=== PATIENT | male | born 1950 | race Caucasian/White ===

== ENCOUNTER → 2020-01-21 14:00 | Outpatient (BNV) | payer MEDICARE, SELFPAY | PROVIDERS: PCP Internal Medicine; Visit Provider Internal Medicine Medical Oncology | DX: C83.15 Mantle cell lymphoma, lymph nodes of inguinal region and lower limb (principal) | CPT/HCPCS: 99212; 99213; 99214 ==

== ENCOUNTER 2020-02-02 09:01 | Outpatient (REF) | payer MEDICARE, SELFPAY ==
--- NOTE | 2020-02-02 08:36 | PE_ITS ---
EXAMINATION: Fluorine-18 FDG PET/CT Scan CLINICAL INDICATION: Subsequent treatment management. Mantle cell lymphoma, restaging. PROCEDURE: 76 minutes following the intravenous administration of 15.5 mCi of fluorine 18 FDG, images from the base of the skull to the mid thighs were obtained using a combined PET/CT scanner with CT scan based attenuation correction. No oral contrast was administered. No intravenous contrast was administered. Transverse, coronal, sagittal, and volume reconstruction projections were obtained. The patient's blood glucose as determined by a finger stick, was 105 mg/dl immediately prior to injection. Total CT exam dose-length product 498.98 mGy-cm COMPARISON: The previous PET CT scans dated 12/01/2019 and 10/02/2019 are available for comparison. FINDINGS: (Slice numbers described in this report are numbered superiorly to inferiorly with slice #1 in the head) NECK AND VISUALIZED HEAD: There is been a decrease in size and FDG avid cervical lymphadenopathy compared to the prior PET CT scan dated 12/01/2019. A left-sided cervical level 1B lymph node now shows SUV Max 3.1, versus SUV Max 4.8 previously and right-sided cervical level 2A lymphadenopathy normal shows SUV Max 2.4 versus SUV Max 4.1 previously. Additional weakly FDG avid subcentimeter cervical lymphadenopathy is present at multiple levels, but these lymph nodes appear smaller and now showing only weak FDG activity. No new FDG avid or enlarging cervical lymph nodes are now present. There is some right maxillary sinus mucosal thickening with no associated abnormal FDG activity unchanged from 12/01/2019. THORAX: FDG avid lymphadenopathy in the chest persists but is less intense on the current study. A focus in the suprasternal notch now shows SUV Max 3.8 versus SUV Max 4.8 previously. Left axillary lymphadenopathy has also decreased in FDG avidity, now showing SUV Max 1.8, versus SUV Max 3.7 previously. Additional mediastinal lymph nodes are present, almost all subcentimeter in size and showing only weak FDG activity. All appear similar or smaller in size and less FDG avid than on 12/01/2019. No new FDG avid lymphadenopathy is present. The mediastinal blood pool shows SUV Max 2.8. No pulmonary nodules are visualized. A small to moderately sized right pleural effusion is present with no abnormal FDG activity. The pleural effusion is slightly smaller than on 12/01/2019. There is no left-sided pleural fluid, pericardial fluid, or pneumothorax. ABDOMEN AND PELVIS: There continues to be mildly FDG avid bowel wall thickening in the cecal and right colon region, but this is less prominent than on 12/01/2019. On the current study this shows SUV Max 4.4, slice 178/267 versus SUV Max 6.1 previously. Previously present FDG avid retroperitoneal lymphadenopathy has resolved with no foci of more intense in blood pool present in the retroperitoneum. There is now no FDG avid retroperitoneal, mesenteric, pelvic or inguinal lymphadenopathy. The liver and spleen are unremarkable. Mildly increased FDG activity in the spleen compared to the liver present on 12/01/2019 is not now present. The kidneys are unremarkable. Some retained FDG activity in the mid to distal right ureter and minimal retained FDG activity in the left ureter are noted, but on both sides this appears similar or slightly less prominent than on 12/01/2019. No hydronephrosis is present on the CT images. The adrenal glands and pancreas are unremarkable. A small fat-containing periumbilical hernia is present. Small fat-containing inguinal hernias are present bilaterally and a stable appearing left-sided hydrocele is present and a very small right-sided hydrocele is present, smaller than on 12/01/2019. The liver shows SUV Max 3.6, slice 119/267. Peripherally calcified gallstones are present, unchanged from 12/01/2019. The gallbladder is otherwise unremarkable. MUSCULOSKELETAL: There is diffusely increased FDG activity in the axial bone marrow similar to 12/01/2019. No focal more intensely FDG avid lesions are present. There are degenerative changes in the spine but no suspicious sclerotic or lytic lesions are present. VASCULAR: Vascular calcifications including coronary are noted. PET/PET CT fusion skull to thigh IMPRESSION: 1. Continued improvement of FDG avid lymphadenopathy and FDG avid right colonic bowel wall thickening since 12/01/2019. No new FDG avid foci are present. Using the 5 point Deauville scale, this patient would be classified as a Deauville score of 4. 2. Cholelithiasis. 3. Vascular calcifications including coronary. 4. Small to moderately sized right pleural effusion which has decreased in size slightly since 12/01/2019.
== END 2020-02-02 09:02 | disposition home or self-care (01) ==
LOC: HO.PET 09:01
PROVIDERS: Visit Provider Internal Medicine Medical Oncology
DX: Z13.89 Encounter for screening for other disorder (principal)

== ENCOUNTER → 2020-02-10 09:21 | Outpatient (REF) | payer MEDICARE, SELFPAY ==
--- NOTE | 2020-02-10 09:25 | CA_ITS ---
Transthoracic Echocardiogram Patient (Last, First, Middle): Porfirio Nobles J Gender: Male Date of : 1950 Age: 69 Procedure Date: 02/10/2020 Procedure Type: Transthoracic Echocardiogram Location: OP Height: 165.1 cm Weight: 72.58 kg BSA: 1.80 m2 Heart Rate: bpm BP: 150 / 60 mmHg [employer] Specialist: RERE Olivares MD: Leslie Galvan MD Category Manager: Syed Lr MD Symptoms: status post 6 cycles of Adriamycin Study Quality: Good ECG Rhythm: Sinus Conclusions: - Normal biventricular function with impaired relaxation filling pattern of the left ventricle Findings Left Ventricle Normal left ventricular size, thickness, and systolic function. The visually estimated ejection fraction is between 60-65%. Spectral Doppler is indicative of an impaired relaxation filling pattern. E/E prime ratio is between 8 and 15 consistent with indeterminate filling pressures. Right Ventricle Normal right ventricular cavity size and systolic function. Pericardium/Pleural There is no evidence of pericardial effusion. Prior Study Comparison No significant change compared to prior study dated: 10/12/2019. Measurements 2D Linear Measurements LVIDd: 4.53 3.9-5.3/4.2-5.9 cm LVIDd Index: 2.52 2.4-3.2/2.2-3.1 cm/m2 LVIDs: 2.69 2.0-3.6 cm 2D Systolic Function EF 4C: 46.00 >55% EF 2C: 61.30 >55% EF BiP: 53.90 >55% Mitral Valve MV Pk E: 0.66 MV PK A: 0.83 MV Decel Time: 235.00 E/A: 0.80 E'Lateral: 7.40 E'Medial: 5.87 E/E' Med: 11.30 E/E' Lat: 8.90 PHT: 69.00 MVA PHT: 3.19 Decel Juab: 2.82 Diastolic Function MV Pk E: 0.66 MV Pk A: 0.83 E/A: 0.80 E'Medial: 5.87 E/E' Med: 11.30 E' Laterial: 7.40 E/E' Lat: 8.90 Tricuspid Valve TR Pk Fidencio: 2.52 TR Pk Grad: 25.00 Updated in Other Vendor System with Status of Final Syed Lr MD electronically signed on 02/10/2020 11:20:35 AM with status of Final
== END ==
LOC: HO.CARD 09:21
PROVIDERS: Visit Provider Internal Medicine Medical Oncology
DX: T45.1X5A Adverse effect of antineoplastic and immunosuppressive drugs, initial encounter (principal)
CPT/HCPCS: 93308; 93356

== ENCOUNTER 2020-08-18 12:03 | Outpatient (REF) | payer MEDICARE, SELFPAY ==
[2020-08-18 14:50] LABS: PSA,Total (Free>4and<10) 9.77 ng/mL (0.00-4.00)
[2020-08-19 11:32] LABS: Free Prostate Spec Ag 1.6 ng/mL; Percent Free Prostate Spec Ag 18 % (calc) (>25); Prostate Specific Ag Total 9.1 ng/mL (< OR = 4.0)
== END 2020-08-18 12:04 | disposition home or self-care (01) ==
LOC: HO.10HDL 12:03
PROVIDERS: Visit Provider Urology
DX: R97.20 Elevated prostate specific antigen [PSA] (principal); Z12.5 Encounter for screening for malignant neoplasm of prostate
CPT/HCPCS: 36415; 84153; 84154

== ENCOUNTER → 2020-09-02 14:18 | Outpatient (BNVA) | payer MEDICARE, SELFPAY | PROVIDERS: PCP Internal Medicine; Visit Provider Urology | DX: Z13.89 Encounter for screening for other disorder (principal) | CPT/HCPCS: 99212 ==

== ENCOUNTER 2020-09-16 12:33 | Outpatient (REF) | payer MEDICARE, SELFPAY ==
--- NOTE | ~2020-09-16 | CT_ITS ---
EXAMINATION: CT ABDOMEN AND PELVIS WITH CONTRAST CLINICAL INFORMATION: Follow-up lymphoma. COMPARISON: None TECHNIQUE: Multidetector volumetric images were obtained from the superior aspect of the liver through the pubic symphysis following administration 85 mL of Omnipaque 350 intravenous contrast. Sagittal and coronal reformatted images were obtained on the technologist's workstation. Oral contrast: No This CT examination was performed using dose optimization techniques as appropriate, variously including the following: *Automated exposure control *Adjustment of mA and/or kV according to patient size (this includes techniques or standardized protocols for targeted exams where dose is matched to indication/reason for exam; i.e. extremities or head) *Use of iterative reconstruction technique DLP: 456 mGy-cm FINDINGS: LUNG BASES: The heart size is normal. The lung bases are clear. LIVER, GALLBLADDER, AND BILIARY TREE: The liver is normal in size, shape, and attenuation. No focal hepatic lesion or biliary ductal dilatation is present. As solitary gallstone measuring 2.3 cm. No gallbl.adder wall thickening seen. PANCREAS: Unremarkable. SPLEEN: Unremarkable. ADRENAL GLANDS: The right adrenal gland appears unremarkable. There is 1.5 x 1.5 cm lesion left adrenal gland. KIDNEYS AND URETERS: The kidneys are normal in size, shape, and attenuation. No hydronephrosis, hydroureter, or calculi seen. No perinephric stranding. BLADDER: The bladder is undistended with mild bladder wall thickening. GASTROINTESTINAL TRACT: There is a soft tissue mass measuring 2.3 cm in the cecum, axial image 50/3, 2.6 cm lesion in the right transverse colon on axial image 31/3. No additional lesions seen. There is scattered stool in the colon. The small bowel loops are normal caliber appendix is not seen the stomach is nondistended. ABDOMINAL WALL: There is a small umbilical hernia containing fat . LYMPH NODES: There are small shotty lymph nodes measuring 5 mm in the left para-aortic space image 30/3, right retroperitoneal 1.3 cm lymph node axial image 44/3, right retrocrural 1 cm lymph node image 17/3. No mesenteric lymph nodes seen. Soft tissue mass along the left pelvic wall likely matted lymphadenopathy it measures 7.0 x 4.0 cm on axial image 60/3, previously it measured 5.6 x 3.5 cm. There is a central calcified lymph node right axillary iliac vein measuring 2.2 cm and axial image 62/3 it appears stable. VASCULAR: Unremarkable. PELVIC VISCERA: There is mild prostate enlargement. The periprostatic fat planes are preserved. OSSEOUS STRUCTURES: No lytic or sclerotic process seen. There is vacuum disc phenomena L4-L5-S1 disc levels. Moderate L5-S1, L4-L5 and L3-L4 facet arthropathy is noted. CT/CT abdomen pelvis w con IMPRESSION: Left pelvic wall matted adenopathy appears slightly larger compared to PET CT exam 09/16/2020. There are small shotty lymph nodes in the retroperitoneum largest measuring 1 cm. Prominent matted right external iliac calcified lymph nodes are stable. There are soft tissue lesions in the cecum and right transverse colon. These lesions were metabolically active on the previous PET study from 02/02/2020. Significantly enlarged prostate gland indenting the base of bladder with mild bladder wall thickening. The bladder is undistended.
[2020-09-16] MEDS: iohexoL 350 MG/ML 100 ML INFUS..BTL IV (15:56)
[2020-09-16] MEDS: Barium Sulfate Oral (Vanilla) 450 ML ORAL.SUSP 900 ML PO (16:03)
== END 2020-09-16 12:34 | disposition home or self-care (01) ==
LOC: HO.CT 12:33
PROVIDERS: PCP Internal Medicine; Visit Provider Internal Medicine Medical Oncology
DX: C83.10 Mantle cell lymphoma, unspecified site (principal)
CPT/HCPCS: 74177; Q9967

== ENCOUNTER 2020-10-13 10:20 | Outpatient (REF) | payer MEDICARE, SELFPAY ==
[2020-10-13 14:02] LABS: Cholesterol 162 mg/dL; HDL Cholesterol 54 mg/dL; LDL Cholesterol Calculated 87 mg/dl; Triglycerides 105 mg/dL
== END 2020-10-13 10:21 | disposition home or self-care (01) ==
LOC: HO.10HDL 10:20
PROVIDERS: PCP Internal Medicine; Visit Provider Internal Medicine
DX: I10 Essential (primary) hypertension (principal); E78.00 Pure hypercholesterolemia, unspecified
CPT/HCPCS: 36415; 80061

== ENCOUNTER 2020-11-29 09:18 | Outpatient (REF) | payer MEDICARE, SELFPAY ==
--- NOTE | ~2020-11-29 | PE_ITS ---
EXAMINATION: Fluorine-18 FDG PET/CT Scan CLINICAL INDICATION: Subsequent treatment management. Mental cell lymphoma, restaging. PROCEDURE: 58 minutes following the intravenous administration of 14.9 mCi of fluorine 18 FDG, images from the base of the skull to the mid thighs were obtained using a combined PET/CT scanner with CT scan based attenuation correction. No oral contrast was administered. No intravenous contrast was administered. Transverse, coronal, sagittal, and volume reconstruction projections were obtained. The patient's blood glucose as determined by a finger stick, was 114 mg/dl immediately prior to injection. Total CT exam dose-length product 776.77 mGy-cm * These CT images were obtained using dose optimization techniques as appropriate, variously including the following: Automated exposure control * Adjustment of mA and/or kV according to patient size (this includes techniques or standardized protocols for targeted exams where dose is matched to indication/reason for exam; i.e. extremities or head) * Use of iterative reconstruction technique COMPARISON: Multiple previous PET/CT scans are available for comparison, the most recent dated 02/02/2020 and the least recent dated 10/02/2019. The diagnostic CT scan of the abdomen and pelvis, dated 09/16/2020, is available for comparison. FINDINGS: (Slice numbers described in this report are numbered superiorly to inferiorly with slice #1 in the head) NECK AND VISUALIZED HEAD: There is an FDG avid right-sided cervical level IIb lymph node, SUVmax 3.9, slice 30/267 corresponding to a 2.6 x 1.5 cm lymph node on the corresponding CT images. This is significantly more intense than minimal FDG activity in this lymph node which was smaller on the prior 02/02/2020 study. A left-sided cervical level 1B lymph no shows mild FDG activity, SUVmax 3.7, slice 35/267, slightly more intense than previously when this showed SUVmax 3.1. Multiple right-sided cervical level IIa lymph nodes show mild FDG activity with the most intense showing SUVmax 3.7, slice 35/267 versus SUVmax 2.5 and the same lymph node on 02/02/2020. Several smaller and less FDG avid cervical lymph nodes are present bilaterally, more prominently on the right, including a right supraclavicular lymph node, slice 52/267 which was not present on 02/02/2020.. THORAX: There is a moderately FDG avid midline soft tissue density in the suprasternal notch showing SUVmax 7.4, slice 65/267. This is significantly more intense compared to 02/02/2020 when this showed SUVmax 3.8, but on the baseline PET CT scan dated 10/02/2019 this is much more intense, showing SUVmax 7.8. Bilateral FDG avid axillary lymph nodes are present, the most intense on the left showing SUVmax 3.5, slice 77/267 more intense than on 02/02/2020 when this showed SUVmax 1.8. Small mediastinal lymph nodes are present which may be weakly FDG avid but are too small to be well characterized on the FDG PET images. The most prominent of these is in the AP window, slice 80/267 a subcentimeter lymph node showing SUVmax 1.8, slice 80/267. No parenchymal FDG avid lesions are present in either lung. No definite pulmonary nodules are visualized. There is no pleural or pericardial fluid. ABDOMEN AND PELVIS: There is increased FDG activity associated with wall thickening in the cecal region, SUVmax 5.4. These correspond to soft tissue densities better visualized on the oral contrast enhanced diagnostic CT scan dated 09/16/2020. There is an FDG avid left pelvic mass likely a markedly enlarged left external iliac lymph node, showing SUVmax 6.2, slice 193/267 and measuring 8.3 x 5.7 cm in largest transverse dimensions and 7.4 cm cephalocaudad. This is more intense than on 02/02/2020 when this showed SUVmax 4.3. There are additional FDG avid right external iliac lymph nodes and bilateral FDG avid inguinal lymph nodes all more prominent than on 02/02/2020. The liver and spleen are unremarkable. SUVmax in the liver is 3.4, slice 121/267. Cholelithiasis are present but the gallbladder is otherwise unremarkable. The kidneys are unremarkable. A left adrenal nodule now measures 1.5 x 1.1 cm similar to prior studies and only weakly FDG avid. The right adrenal gland is unremarkable. The pancreas is unremarkable. The prostate gland is enlarged measuring 6.5 cm in largest transverse dimension with no foci of abnormal FDG activity. The pelvic organs are otherwise unremarkable. MUSCULOSKELETAL: No foci of abnormal FDG activity are present in the osseous structures. There are diffuse degenerative changes in the spine but no suspicious sclerotic or lytic lesions are visualized. There is some residual radiopharmaceutical in the left antecubital fossa region. This is likely from some small infiltration at the injection site, but the worksheet indicates the injection was made in the right antecubital fossa. VASCULAR: Vascular calcifications including coronary are noted. PET/PET CT fusion skull to thigh IMPRESSION: There is an increase in size and FDG avidity of multiple soft tissue lesions as described above, the most intense in the suprasternal notch, and the largest in the left side of the pelvis. Using the 5 point Deauville scale, this patient would be classified as a Deauville score of 5. A prominent focus of FDG activity in the left antecubital fossa is likely some residual radiopharmaceutical infiltrated at the injection site, but the worksheet indicates the injection was made in the right antecubital fossa. Clinical correlation is recommended.
== END 2020-11-29 09:19 | disposition home or self-care (01) ==
LOC: HO.PET 09:18
PROVIDERS: PCP Internal Medicine; Visit Provider Internal Medicine Medical Oncology
DX: Z13.89 Encounter for screening for other disorder (principal)

== ENCOUNTER → 2020-12-20 10:46 | Day surgery (SDC) | payer MEDICARE, SELFPAY ==
[2020-12-20 11:15] VITALS: BMI 29.0
--- NOTE | 2020-12-20 11:39 | PC.NURSE ---
Call received from [employer], that patients procedure was being changed to US guided biopsy versus CT guided biopsy. This verified with Dr. Bowles over the phone by this nurse. Per her, patient still needs PT/INR. This discussed with [employer] over the phone. [employer] to put in new PT/INR orders for outpatient blood draw. Patient made aware of change and knows to go from [facility] to outpatient phlebotomy followed by ultrasound department at 12:30 for procedure.
== END | disposition home or self-care (01) ==
PROVIDERS: PCP Internal Medicine; Visit Provider Radiology Diagnostic Radiology
DX: C83.15 Mantle cell lymphoma, lymph nodes of inguinal region and lower limb (principal); Z53.8 Procedure and treatment not carried out for other reasons
CPT/HCPCS: 36415; 88184; 88185; 88300; 88305; 88341; 88342; 88360

== ENCOUNTER 2020-12-20 12:33 | Outpatient (REF) | payer MEDICARE, SELFPAY ==
--- NOTE | ~2020-12-20 | US_ITS ---
EXAMINATION: US BIOPSY LYMPH NODE CLINICAL INFORMATION: Mantle cell lymphoma. Increasing lymphadenopathy. COMPARISON: Previous CT of the abdomen and pelvis 09/16/2020 and PET/CT scan 11/29/2020. TECHNIQUE: Procedure risks and benefits including bleeding and infection were discussed with the patient and informed consent was obtained. The left groin was prepped and draped in the usual sterile fashion. The skin and soft tissues were anesthetized with 1% lidocaine plain. Using ultrasound guidance and a coaxial system, access to an enlarged left inguinal lymph node was obtained. Total of 6 20-gauge core biopsies were obtained and placed in formalin and flow cytometry solution. FINDINGS: There are enlarged left external iliac and left inguinal lymph nodes. An enlarged 5.2 x 1.7 x 2.2 cm left inguinal lymph node was targeted for core biopsy. US/US biopsy lymph node IMPRESSION: Ultrasound-guided left inguinal lymph node core biopsy.
[2020-12-20 13:25] LABS: MANUAL DIFF FLAG NO
[2020-12-20 13:49] LABS: Basophils Percent Auto 0.4 % (0-2); Eosinophils Absolute Auto 0.2 X10*3/uL (0.0-0.4); Eosinophils Percent Auto 2.3 % (0-4); Hematocrit 40.1 % (42-52); Hemoglobin 13.5 g/dl (14.0-18.0); Imm Gran Abs Auto 0.05 X10*3/uL (0.00-0.03); Imm Gran Pct Auto 0.5 % (0.0-0.4); Lymphocytes Absolute Auto 1.3 X10*3/uL (1.2-4.9); Lymphocytes Percent Auto 14.4 % (20-40); Mean Corpuscular HGB Conc 33.7 g/dl (31.0-36.0); Mean Corpuscular Hemoglobin 32.3 pg (27.0-33.0); Mean Corpuscular Volume 95.9 fL (80-98); Mean Platelet Volume 9.8 fL (9.4-12.4); Monocytes Absolute Auto 0.8 X10*3/uL (0.1-1.2); Monocytes Percent Auto 8.7 % (2-11); Neutrophils Absolute Auto 6.9 X10*3/uL (2.0-8.3); Neutrophils Percent Auto 73.7 % (45-73); Platelet Count 264 X10*3/uL (160-400); Red Blood Count 4.18 X10*6/uL (4.60-5.80); White Blood Count 9.3 X10*3/uL (4.8-10.8)
[2020-12-20 13:54] LABS: Alanine Aminotransferase 24 U/L (0-40); Albumin Level 4.4 g/dL (3.5-5.0); Alkaline Phosphatase 81 U/L (39-117); Anion Gap 15 (12-20); Aspartate Amino Transferase 26 U/L (5-37); Bilirubin Total 0.6 mg/dL (0.0-1.0); Blood Urea Nitrogen 14 mg/dL (9-16); Calcium 9.8 mg/dL (8.4-10.2); Carbon Dioxide 25 mmol/L (22-29); Chloride 108 mmol/L (96-108); Estimated Glomerular Filt Rate > 60; Glucose Random 103 mg/dL (60-115); Lactate Dehydrogenase 255 U/L (118-273); Potassium 5.2 mmol/L (3.3-5.1); Sodium 143 mmol/L (135-145); Total Protein 6.8 g/dL (6.5-8.0)
[2020-12-20] MEDS: Lidocaine HCl 1 % MPF 5 ML VIAL SUBCUT (14:31)
== END 2020-12-20 12:34 | disposition home or self-care (01) ==
LOC: HO.US 12:33
PROVIDERS: PCP Internal Medicine; Visit Provider Internal Medicine Medical Oncology
DX: R59.0 Localized enlarged lymph nodes (principal); C83.10 Mantle cell lymphoma, unspecified site
CPT/HCPCS: 36415; 38505; 76942; 80053; 83615; 85025; 88184; 88185; 88300; 88305; 88341; 88342; 88360

== ENCOUNTER 2021-01-10 12:27 | Day surgery (SDC) | payer MEDICARE, SELFPAY ==
[2021-01-10 13:01] VITALS: BP 181/80; PULSE 89; RESP 16; TEMP 36.8; O2SAT 100; BMI 29.9
--- NOTE | 2021-01-10 13:38 | HO.ANESPROP2 ---
[facility] Active Problems Active Problems: All Active Problems (Updated 01/09/21 @ 10:38 by Sadaf Cortés, RN) Mantle cell lymphoma (Acute) Mantle cell lymphoma (Acute) Hypotonic neurogenic bladder (Acute) Elevated PSA (Acute) Past Medical History Medical History (Updated 01/09/21 @ 10:38 by Sadaf Cortés, RN) Hx of pleural effusion Hyperlipidemia Hypertension Mantle cell lymphoma Family History Family History Father Carotid artery stenosis Mother Kidney failure Surgical History Surgical History History of medial meniscus repair of right knee Social History Social History (Updated 12/02/20 @ 10:45 by Norberto Barraza) Are you a primary nurse healthcare manager to a significant other at home: No Alcohol intake: current Alcohol intake frequency: a few times a week Patient Tobacco Use Status: Former Tobacco user Are you DNR?: No Advance Directives: Yes Advance Directives on File: Yes Advance Directives Date on File: 12/31/19 Meds Allergies Allergy/AdvReac Type Severity Reaction Status Date / Time No Known Allergies Allergy Verified 12/20/20 11:16 Home Medications Medication Instructions Recorded Confirmed Last Taken Type ferrous sulfate 325 mg (65 mg 325 mg PO DAILY 01/07/20 12/27/20 01/10/21 History iron) tablet (iron) lisinopril 10 mg tablet 10 mg PO DAILY 01/07/20 12/27/20 01/10/21 History multivitamin 1 tab PO DAILY 01/07/20 12/27/20 01/10/21 History simvastatin 80 mg tablet 80 mg PO BEDTIME 01/07/20 12/27/20 01/10/21 History Exam Exam Date and Time: January 10, 2021 1338 Height,Weight and Vital Signs: Height 5 ft 5 in Weight 81.647 kg Last Vital Signs Temp 98.3 F 01/10/21 13:01 Pulse 89 01/10/21 13:01 Resp 16 01/10/21 13:01 BP 181/80 H 01/10/21 13:01 Pulse Ox 100 01/10/21 13:01 Airway Mallampati Class: II TM Dist: >3cm Neck ROM: Full
[2021-01-10] MEDS: Lactated Ringers 1,000 ML 100 ML IVCONT (13:44)
[2021-01-10 14:16] VITALS: BP 127/76; PULSE 82; RESP 17; TEMP 37.4; O2SAT 97
--- NOTE | 2021-01-10 14:19 | PM.HEMONCBM ---
Bone Marrow Aspiration - Bone Marrow Aspiration Procedure:: *Service Date: [01/10/21] Pre Op Diagnosis:: Diffuse large B-cell lymphoma. Post Op Diagnosis:: Same. Surgeon:: Leslie Galvan. Anesthesia:: MAC. Consent:: Informed consent obtained from the patient for the procedure. Pros and cons of biopsy explained. The patient was willing to proceed with the procedure under MAC and local anesthesia. Procedure in Detail:: *Service Date: 01/10/21. *Procedure: Bone marrow aspiration and biopsy. *Pre Op Dx: Diffuse large B-cell lymphoma. *Post Op Dx: Diffuse large B-cell lymphoma. *Surgeon: Leslie Galvan. The patient was positioned prone. The left posterior superior iliac spine prepped and draped. The patient was anesthetized under MAC. Under aseptic precautions, 5 ml of 1% lidocaine used for local anesthesia. Bone marrow aspirate was taken. With the Jamshidi needle, a core biopsy obtained without any complications. Specimens were sent for Zhao stain, flow cytometry and cytogenetics. Biopsy was sent for histology. The patient tolerated the procedure well. Bandage was applied and patient was positioned on his back for 10 to 15 minutes after the procedure. The patient was advised to call us if he develops any pain or swelling at the surgical site. Follow up in 2 weeks.
[2021-01-10 14:30] VITALS: BP 135/65; PULSE 84; RESP 16; TEMP 36.5; O2SAT 97
[2021-01-10 14:30] LABS: Bone Marrow SEE SEPARATE REPORT
[2021-01-10 14:46] VITALS: BP 138/65; PULSE 84; RESP 16; O2SAT 97
[2021-01-10 15:00] VITALS: BP 144/67; PULSE 84; RESP 16; TEMP 36.1; O2SAT 97
== END 2021-01-10 16:04 | disposition home or self-care (01) ==
LOC: HO.SSS 12:28
PROVIDERS: PCP Internal Medicine; Visit Provider Internal Medicine Medical Oncology
PROC: (CPT 38221; principal; 2021-01-10 13:40)
DX: C83.15 Mantle cell lymphoma, lymph nodes of inguinal region and lower limb (principal); I10 Essential (primary) hypertension; E78.5 Hyperlipidemia, unspecified; Z87.09 Personal history of other diseases of the respiratory system; Z79.899 Other long term (current) drug therapy
CPT/HCPCS: 38222; 36415; 85097; 88184; 88185; 88237; 88264; 88280; 88305; 88311; 88313; J1100; J1642; J2250; J2405; J3010

== ENCOUNTER 2021-03-09 12:33 | Outpatient (REF) | payer MEDICARE, SELFPAY ==
[2021-03-09 15:00] LABS: PSA,Total (Free>4and<10) 12.05 ng/mL (0.00-4.00)
== END 2021-03-09 12:34 | disposition home or self-care (01) ==
LOC: HO.10HDL 12:33
PROVIDERS: Visit Provider Urology
DX: Z12.5 Encounter for screening for malignant neoplasm of prostate (principal); R97.20 Elevated prostate specific antigen [PSA]
CPT/HCPCS: 36415; 84153

== ENCOUNTER → 2021-03-17 11:36 | Outpatient (BNVA) | payer MEDICARE, SELFPAY | PROVIDERS: PCP Internal Medicine; Visit Provider Urology ==

== ENCOUNTER → 2021-03-22 08:48 | Outpatient (BNVA) | payer MEDICARE, SELFPAY | PROVIDERS: PCP Internal Medicine; Visit Provider Urology | DX: Z13.89 Encounter for screening for other disorder (principal) | CPT/HCPCS: Q3014 ==

== ENCOUNTER 2021-05-11 09:59 | Outpatient (REF) | payer MEDICARE, SELFPAY ==
--- NOTE | ~2021-05-11 | PE_ITS ---
EXAMINATION: Fluorine-18 FDG PET/CT Scan CLINICAL INDICATION: Subsequent treatment management. Mantle cell lymphoma, restaging. PROCEDURE: 53 minutes following the intravenous administration of 14.5 mCi of fluorine 18 FDG, images from the base of the skull to the mid thighs were obtained using a combined PET/CT scanner with CT scan based attenuation correction. No oral contrast was administered. No intravenous contrast was administered. Transverse, coronal, sagittal, and volume reconstruction projections were obtained. The patient's blood glucose as determined by a finger stick, was 109 mg/dl immediately prior to injection. Total CT exam dose-length product 601.90 mGy-cm * These CT images were obtained using dose optimization techniques as appropriate, variously including the following: Automated exposure control * Adjustment of mA and/or kV according to patient size (this includes techniques or standardized protocols for targeted exams where dose is matched to indication/reason for exam; i.e. extremities or head) * Use of iterative reconstruction technique COMPARISON: Multiple prior PET/CT scans are available for comparison. The most recent is dated 11/29/2020 and the least recent is dated 10/02/2019. FINDINGS: (Slice numbers described in this report are numbered superiorly to inferiorly with slice #1 in the head) NECK AND VISUALIZED HEAD: There is weak FDG activity in the right cervical level IIb lymph node, SUVmax 2.4, slice 37/267. This lymph node now measures 1.8 x 1.1 cm in largest transverse dimensions. It is smaller and less FDG avid than on the prior 11/29/[address] scan dated 11/29/2020 when this showed SUVmax 3.9 and measured 2.6 x 1.5 cm. No other foci of abnormal FDG activity are present in the neck or visualized head. Multiple additional FDG avid cervical lymph nodes present bilaterally on the prior 11/29/2020 PET/CT scan are no longer present. The distribution of FDG activity is physiological. There is no additional cervical lymphadenopathy. THORAX: There is very mild FDG activity in the suprasternal notch region near the midline, SUVmax 2.8, slice 71/267. This is associated with a soft tissue density which is now subcentimeter in size. This is slightly more intense than the mediastinal blood pool which shows SUVmax 2.7, slice 94/267. The focus is much less intense than on 11/29/2020 when this showed SUVmax 7.4 and is much smaller in size on the CT images. No additional foci of abnormal FDG activity are present in the chest. Bilateral FDG avid axillary lymphadenopathy present on 11/29/2020 has also resolved. There is now no additional mediastinal, supraclavicular, or axillary lymphadenopathy. No pulmonary nodules are visualized. There is no pleural or pericardial fluid, or pneumothorax. A right-sided chest port with internal jugular catheter terminating in the superior vena cava is noted. ABDOMEN AND PELVIS: There is mild FDG activity present throughout the gastrointestinal tract, without a suspicious focal component. Focal accentuation in the cecal region present on the prior 11/29/[address] scan is no longer present. There is diverticulosis without evidence of diverticulitis. The hollow viscera are otherwise unremarkable. There is mildly increased FDG activity associated with an enlarged left external iliac lymph node, SUVmax 4.5, slice 203/267. This is slightly less intense than the SUVmax in the liver which is 4.7, slice 132/267. This now measures 6.3 x 2.9 cm in largest transverse dimensions, but is difficult to separate from adjacent vascular structures on these nondiagnostic CT images performed without intravenous contrast. The focus is significantly smaller and less intensely FDG avid than on 11/29/2020 when this showed SUVmax 6.2 and was measured 8.3 x 5.2 cm in largest transverse dimensions. Mildly FDG avid right external iliac and bilateral inguinal lymphadenopathy is present, but all this is less intense than on the prior 11/29/2020 scan. Machine Grinder is predominantly subcentimeter left inguinal lymphadenopathy that shows SUVmax 3.5, slice 226/267, slightly less intense than the same region previously, measured in retrospect is SUVmax 3.9 on the eighth 07/26/[address] scan. No additional foci of abnormal FDG activity are present in the abdomen or pelvis. The liver and spleen are unremarkable. Subtly peripherally calcified gallbladder calculi are present in the gallbladder neck, but the gallbladder is otherwise unremarkable. The kidneys, adrenal glands and pancreas are unremarkable. There is no additional retroperitoneal or mesenteric lymphadenopathy. A moderately sized fat-containing midline periumbilical ventral hernia is present, unchanged in appearance from 11/29/2020. The prostate gland is enlarged measuring 6.7 cm in largest transverse dimensions. The pelvic organs are otherwise unremarkable. MUSCULOSKELETAL: There are no foci of abnormal FDG activity in the osseous structures. There are diffuse degenerative changes in the spine but no suspicious sclerotic or lytic lesions are visualized. VASCULAR: Vascular calcifications including diffuse coronary calcifications are noted. PET/PET CT fusion skull to thigh IMPRESSION: 1. There has been marked improvement in FDG avid lymphadenopathy present at multiple sites on the prior 11/29/[address] scan. Several of these continue to show mild FDG activity which is similar or slightly more intense than the mediastinal blood pool but significantly less intense than the liver. No new FDG avid lesions are present. Using the 5 point Deauville scale, this patient would be classified as a Deauville score of 3. 2. Cholelithiasis. 3. Vascular calcifications including coronary.
== END 2021-05-11 10:00 | disposition home or self-care (01) ==
LOC: HO.PET 09:59
PROVIDERS: PCP Internal Medicine; Visit Provider Internal Medicine Medical Oncology
DX: Z13.89 Encounter for screening for other disorder (principal)

== ENCOUNTER 2021-08-14 11:35 | Outpatient (REF) | payer MEDICARE, SELFPAY ==
[2021-08-14 13:12] LABS: MANUAL DIFF FLAG NO
[2021-08-14 13:22] LABS: Basophils Percent Auto 0.5 % (0-2); Eosinophils Absolute Auto 0.2 X10*3/uL (0.0-0.4); Hematocrit 40.4 % (42.0-52.0); Hemoglobin 13.2 g/dl (14.0-18.0); Imm Gran Abs Auto 0.04 X10*3/uL (0.00-0.03); Imm Gran Pct Auto 0.5 % (0.0-0.4); Mean Corpuscular HGB Conc 32.7 g/dl (31.0-36.0); Mean Corpuscular Hemoglobin 32.3 pg (27.0-33.0); Mean Corpuscular Volume 98.8 fL (80.0-98.0); Mean Platelet Volume 11.2 fL (9.4-12.4); Monocytes Absolute Auto 0.7 X10*3/uL (0.1-1.2); Monocytes Percent Auto 8.3 % (2-11); Neutrophils Absolute Auto 5.1 x10*3/uL (2.0-8.3); Neutrophils Percent Auto 62.7 % (45-73); Platelet Count 216 X10*3/uL (160-400); Red Blood Count 4.09 X10*6/uL (4.60-5.80); White Blood Count 8.1 X10*3/uL (4.8-10.8)
[2021-08-14 13:46] LABS: Alanine Aminotransferase 24 U/L (0-40); Albumin Level 4.4 g/dL (3.5-5.0); Alkaline Phosphatase 64 U/L (39-117); Anion Gap 19 (12-20); Aspartate Amino Transferase 25 U/L (5-37); Bilirubin Total 0.3 mg/dL (0.0-1.0); Blood Urea Nitrogen 20 mg/dL (9-16); Calcium 9.6 mg/dL (8.4-10.2); Carbon Dioxide 18 mmol/L (22-29); Chloride 108 mmol/L (96-108); Cholesterol 179 mg/dL; Estimated Glomerular Filt Rate > 60; Glucose Fasting 97 mg/dL (60-99); HDL Cholesterol 58 mg/dL; LDL Cholesterol Calculated 101 mg/dl; Potassium 4.8 mmol/L (3.3-5.1); Sodium 140 mmol/L (135-145); Total Protein 7.2 g/dL (6.5-8.0); Triglycerides 104 mg/dL
== END 2021-08-14 11:36 | disposition home or self-care (01) ==
LOC: HO.10HDL 11:35
PROVIDERS: Visit Provider Internal Medicine
DX: E78.00 Pure hypercholesterolemia, unspecified (principal); I10 Essential (primary) hypertension
CPT/HCPCS: 36415; 80053; 80061; 85025

== ENCOUNTER 2021-10-12 07:51 | Outpatient (REF) | payer MEDICARE, SELFPAY ==
--- NOTE | ~2021-10-12 | CT_ITS ---
EXAMINATION: CT ABDOMEN AND PELVIS WITH CONTRAST CLINICAL INFORMATION: Mental cell lymphoma COMPARISON: Previous CT of the abdomen and pelvis most recent September 2020 TECHNIQUE: Multidetector volumetric images were obtained from the superior aspect of the liver through the pubic symphysis following administration 85 mL of Omnipaque 350 intravenous contrast. Sagittal and coronal reformatted images were obtained on the technologist's workstation. Oral contrast: Yes This CT examination was performed using dose optimization techniques as appropriate, variously including the following: *Automated exposure control *Adjustment of mA and/or kV according to patient size (this includes techniques or standardized protocols for targeted exams where dose is matched to indication/reason for exam; i.e. extremities or head) *Use of iterative reconstruction technique DLP: 402 mGy-cm FINDINGS: LUNG BASES: The visualized lung bases are unremarkable. LIVER, GALLBLADDER, AND BILIARY TREE: The liver is normal in size, shape, and attenuation. No focal hepatic lesion or biliary ductal dilatation is present. Gallstone. PANCREAS: Unremarkable. SPLEEN: Unremarkable. ADRENAL GLANDS: There is a stable 1.7 x 1.8 cm left adrenal nodule. The right adrenal gland is normal. KIDNEYS AND URETERS: There is no appreciable hydronephrosis. There is bilateral mid ureteral dilatation. No stone is seen. BLADDER: The prostate gland is enlarged and protrudes into the base of the bladder. There is a soft tissue mass at the base of the bladder presumably related to lobulated contour of the prostate gland. This is similar to previous exams. There is mild diffuse bladder wall thickening.. GASTROINTESTINAL TRACT: There is mild diverticulosis of the colon. Small and large bowel is otherwise normal. Cecal mass is no longer seen. The appendix is not seen. The stomach is normal. ABDOMINAL WALL: There is an umbilical hernia containing fat. LYMPH NODES: There is interval decrease in retrocrural and bilateral pelvic retroperitoneal and inguinal lymphadenopathy. There is some residual bilateral external iliac and inguinal partially calcified lymphadenopathy. There are small retroperitoneal lymph nodes in the lower abdomen and upper pelvis that are stable No new or increasing lymphadenopathy is seen. VASCULAR: There is evidence of atherosclerotic disease. No aneurysm is seen. PELVIC VISCERA: The prostate gland is enlarged and protrudes into the base of the bladder. There is abnormal soft tissue at the base of the bladder, presumably related to lobulated contour of the prostate gland. This could be further evaluated with ultrasound if clinically indicated. OSSEOUS STRUCTURES: There are degenerative changes of the spine. CT/CT abdomen pelvis w con IMPRESSION: Decreasing retrocrural and pelvic peritoneal lymphadenopathy. There are small lymph nodes in the lower abdomen and upper pelvis that are stable. No hydronephrosis. Increasing bilateral mid ureteral dilatation. Distal ureters do not appear dilated and no stone is seen. Enlarged prostate gland that protrudes into the base of the bladder. Abnormal soft tissue at the base of the bladder that is stable and probably related to lobulated contour of the prostate gland. This could be further evaluated with ultrasound if clinically indicated. Mild diffuse bladder wall thickening. Gallstone. Stable left adrenal lesion. Resolved cecal mass. Fleischner guidelines were followed.
--- NOTE | ~2021-10-12 | CT_ITS ---
EXAMINATION: CT CHEST WITH CONTRAST CLINICAL INFORMATION: Follow-up mantle cell lymphoma COMPARISON: Previous chest CT scans most recent September 2019 and PET/CT most recent September 2019 TECHNIQUE: Multidetector volumetric CT imaging of the chest was obtained after the administration of 85 mL of Omnipaque 350 intravenous contrast without immediate adverse reactions. Axial MIP volume rendering provided. Sagittal and coronal reformatted images were obtained. This CT examination was performed using dose optimization techniques as appropriate, variously including the following: *Automated exposure control *Adjustment of mA and/or kV according to patient size (this includes techniques or standardized protocols for targeted exams where dose is matched to indication/reason for exam; i.e. extremities or head) *Use of iterative reconstruction technique DLP: 151 mGy-cm FINDINGS: LUNGS: There are increased peripheral reticular markings and attenuation suggestive of mild interstitial lung disease. The lungs are otherwise clear. MEDIASTINUM: There are prominent retrocrural lymph nodes. These appear decreased in size and number from previous 2020 exam. Largest retrocrural lymph node is a right retrocrural lymph node measuring 8 mm in short axis compared to 2.8 cm September 2019 exam. There are small mediastinal lymph nodes decreased in size from September 2019 exam. No enlarged hilar or mediastinal lymph nodes are seen. The heart does not appear enlarged. There is coronary artery calcification. There is no pericardial effusion. PLEURA: There is no pleural effusion. No pleural mass or thickening. AXILLA: There are small bilateral axillary lymph nodes. Appear decreased in size and number from September 2019 exam. OSSEOUS STRUCTURES: There are degenerative changes of the spine. CT/CT chest w con IMPRESSION: Decreasing mediastinal retrocrural and bilateral axillary lymphadenopathy from 2020 exam. Mild increased peripheral interstitial markings and attenuation suggestive of mild diffuse initial lung disease. Coronary artery calcification. Fleischner guidelines were followed.
[2021-10-12] MEDS: Barium Sulfate Oral (Berry) 450 ML ORAL.SUSP 900 ML PO (10:35)
[2021-10-12] MEDS: iohexoL 350 MG/ML 100 ML INFUS..BTL IV (10:36)
== END 2021-10-12 07:52 | disposition home or self-care (01) ==
LOC: HO.CT 07:51
PROVIDERS: PCP Internal Medicine; Visit Provider Internal Medicine Medical Oncology
DX: C83.10 Mantle cell lymphoma, unspecified site (principal)
CPT/HCPCS: 71260; 74177; Q9967

== ENCOUNTER 2021-11-29 12:43 | Outpatient (REF) | payer MEDICARE, SELFPAY ==
[2021-11-29 15:09] LABS: PSA,Total (Free>4and<10) 13.37 ng/mL (0.00-4.00)
== END 2021-11-29 12:44 | disposition home or self-care (01) ==
LOC: HO.10HDL 12:43
PROVIDERS: Visit Provider Urology
DX: Z12.5 Encounter for screening for malignant neoplasm of prostate (principal); N40.1 Benign prostatic hyperplasia with lower urinary tract symptoms; N13.8 Other obstructive and reflux uropathy
CPT/HCPCS: 36415; 84153

== ENCOUNTER → 2021-12-08 11:32 | Outpatient (BNVA) | payer MEDICARE, SELFPAY | PROVIDERS: PCP Internal Medicine; Visit Provider Urology | DX: N31.9 Neuromuscular dysfunction of bladder, unspecified (principal) | CPT/HCPCS: 99212 ==

== ENCOUNTER → 2022-05-08 10:12 | Outpatient (BNVA) | payer MEDICARE, SELFPAY | PROVIDERS: PCP Internal Medicine; Visit Provider Urology | DX: Z13.89 Encounter for screening for other disorder (principal) ==

== ENCOUNTER 2022-05-30 11:32 | Outpatient (REF) | payer MEDICARE, SELFPAY ==
[2022-05-30 14:41] LABS: MANUAL DIFF FLAG NO
[2022-05-30 14:55] LABS: Basophils Absolute Auto 0.1 X10*3/uL (0.0-0.2); Basophils Percent Auto 0.8 % (0-2); Eosinophils Absolute Auto 0.1 X10*3/uL (0.0-0.4); Eosinophils Percent Auto 1.6 % (0-4); Imm Gran Abs Auto 0.03 X10*3/uL (0.00-0.03); Imm Gran Pct Auto 0.4 % (0.0-0.4); Lymphocytes Absolute Auto 1.5 X10*3/uL (1.2-4.9); Lymphocytes Percent Auto 20.4 % (20-40); Mean Corpuscular HGB Conc 31.6 g/dl (31.0-36.0); Mean Corpuscular Volume 98.2 fL (80.0-98.0); Mean Platelet Volume 11.4 fL (9.4-12.4); Monocytes Absolute Auto 0.7 X10*3/uL (0.1-1.2); Monocytes Percent Auto 8.7 % (2-11); Neutrophils Absolute Auto 5.1 x10*3/uL (2.0-8.3); Neutrophils Percent Auto 68.1 % (45-73); Platelet Count 304 X10*3/uL (160-400); Red Blood Count 3.87 X10*6/uL (4.60-5.80); White Blood Count 7.5 X10*3/uL (4.8-10.8)
[2022-05-30 15:18] LABS: Alanine Aminotransferase 20 U/L (0-40); Albumin Level 4.3 g/dL (3.5-5.0); Alkaline Phosphatase 63 U/L (39-117); Anion Gap 16 (12-20); Aspartate Amino Transferase 18 U/L (5-37); Bilirubin Total 0.5 mg/dL (0.0-1.0); Blood Urea Nitrogen 18 mg/dL (9-16); Calcium 9.6 mg/dL (8.4-10.2); Carbon Dioxide 23 mmol/L (22-29); Chloride 107 mmol/L (96-108); Estimated Glomerular Filt Rate > 60; Glucose Random 97 mg/dL (60-115); Iron 76 mcg/dL (45-160); Percent Iron Saturation 27 % (15-50); Sodium 142 mmol/L (135-145); Total Iron Binding Capacity 282 mcg/dL (228-428); Total Protein 6.8 g/dL (6.5-8.0); Unsaturated Iron Binding 206 ug/dL
[2022-05-30 15:20] LABS: Prostate Specific Antigen 18.04 ng/mL (<0.05-4.0)
== END 2022-05-30 11:33 | disposition home or self-care (01) ==
LOC: HO.10HDL 11:32
PROVIDERS: Absent Provider Internal Medicine; Visit Provider Urology
DX: Z12.5 Encounter for screening for malignant neoplasm of prostate (principal); N31.9 Neuromuscular dysfunction of bladder, unspecified; D64.9 Anemia, unspecified; I10 Essential (primary) hypertension
CPT/HCPCS: 36415; 80053; 83540; 84153; 85025

== ENCOUNTER → 2022-06-12 11:16 | Outpatient (BNVA) | payer MEDICARE, SELFPAY | PROVIDERS: PCP Internal Medicine; Visit Provider Urology | DX: N31.9 Neuromuscular dysfunction of bladder, unspecified (principal) | CPT/HCPCS: Q3014 ==

== ENCOUNTER 2022-06-22 10:59 | Outpatient (REF) | payer MEDICARE, SELFPAY ==
--- NOTE | ~2022-06-22 | MR_ITS ---
EXAMINATION: MRI ABDOMEN WITH AND WITHOUT CONTRAST CLINICAL INFORMATION: ADRENAL MASS SEEN ON CT COMPARISON: Prior studies including the 10/12/2021 CT scan TECHNIQUE: Multiple routine MRI sequences through the abdomen were obtained on a high-field 1.5Tesla MRI. Pre-and postcontrast images with 8 mL of Gadavist intravenous contrast were obtained. This included a dynamic contrast-enhanced technique. FINDINGS: Lung bases: The visualized lung bases are unremarkable. Prominent retrocrural lymphoid tissue is again seen similar to the CT scan. Liver: The liver is normal in size, shape, and signal. No suspicious focal hepatic lesions seen. Specifically no suspicious arterial phase enhancing lesions or suspicious washout of contrast on later phases. No biliary ductal dilatation. Gallbladder: Gallstones seen in the dependent aspect of the otherwise unremarkable gallbladder. No gallbladder wall thickening or pericholecystic inflammatory changes. Pancreas: Pancreas is homogeneous in signal. No pancreatic ductal dilatation or obstruction. No peripancreatic inflammatory changes or fluid. Spleen: Unremarkable Adrenals: 1.7 cm left adrenal nodule is again seen similar to the prior CT scan. 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 Contralateral right adrenal gland unremarkable. Kidneys: Kidneys are normal in size, shape, and signal. No suspicious renal mass lesion seen. No hydronephrosis or perinephric edema. Other: Degenerative changes in the spine. 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 This is not significantly changed in size from the prior 10/12/2021 CT scan and there is no abnormal FDG activity in this location on the prior 10/02/2019 PET/CT scan.
== END 2022-06-22 11:00 | disposition home or self-care (01) ==
LOC: HO.MRI 10:59
PROVIDERS: PCP Internal Medicine; Visit Provider Internal Medicine
DX: D35.00 Benign neoplasm of unspecified adrenal gland (principal)
CPT/HCPCS: 74183; A9585

== ENCOUNTER 2022-08-27 07:53 | Outpatient (REF) | payer MEDICARE, SELFPAY ==
--- NOTE | ~2022-08-27 | CT_ITS ---
EXAMINATION: CT CHEST WITH CONTRAST CLINICAL INFORMATION: Follow-up mantle cell lymphoma COMPARISON: Previous chest CT most recent October 2021 and PET/CT May 2021 TECHNIQUE: Multidetector volumetric CT imaging of the chest was obtained after the administration of 65 mL of Omnipaque 350 intravenous contrast without immediate adverse reactions. Axial MIP volume rendering provided. Sagittal and coronal reformatted images were obtained. This CT examination was performed using dose optimization techniques as appropriate, variously including the following: *Automated exposure control *Adjustment of mA and/or kV according to patient size (this includes techniques or standardized protocols for targeted exams where dose is matched to indication/reason for exam; i.e. extremities or head) *Use of iterative reconstruction technique DLP: 1 24 mGy-cm FINDINGS: LUNGS: Increased peripheral reticular markings in both lower lobes adjacent to prominent posterior ribs. Slight increase peripheral interstitial markings with interlobular septal thickening seen at the lung bases. Stable 2 mm peripheral or subpleural right lower lobe nodule axial image 82 series 5. MEDIASTINUM: Small stable mediastinal and bilateral hilar lymph nodes. There are prominent retrocaval lymph nodes. Largest retrocaval lymph node measuring 9 mm in short axis axial image 45 and axial image 50 series 3. There is surrounding fat stranding. This is similar to previous exam. Normal heart size. Moderate coronary artery calcification. No pericardial effusion. Right jugular port with tip projecting over the SVC. PLEURA: There is no pleural effusion. No pleural mass or thickening. AXILLA: Stable small bilateral axillary lymph nodes. No enlarged lymph nodes. UPPER ABDOMEN: Stable left adrenal nodule. Gallstone. OSSEOUS STRUCTURES: Degenerative changes of the spine. Old right rib fractures. CT/CT chest w IV con IMPRESSION: Stable chest CT exam from October 2021. Stable prominent retrocrural lymph nodes. Fleischner guidelines were followed.
[2022-08-27] MEDS: iohexoL 350 MG/ML 100 ML INFUS..BTL 65 ML IV (08:23)
== END 2022-08-27 07:54 | disposition home or self-care (01) ==
LOC: HO.CT 07:53
PROVIDERS: PCP Internal Medicine; Visit Provider Internal Medicine Medical Oncology
DX: C83.10 Mantle cell lymphoma, unspecified site (principal)
CPT/HCPCS: 71260; Q9967

== ENCOUNTER 2022-12-18 10:22 | Outpatient (AMB) | payer MEDICARE, SELFPAY ==
--- NOTE | 2022-12-18 10:29 | A.OFFVIS_ITS ---
Intake Intake Visit Reasons: 6m follow up Intake Note: Patient is present for Follow Up Urology Med: None Antibiotic Allergy: none Blood Thinner: None Pharmacy: [facility] Allergies No Known Allergies Allergy (Verified 12/18/22 10:30) Medication List - Last Reconciled 12/18/22 by Chano Turner MD ascorbic acid (vitamin C) 1 g PO DAILY 90 days ferrous sulfate (iron) 325 mg PO DAILY folic acid 1 mg PO DAILY lisinopril 10 mg PO DAILY multivitamin 1 tab PO DAILY simvastatin 80 mg PO BEDTIME zanubrutinib 320 mg (4 x 80 mg) PO DAILY HPI HPI Comments History of Present Illness Details Porfirio is a pleasant male. He is a patient of Dr. Irby. He seen for the following urologic conditions - neurogenic bladder PSA for him is in range Continues to manage with straight catheterization Remains on vitamin-C for suppression Has noticed some blood at catheterization Recommend trial of prostate medications Neurogenic bladder Managed with intermittent straight catheterization for over 10 years Minimal difficulties since prior evaluation Previous InterStim but failed InterStim management Has had elevated PSA running in the 10-11 range PSA 03/28 12, 11/27 13, 05/31 18, 11/28 13 Discussed elevated PSA Background mantle cell lymphoma with immunosuppression PFSH Medical History Mantle cell lymphoma Hx of pleural effusion Hyperlipidemia Hypertension Surgical History History of medial meniscus repair of right knee Family History Father Carotid artery stenosis Mother Kidney failure Social History Household Members: None Housing: House Are you a primary medicare compliance auditor to a significant other at home: No Do you presently have visiting nurse or other home services: No Alcohol intake: current Alcohol intake frequency: a few times a week Patient Tobacco Use Status: Former Tobacco user Advance Directives Date on File: 12/31/19 service: No Current occupational status: retired Review of Systems Const Denies chills and Denies fever(s) Card Reports no additional complaints and Denies syncope Resp Denies cough GI Denies abdominal pain and Denies heartburn Reports as per HPI and Denies change in libido Neuro Denies syncope Psych Denies change in libido Endo Denies change in libido Physical Exam Const General: cooperative, healthy appearing, comfortable and no acute distress Orientation/consciousness: patient oriented x3 HEENT Face and sinus: Yes normal facial exam Mouth: moist mucous membranes Neck Neck: Yes normal visual inspection, Yes full ROM and Yes trachea midline Chest Chest palpation & inspection: normal inspection of the chest Resp Effort & Inspection: normal respiratory effort, able to speak in complete sentences and no respiratory distress GI Inspection: Yes normal to inspection Back/Spine/Pelvis Cervical Spine: normal cervical lordosis Thoracic/Lumbar Spine: thoracic and lumbar spine normal to inspection Skin General skin exam: no rashes or lesions noted Neuro General: patient oriented x3, gait normal, tone normal and moves all extremities Extrem General: Yes normal to inspection and Yes capillary refill normal Assessment & Plan Assessment & Plan (1) BPH w urinary obs/LUTS: Code(s): N40.1 - Benign prostatic hyperplasia with lower urinary tract symptoms; N13.8 - Other obstructive and reflux uropathy (2) Hypotonic neurogenic bladder: Code(s): N31.9 - Neuromuscular dysfunction of bladder, unspecified (3) Elevated PSA: Code(s): R97.20 - Elevated prostate specific antigen [PSA] Plan Six month follow-up Orders: Orders Prostate Specific Antigen 6 Months R97.20 - Elevated prostate specific antigen [PSA] Medications: New finasteride 5 mg PO DAILY 90 days 90 tabs 1RF N13.8 - Other obstructive and reflux uropathy, N40.1 - Benign prostatic hyperplasia with lower urinary tract symptoms, R33.9 - Retention of urine, unspecified tamsulosin 0.4 mg PO BEDTIME 90 days 90 caps 1RF N13.8 - Other obstructive and reflux uropathy, N40.1 - Benign prostatic hyperplasia with lower urinary tract symptoms Patient Instructions: Imaging studies, laboratory and physical exam results were discussed and reviewed in detail. No major barriers to patient understanding were identified. An opportunity to ask questions regarding the treatment plan was provided. All questions were answered. The patient expressed understanding and agreement with the above treatment plan. The patient is aware they should contact our office by phone for worsening of their current condition or the appearance of new urologic symptoms. Compliance is encouraged with any medications and followup testing that is ordered. It is a privilege to participate in the urologic care of your patient. If you have any questions or concerns regarding treatment for the above conditions, or other urologic issues, please do not hesitate to contact me. The office telephone contact is [phone]. This note is constructed using voice recognition software. While every effort has been made to ensure accuracy sign painter apprentice errors may have been included. Yours sincerely, Dr Chano Turner MD, [facility] - Urology Providers of Expert, Compassionate Care for the Genitourinary System Coding Level of Care Code Est Pt Level 4 (92198) Diagnoses BPH w urinary obs/LUTS N40.1; N13.8 Hypotonic neurogenic bladder N31.9 Elevated PSA R97.20
== END 2022-12-18 10:55 | disposition home or self-care (01) ==
PROVIDERS: PCP Internal Medicine; Visit Provider Urology
DX: N40.1 Benign prostatic hyperplasia with lower urinary tract symptoms (principal); N13.8 Other obstructive and reflux uropathy; N31.9 Neuromuscular dysfunction of bladder, unspecified; R97.20 Elevated prostate specific antigen [PSA]
CPT/HCPCS: 99214

== ENCOUNTER → 2022-12-18 10:22 | Outpatient (BNVA) | payer MEDICARE, SELFPAY | PROVIDERS: Visit Provider Urology | DX: N31.9 Neuromuscular dysfunction of bladder, unspecified (principal); N40.1 Benign prostatic hyperplasia with lower urinary tract symptoms; N13.8 Other obstructive and reflux uropathy; R97.20 Elevated prostate specific antigen [PSA] | CPT/HCPCS: 99212 ==

== ENCOUNTER 2023-01-02 11:19 | Outpatient (REF) | payer MEDICARE, SELFPAY ==
[2023-01-02 13:38] LABS: Hematocrit 38.9 % (42.0-52.0); Hemoglobin 12.7 g/dl (14.0-18.0); Mean Corpuscular HGB Conc 32.6 g/dl (31.0-36.0); Mean Corpuscular Hemoglobin 31.4 pg (27.0-33.0); Platelet Count 227 X10*3/uL (160-400); Red Blood Count 4.05 X10*6/uL (4.60-5.80); Red Cell Distribution Width 12.8 % (11.0-16.0)
[2023-01-02 13:39] LABS: WBC ABN SCTR FOR CBC 1
[2023-01-02 14:04] LABS: Alanine Aminotransferase 20 U/L (0-40); Albumin Level 4.3 g/dL (3.5-5.0); Alkaline Phosphatase 70 U/L (39-117); Anion Gap 14 (12-20); Aspartate Amino Transferase 20 U/L (5-37); Bilirubin Total 0.4 mg/dL (0.0-1.0); Blood Urea Nitrogen 20 mg/dL (9-16); Calcium 9.5 mg/dL (8.4-10.2); Carbon Dioxide 26 mmol/L (22-29); Chloride 108 mmol/L (96-108); Cholesterol 138 mg/dL (<200); Estimated Glomerular Filt Rate > 60; Glucose Fasting 117 mg/dL (60-99); HDL Cholesterol 42 mg/dL (>40); LDL Cholesterol Calculated 86 mg/dL (<100); Potassium 5.1 mmol/L (3.3-5.1); Sodium 143 mmol/L (135-145); Triglycerides 54 mg/dL (<150)
[2023-01-02 14:18] LABS: Band Neutrophils Percent 0 % (3-5); Eosinophils Percent Manual 1 % (0-4); Lymphocytes Percent Manual 17 % (20-40); Monocytes Percent Manual 8 % (2-11); Neutrophils Percent Manual 74 % (45-73)
[2023-01-02 14:21] LABS: RBC Morphology NORMAL
[2023-01-02 14:22] LABS: Platelet Estimate NORMAL (NORMAL); Platelet Morphology Comment NORMAL
[2023-01-02 14:23] LABS: Eosinophils Absolute Manual 0.1 X10*3/uL (0.0-0.4); Lymphocytes Absolute Manual 1.7 X10*3/uL (1.2-4.9); Monocytes Absolute Manual 0.8 X10*3/uL (0.1-1.2); Neutrophils Absolute Manual 7.5 X10*3/uL (2.0-8.3); White Blood Count 10.1 X10*3/uL (4.8-10.8)
== END 2023-01-02 11:20 | disposition home or self-care (01) ==
LOC: HO.10HDL 11:19
PROVIDERS: Visit Provider Internal Medicine
DX: I10 Essential (primary) hypertension (principal); E78.00 Pure hypercholesterolemia, unspecified; N40.0 Benign prostatic hyperplasia without lower urinary tract symptoms
CPT/HCPCS: 36415; 80053; 80061; 85007; 85027

== ENCOUNTER 2023-03-07 15:44 | Outpatient (REF) | payer MEDICARE, SELFPAY ==
--- NOTE | ~2023-03-07 | CT_ITS ---
EXAMINATION: CT CHEST WITH CONTRAST CLINICAL INFORMATION: Staging of mantle cell lymphoma COMPARISON: 08/27/2022 and 10/12/2021 CT abdomen and pelvis TECHNIQUE: Multidetector volumetric CT imaging of the chest was obtained after the administration of 65 mL of Omnipaque 350 intravenous contrast without immediate adverse reactions. Axial MIP volume rendering provided. Sagittal and coronal reformatted images were obtained. This CT examination was performed using dose optimization techniques as appropriate, variously including the following: *Automated exposure control *Adjustment of mA and/or kV according to patient size (this includes techniques or standardized protocols for targeted exams where dose is matched to indication/reason for exam; i.e. extremities or head) *Use of iterative reconstruction technique DLP: 180 mGy-cm FINDINGS: L TACKER: Unremarkable. There is Port-A-Cath present on the right LUNGS: The lungs are clear with no evidence of inflammation or nodules. MEDIASTINUM: There is stable small mediastinal and small hilar lymph nodes present without interval change. There is stable retrocrural lymph nodes up to 1.5 cm seen on image 48 series 3. Coronary artery calcifications present PLEURA: There is no pleural effusion. No pleural mass or thickening. AXILLA: Small axillary lymph nodes seen bilaterally, slightly growing since previous study. UPPER ABDOMEN: There is stable left adrenal gland adenoma OSSEOUS STRUCTURES: Unremarkable. CT/CT chest w IV con IMPRESSION: 1. No interval change in small mediastinal and hilar lymph nodes and retrocrural lymph nodes. 2. Stable left adrenal gland adenoma. 3. Coronary artery calcifications. Fleischner guidelines were followed.
[2023-03-07] MEDS: iohexoL 350 MG/ML 100 ML INFUS..BTL IV (16:21)
== END 2023-03-07 15:45 | disposition home or self-care (01) ==
LOC: HO.CT 15:44
PROVIDERS: PCP Internal Medicine; Visit Provider Internal Medicine Medical Oncology
DX: C83.10 Mantle cell lymphoma, unspecified site (principal)
CPT/HCPCS: 71260; Q9967

== ENCOUNTER 2023-04-23 14:38 | Outpatient (REF) | payer MEDICARE, SELFPAY | END 2023-04-23 14:39 | disposition home or self-care (01) | LOC: HO.SH 14:38 | PROVIDERS: Visit Provider Internal Medicine | DX: Z01.118 Encounter for examination of ears and hearing with other abnormal findings (principal); H90.3 Sensorineural hearing loss, bilateral | CPT/HCPCS: 92557; 92567 ==

== ENCOUNTER 2023-06-06 11:30 | Outpatient (REF) | payer MEDICARE, SELFPAY ==
[2023-06-06 13:25] LABS: Estimated Average Glucose 111 mg/dL; Hemoglobin A1c % 5.5 % (<6.0)
[2023-06-06 13:41] LABS: Alanine Aminotransferase 43 U/L (0-40); Albumin Level 4.3 g/dL (3.5-5.0); Alkaline Phosphatase 107 U/L (39-117); Anion Gap 15 (12-20); Aspartate Amino Transferase 34 U/L (5-37); Bilirubin Total 0.4 mg/dL (0.0-1.0); Blood Urea Nitrogen 19 mg/dL (9-16); Calcium 9.7 mg/dL (8.4-10.2); Carbon Dioxide 26 mmol/L (22-29); Chloride 106 mmol/L (96-108); Estimated Glomerular Filt Rate > 60; Glucose Random 114 mg/dL (60-115); Potassium 4.7 mmol/L (3.3-5.1); Sodium 142 mmol/L (135-145); Total Protein 7.3 g/dL (6.5-8.0)
[2023-06-06 13:59] LABS: Prostate Specific Antigen 6.29 ng/mL (<0.05-4.0)
== END 2023-06-06 11:31 | disposition home or self-care (01) ==
LOC: HO.10HDL 11:30
PROVIDERS: Urology; Visit Provider Internal Medicine
DX: R97.20 Elevated prostate specific antigen [PSA] (principal); I10 Essential (primary) hypertension; D64.9 Anemia, unspecified; R73.03 Prediabetes; Z12.5 Encounter for screening for malignant neoplasm of prostate
CPT/HCPCS: 36415; 80053; 83036; 84153

== ENCOUNTER 2023-06-18 10:51 | Outpatient (AMB) | payer MEDICARE, SELFPAY ==
--- NOTE | 2023-06-18 10:51 | A.OFFVIS_ITS ---
Intake Intake Visit Reasons: 6M PSA/Med Review(set)confirmed Intake Note: Patient presents today for a telehealth follow-up Meds- Finasteride, Tamsulosin Allergies to Antibiotic- No Known Antibiotics Blood Thinner- None Accompanied by: Self / Same As Patient Allergies No Known Allergies Allergy (Verified 06/18/23 10:53) HPI HPI Comments History of Present Illness Details Porfirio is a pleasant male. He is a patient of Dr. Irby. He seen for the following urologic conditions - neurogenic bladder Telemedicine Evaluation 15 min Consultation [facility] Sushant Video attempted Significant PSA drop after being on finasteride Continues to manage with straight catheterization - 5-6 times per day Remains on vitamin-C for suppression He would like to continue Six-month follow-up lab work Neurogenic bladder Managed with intermittent straight catheterization for over 10 years Minimal difficulties since prior evaluation Previous InterStim but failed InterStim management Has had elevated PSA running in the 10-11 range PSA 03/28 12, 11/27 13, 05/31 18, 11/28 13, 06/01 6.3 Discussed elevated PSA Background mantle cell lymphoma with immunosuppression [facility] Medical History Cataract, right eye Mantle cell lymphoma Hx of pleural effusion Hyperlipidemia Hypertension Surgical History History of medial meniscus repair of right knee Family History Father Carotid artery stenosis Mother Kidney failure Social History Household Members: None Housing: House Are you a primary spiritual care coordinator to a significant other at home: No Do you presently have visiting nurse or other home services: No Alcohol intake: current Alcohol intake frequency: a few times a week Patient Tobacco Use Status: Former Tobacco user Advance Directives Date on File: 12/31/19 service: No Current occupational status: retired Review of Systems Const All systems reviewed & are unremarkable except as noted in HPI and below Reports no additional complaints Resp Reports no additional complaints GI Reports no additional complaints Reports as per HPI Musc Reports no additional complaints Physical Exam Telemedicine evaluation Appropriate responses Regular breathing rate and rhythm HEENT Head: Yes normal to inspection Ears: hearing grossly normal bilaterally Eyes General: appearance normal, both eyes and all related structures Neck Neck: Yes normal visual inspection Chest Chest palpation & inspection: normal inspection of the chest Resp Effort & Inspection: normal respiratory effort and able to speak in complete sentences Assessment & Plan Assessment & Plan (1) Elevated PSA: Code(s): R97.20 - Elevated prostate specific antigen [PSA] (2) BPH w urinary obs/LUTS: Code(s): N40.1 - Benign prostatic hyperplasia with lower urinary tract symptoms; N13.8 - Other obstructive and reflux uropathy (3) Hypotonic neurogenic bladder: Code(s): N31.9 - Neuromuscular dysfunction of bladder, unspecified Plan Six-month follow-up by work Orders: Orders PSA,Total (Free>4and<10) 6 Months R97.20 - Elevated prostate specific antigen [PSA] Patient Instructions: Imaging studies, laboratory and physical exam results were discussed and reviewed in detail. No major barriers to patient understanding were identified. An opportunity to ask questions regarding the treatment plan was provided. All questions were answered. The patient expressed understanding and agreement with the above treatment plan. The patient is aware they should contact our office by phone for worsening of their current condition or the appearance of new urologic symptoms. Compliance is encouraged with any medications and followup testing that is ordered. It is a privilege to participate in the urologic care of your patient. If you have any questions or concerns regarding treatment for the above conditions, or other urologic issues, please do not hesitate to contact me. The office telephone contact is [phone]. This note is constructed using voice recognition software. While every effort has been made to ensure accuracy hospice director errors may have been included. Yours sincerely, Dr Chano Turner MD, [facility] - Urology Providers of Expert, Compassionate Care for the Genitourinary System Telehealth Telehealth Location of provider rendering services: practice address Location of patient: address on file Patient Identification confirmed using: Name, : Yes Telehealth method: video Patient verbally consented to treatment: Yes Patient verbally consented to billing insurance company: Yes Patient informed of any privacy concerns related to visit: Yes Coding Level of Care Code Tele Est Pt Level 3 (11782) Diagnoses Elevated PSA R97.20 BPH w urinary obs/LUTS N40.1; N13.8 Hypotonic neurogenic bladder N31.9
== END 2023-06-18 12:00 | disposition home or self-care (01) ==
LOC: HO.HUSH 10:51
PROVIDERS: PCP Internal Medicine; Visit Provider Urology
DX: R97.20 Elevated prostate specific antigen [PSA] (principal); N40.1 Benign prostatic hyperplasia with lower urinary tract symptoms; N13.8 Other obstructive and reflux uropathy; N31.9 Neuromuscular dysfunction of bladder, unspecified
CPT/HCPCS: 99213

== ENCOUNTER → 2023-06-18 10:51 | Outpatient (BNVA) | payer MEDICARE, SELFPAY | PROVIDERS: PCP Internal Medicine; Visit Provider Urology ==

== ENCOUNTER 2023-08-12 13:31 | Outpatient (REF) | payer MEDICARE, SELFPAY ==
--- NOTE | ~2023-08-12 | CT_ITS ---
EXAMINATION: CT CHEST ABDOMEN AND PELVIS WITH CONTRAST CLINICAL INFORMATION: Mantle cell lymphoma COMPARISON: 03/07/2023 and 10/12/2021 CTs, 06/22/2022 abdomen MRI and 05/11/2021 PET/CT reports. TECHNIQUE: Multidetector volumetric images were obtained through the chest, abdomen and pelvis following administration 85 mL of Omnipaque 350 intravenous contrast. Sagittal and coronal reformatted images were obtained on the technologist's workstation. Chest MIP images also generated. Oral contrast: No This CT examination was performed using dose optimization techniques as appropriate, variously including the following: *Automated exposure control *Adjustment of mA and/or kV according to patient size (this includes techniques or standardized protocols for targeted exams where dose is matched to indication/reason for exam; i.e. extremities or head) *Use of iterative reconstruction technique DLP: 151 and 403 mGy-cm, chest and abdomen/pelvis respectively FINDINGS: [employer]: Clear lungs. Protuberant abdomen. Degenerative changes. CHEST: Airways and lungs: Trachea and bronchi are patent. Scattered bilateral subpleural mild increased reticular markings right upper, right lower and left lower lobes and lingula. No change posteromedial bilateral upper lobe compressive atelectasis adjacent to expansile right 6th and left seventh posterior medial ribs. Nodules: RUL: Enlarging 6 mm subpleural, 6:170. RLL: Clustered nodules, currently measuring 6 mm and 3 mm on 6:304, 5 mm on 6:305, 4 mm on 6:314, not significantly changed from 03/07/2023 but increased from 10/12/2021 Mediastinum: Unremarkable thyroid. Enlarging mediastinal lymph nodes including subcarinal lymph nodes largest measuring 9 mm in short axis. Inferiorly, 8 mm paraesophageal lymph node has also increased in size, 5:247. In the lower mediastinum/retrocrural region, increasing right paraesophageal mass/confluence of lymph nodes now measures 2.5 x 3.5 cm and enlarging left para-aortic lymph node measures 1.1 x 0.9 cm. Heart and great vessels: Nonenlarged heart. No pericardial effusion. Degree of coronary calcifications: Moderate. Nonaneurysmal aorta with atherosclerotic calcifications in patency of the branch vessels. Nonenlarged pulmonary arteries with no central filling defects seen. Chest wall and axilla: Tunneled right internal jugular chest port with internal tip in the superior vena cava. Enlarging bilateral axillary lymph nodes cortical thickening, largest on the left measuring 5 cm. ABDOMEN AND PELVIS: Hepatobiliary: Enlarged mildly hypodense liver. No mass lesion, intra or extrahepatic biliary ductal dilatation. 2.2 cm calcified gallstone, otherwise gallbladder is unremarkable with appearance. Spleen has enlarged, now measuring 15.2 cm. Adrenal glands. Unremarkable right adrenal gland. Unchanged 1.7 cm left adrenal lesion, previously characterized as a lipid rich adenoma. Pancreas: Unremarkable. Gastrointestinal: Small hiatal hernia. Debris and contrast filled and unremarkable stomach. Nonobstructive bowel pattern. Unremarkable terminal ileum. Mild fecal retention. Diverticulosis without diverticulitis. Kidneys, ureters, bladder and pelvic organs: Symmetrically perfused, kidneys are normal in size, shape and position. Nonspecific perinephric stranding. Bilateral hydroureter, on the right measuring 1.5 cm. Distal right ureter appears thickened chest proximal to the UVJ. Urinary bladder is decompressed with asymmetric posterior wall thickening, right greater than left. Prostate remains significantly enlarged and heterogeneous causing impression on the inferior aspect of the urinary bladder. Vascular: Atherosclerotic calcifications nonaneurysmal aorta and iliac arteries. Normal caliber inferior vena cava. Unremarkable iliac veins. Patent portal system. Lymph nodes: Increasing the prominence precaval lymph node now measuring 1.5 cm, 3:21. Multiple enlarging retrocardiac lymph nodes, for example, anterior to the inferior vena cava measuring 1.4 cm. Nonpathologically enlarged mesenteric lymph nodes are more prominent in size. No change 1.2 cm left iliac lymph node. Slight increase in size 9 mm right iliac lymph node. Increasing bilateral groin lymphadenopathy Abdominal wall: Moderate sized fat filled umbilical hernia. Small fat filled inguinal hernias. BONES AND SOFT TISSUES: Stable sixth right and left seventh posterior medial expansile appearing ribs. No definite associated lytic or blastic lesions. Old fifth right lateral rib fracture. Degenerative changes. Mild mid dorsal compression deformities. Minimal anterolisthesis L5 on S1. Vacuum disc phenomena L4-L5 and L5-S1. No suspicious osseous lesions. CT/CT abdomen pelvis w IV con IMPRESSION: Increasing mediastinal, retrocrural, axillary, intra-abdominal, retroperitoneal, and inguinal lymphadenopathy. Enlarging and stable right lower lobe pulmonary nodules. Enlarging spleen. Redemonstration heterogeneous prostate, bladder wall thickening and bilateral hydroureter. Hepatic steatosis. Cholelithiasis. Diverticulosis without diverticulitis. Stable left adrenal adenoma.
[2023-08-12] MEDS: iohexoL 350 MG/ML 75 ML INFUS..BTL 85 ML IV (15:56)
[2023-08-12] MEDS: Barium Sulfate Oral (Berry) 450 ML ORAL.SUSP 900 ML PO (15:56)
== END 2023-08-12 13:32 | disposition home or self-care (01) ==
LOC: HO.CT 13:31
PROVIDERS: PCP Internal Medicine; Visit Provider Internal Medicine Medical Oncology
DX: C83.10 Mantle cell lymphoma, unspecified site (principal)
CPT/HCPCS: 71260; 74177; Q9967

== ENCOUNTER 2023-12-11 12:30 | Outpatient (REF) | payer MEDICARE, SELFPAY ==
[2023-12-11 14:13] LABS: PSA,Total (Free>4and<10) 3.05 ng/mL (0.00-4.00)
== END 2023-12-11 12:31 | disposition home or self-care (01) ==
LOC: HO.10HDL 12:30
PROVIDERS: Visit Provider Urology
DX: Z12.5 Encounter for screening for malignant neoplasm of prostate (principal); R97.20 Elevated prostate specific antigen [PSA]
CPT/HCPCS: 36415; 84153

== ENCOUNTER 2023-12-18 10:18 | Outpatient (AMB) | payer MEDICARE, SELFPAY ==
--- NOTE | 2023-12-18 10:56 | MHC.OFFVIS ---
Intake Visit Reasons: 6M Follow Up-PSA(set) Intake Note: Patient is present for PSA Follow up Urology Med: Finasteride, Vitamin C, [place] Allergies No Known Allergies Allergy (Verified 11/04/23 11:09) HPI Comments Details: Porfirio is a pleasant male. He is a patient of Dr. Irby. He seen for the following urologic conditions - neurogenic bladder Significant PSA drop after being on finasteride continues - cut back to Saturday, Saturday, Saturday Continues to manage with straight catheterization - 5-6 times per day Remains on vitamin-C for suppression He would like to continue Six-month follow-up lab work Neurogenic bladder Managed with intermittent straight catheterization for over 10 years Porfirio is expected to be dependent on straight catheterization for bladder emptying for the foreseeable future Minimal difficulties since prior evaluation Previous InterStim but failed InterStim management Has had elevated PSA running in the 10-11 range PSA 03/28 12, 11/27 13, 05/31 18, 11/28 13, 06/01 6.3 Discussed elevated PSA Background mantle cell lymphoma with immunosuppression PFSH Medical History Cataract, right eye Mantle cell lymphoma Hx of pleural effusion Hyperlipidemia Hypertension Surgical History History of medial meniscus repair of right knee Family History Father Carotid artery stenosis Mother Kidney failure Social History Household Members: None Housing: House Are you a primary healthcare or medical to a significant other at home: No Do you presently have visiting nurse or other home services: No Alcohol intake: current Alcohol intake frequency: a few times a week Patient Tobacco Use Status: Former Tobacco user Advance Directives Date on File: 12/31/19 service: No Current occupational status: retired Review of Systems Const Denies chills and Denies fever(s) Card Reports no additional complaints and Denies syncope Resp Denies cough GI Denies abdominal pain and Denies heartburn Reports as per HPI and Denies change in libido Neuro Denies syncope Psych Denies change in libido Endo Denies change in libido Physical Exam Const General: cooperative, healthy appearing, comfortable and no acute distress Orientation/consciousness: patient oriented x3 HEENT Face and sinus: Yes normal facial exam Mouth: moist mucous membranes Neck Neck: Yes normal visual inspection, Yes full ROM and Yes trachea midline Chest Chest palpation & inspection: normal inspection of the chest Resp Effort & Inspection: normal respiratory effort, able to speak in complete sentences and no respiratory distress GI Inspection: Yes normal to inspection Back/Spine/Pelvis Cervical Spine: normal cervical lordosis Thoracic/Lumbar Spine: thoracic and lumbar spine normal to inspection Skin General skin exam: no rashes or lesions noted Neuro General: patient oriented x3, gait normal, tone normal and moves all extremities Extrem General: Yes normal to inspection and Yes capillary refill normal Assessment & Plan Assessment & Plan (1) BPH w urinary obs/LUTS: Code(s): N40.1 - Benign prostatic hyperplasia with lower urinary tract symptoms; N13.8 - Other obstructive and reflux uropathy Category: Medical (2) Hypotonic neurogenic bladder: Code(s): N31.9 - Neuromuscular dysfunction of bladder, unspecified Category: Medical Plan Six-month follow-up Orders: Orders Prostate Specific Antigen 6 Months R97.20 - Elevated prostate specific antigen [PSA] Patient Instructions: Imaging studies, laboratory and physical exam results were discussed and reviewed in detail. No major barriers to patient understanding were identified. An opportunity to ask questions regarding the treatment plan was provided. All questions were answered. The patient expressed understanding and agreement with the above treatment plan. The patient is aware they should contact our office by phone for worsening of their current condition or the appearance of new urologic symptoms. Compliance is encouraged with any medications and followup testing that is ordered. It is a privilege to participate in the urologic care of your patient. If you have any questions or concerns regarding treatment for the above conditions, or other urologic issues, please do not hesitate to contact me. The office telephone contact is [phone]. This note is constructed using voice recognition software. While every effort has been made to ensure accuracy sustainability specialist errors may have been included. Yours sincerely, Dr Chano Turner MD, [facility] - Urology Providers of Expert, Compassionate Care for the Genitourinary System Coding Level of Care Code Est Pt Level 3 (36481) Diagnoses BPH w urinary obs/LUTS N40.1; N13.8 Hypotonic neurogenic bladder N31.9
== END 2023-12-18 11:03 | disposition home or self-care (01) ==
PROVIDERS: PCP Internal Medicine; Visit Provider Urology
DX: N40.1 Benign prostatic hyperplasia with lower urinary tract symptoms (principal); N13.8 Other obstructive and reflux uropathy; N31.9 Neuromuscular dysfunction of bladder, unspecified
CPT/HCPCS: 99213

== ENCOUNTER → 2023-12-18 10:18 | Outpatient (BNVA) | payer MEDICARE, SELFPAY | PROVIDERS: PCP Internal Medicine; Visit Provider Urology | DX: N40.1 Benign prostatic hyperplasia with lower urinary tract symptoms (principal); N13.8 Other obstructive and reflux uropathy; N31.9 Neuromuscular dysfunction of bladder, unspecified | CPT/HCPCS: 99212 ==

== ENCOUNTER 2024-01-10 11:56 | Outpatient (REF) | payer MEDICARE, SELFPAY ==
--- NOTE | ~2024-01-10 | US_ITS ---
EXAMINATION: US TRIPLEX LOWER EXTREMITY, BILATERAL CLINICAL INFORMATION: Bilateral lower extremity edema COMPARISON: CT abdomen and pelvis August 12, 2023 TECHNIQUE: Color-flow triplex imaging with spectral analysis and compression Doppler were performed on the bilateral lower extremities. FINDINGS: Respiratory variation, normal compression and augmented flow are noted throughout the bilateral lower extremities. The visualized common femoral vein, superficial femoral vein, profunda femoral vein, popliteal vein and midcalf peroneal and posterior tibial venous segments show no evidence of deep venous thrombosis bilaterally. Enlarged inguinal lymph nodes measuring 3.6 cm on the right and 4.3 cm on the left, consistent with history of lymphoma. US/US venous duplex LE BI IMPRESSION: No evidence of deep venous thrombosis involving the bilateral lower extremities. Electronically signed by: Kip Paez MD 01/10/2024 12:59 PM EDT
== END 2024-01-10 11:57 | disposition home or self-care (01) ==
LOC: HO.US 11:56
PROVIDERS: PCP Internal Medicine; Visit Provider Internal Medicine Medical Oncology
DX: M79.89 Other specified soft tissue disorders (principal); R60.0 Localized edema; I82.811 Embolism and thrombosis of superficial veins of right lower extremity; I82.812 Embolism and thrombosis of superficial veins of left lower extremity
CPT/HCPCS: 93970

== ENCOUNTER 2024-01-15 12:50 | Outpatient (REF) | payer MEDICARE, SELFPAY ==
--- NOTE | ~2024-01-15 | CT_ITS ---
EXAMINATION: CT CHEST, ABDOMEN AND PELVIS WITH CONTRAST. CLINICAL INFORMATION: History of mantle cell lymphoma. COMPARISON: CT chest, abdomen and pelvis 08/12/2023. TECHNIQUE: Multidetector volumetric imaging was performed from the thoracic inlet through the pubic symphysis following administration of 85 mL Omnipaque 350 intravenous contrast. Sagittal and coronal reformatted images were obtained on the technologist's workstation. This CT examination was performed using dose optimization techniques as appropriate, variously including the following: *Automated exposure control *Adjustment of mA and/or kV according to patient size (this includes techniques or standardized protocols for targeted exams where dose is matched to indication/reason for exam; i.e. extremities or head) *Use of iterative reconstruction technique DLP: 457 mGy-cm FINDINGS: CHEST: Lung and Pleura: New small bilateral pleural effusions with small bibasilar consolidative opacities. Mildly increased pleural-based thickening, reticulation and ground-glass attenuation along the posterior surface of both lungs and mediastinal surface of the right lung. New faint scattered ground-glass parenchymal densities, for example left lower lobe (7:270) and right middle lobe (7:344). New focal branching structure in the posterior right lower lobe (7:284) suggesting area of mucus impaction. Small calcified granulomas. Mediastinum: Increased mediastinal lymphadenopathy, for example 2.7 x 1.4 cm precarinal lymph node (3:22) previously 1.7 x 1 cm and 2.4 x 1.5 cm subcarinal lymph node (3:29) previously 1.6 x 0.9 cm. Stable cardiomegaly. Multivessel coronary artery calcifications are present. Normal appearance of the thyroid gland. Chest Wall/Axilla: Increased bilateral axillary lymphadenopathy, for example a 3.3 x 2.3 cm left axillary lymph node (3:12) previously 2 x 1 cm and a 1.7 x 1.2 cm right inferior axillary lymph node (3:27) previously 0.7 x 0.6 cm. There is also increased lower cervical and internal mammary lymphadenopathy. A few soft tissue nodules in the lateral aspect of both breasts are increased in size, for example measuring 0.8 cm on the left side (3:22) previously 0.5 cm and more inferiorly on the left measuring 1 cm (3:26) previously 0.7 cm. Right-sided chest port tip terminates at the level of the superior cavoatrial junction. ABDOMEN/PELVIS: Liver, Gallbladder, Biliary Tree: Increased hepatomegaly measuring 22 cm craniocaudally, previously 17.8 cm. No discrete focal liver mass. No biliary ductal dilatation. Cholelithiasis without significant pericholecystic inflammatory changes to suspect acute cholecystitis. Pancreas: Markedly increased peripancreatic lymphadenopathy limiting delineation of the parenchyma. No main ductal dilatation. Spleen: Increased severe splenomegaly measuring 20.6 cm craniocaudally, previously 18 cm. Multiple new ill-defined hypodense parenchymal regions that could represent a combination of perfusional abnormalities, infarctions and lesions. Adrenal Glands: Unchanged 2 cm left adrenal nodule. Kidneys and Ureters: The kidneys are normal in size, shape, and attenuation. No hydronephrosis, hydroureter, or calculi seen. No perinephric stranding. Bladder: Stable diffuse urinary bladder wall thickening. Gastrointestinal Tract: Oral contrast opacifies the small bowel and colon reaching the rectum without evidence of obstruction. New small volume of ascites. Multiple new peritoneal nodules, for example measuring 2.6 x 1.5 cm anterior to the stomach (3:27). Abdominal Wall: Stable fat-containing umbilical hernia measuring up to 4.3 cm (3:49). Lymphovascular Structures: Significantly increased multicompartment abdominopelvic and inguinal lymphadenopathy, for example a lower retroperitoneal confluent migue mass measuring 6.3 x 3.7 cm (3:40), a 4.2 x 3 cm retrocrural mass (3:6), an elongated mesenteric mass measuring approximately 3.6 x 2.2 cm on axial plane (3:44) and 6.7 cm craniocaudally (4:42) and a mixed density left external iliac migue mass measuring 5.2 x 2.5 cm (3:55) with internal coarse hyperdensities, possibly calcifications. Increased retroperitoneal, mesenteric and presacral fat stranding. Pelvic Viscera: Enlarged prostate protruding into the bladder base, similar to prior. New small amount of free fluid in the pelvis. OSSEOUS STRUCTURES: No acute or aggressive osseous findings. Stable right-sided rib fractures. Multifocal degenerative changes. CT/CT abdomen pelvis w IV con IMPRESSION: 1. Significantly increased multicompartment lymphadenopathy in the neck, chest, abdomen, pelvis, and inguinal regions. 2. Increased hepatosplenomegaly with multiple new amorphous low density regions in the spleen suspicious for a combination of lymphoproliferative malignant involvement, perfusional abnormalities and splenic infarctions. 3. Soft tissue nodules in the breast and peritoneum most consistent with extension of lymphomatous involvement. 4. New bilateral pleural effusions and ascites that could be malignant or related with third spacing/volume overload. 5. New bibasilar consolidative opacities could represent compressive atelectasis or infectious/inflammatory. Increased pleural-base thickening, reticulation and ground-glass attenuation in both lungs is nonspecific and could be infectious/inflammatory. Similarly, a few new faint ground-glass densities in both lungs could be infectious/inflammatory. Nevertheless, extension of the lymphoproliferative malignancy is not excluded. Recommend clinical correlation and attention on followup. 6. Stable severe prostatomegaly and unchanged diffuse urinary bladder wall thickening. The report will be called to the ordering clinician by a [facility] [employer]. Electronically signed by: Enid Dominguez MD 01/16/2024 12:08 PM EDT
[2024-01-15] MEDS: Barium Sulfate Oral (Vanilla) 450 ML ORAL.SUSP 900 ML PO (15:26)
[2024-01-15] MEDS: iohexoL 350 MG/ML 75 ML INFUS..BTL 85 ML IV (15:26)
== END 2024-01-15 12:51 | disposition home or self-care (01) ==
LOC: HO.CT 12:50
PROVIDERS: PCP Internal Medicine; Visit Provider Internal Medicine Medical Oncology
DX: C83.10 Mantle cell lymphoma, unspecified site (principal)
CPT/HCPCS: 71260; 74177; Q9967

== ENCOUNTER 2024-01-27 10:00 | Outpatient (RCR) | payer MEDICARE, SELFPAY ==
[2020-01-07 11:30] VITALS: BMI 27.3
[2020-01-07 11:31] VITALS: BP 155/72; PULSE 72; RESP 18; TEMP 36.6; O2SAT 99
[2020-01-07 12:16] LABS: Hematocrit 33.1 % (42-52); Hemoglobin 10.8 g/dl (14.0-18.0); Mean Corpuscular HGB Conc 32.6 g/dl (31.0-36.0); Mean Corpuscular Hemoglobin 31.7 pg (27.0-33.0); Mean Corpuscular Volume 97.1 fL (80-98); Mean Platelet Volume 9.8 fL (9.4-12.4); Platelet Count 258 X10*3/uL (160-400); Red Blood Count 3.41 X10*6/uL (4.60-5.80); Red Cell Distribution Width 16.4 % (11.0-16.0); White Blood Count 9.1 X10*3/uL (4.8-10.8)
[2020-01-07 12:51] LABS: Alanine Aminotransferase 14 U/L (0-40); Albumin Level 3.9 g/dL (3.5-5.0); Alkaline Phosphatase 102 U/L (39-117); Anion Gap 11 (12-20); Aspartate Amino Transferase 13 U/L (5-37); Bilirubin Total 0.2 mg/dL (0.0-1.0); Blood Urea Nitrogen 17 mg/dL (9-16); Calcium 9.1 mg/dL (8.4-10.2); Carbon Dioxide 27 mmol/L (22-29); Chloride 104 mmol/L (96-108); Creatinine Clr Calc Pharmacy 98.6; Estimated Glomerular Filt Rate > 60; Glucose Random 95 mg/dL (60-115); Potassium 4.2 mmol/l (3.3-5.1); Sodium 138 mmol/L (135-145)
[2020-01-07 12:58] LABS: Neutrophils Percent Manual 68 % (45-73)
[2020-01-07 12:59] LABS: Band Neutrophils Percent 13 % (3-5); Lymphocytes Absolute Manual 0.9 X10*3/uL (0.6-4.8); Lymphocytes Percent Manual 10 % (20-40); Monocytes Absolute Manual 0.8 X10*3/uL (0.0-1.2); Monocytes Percent Manual 9 % (2-11); Neutrophils Absolute Manual 7.4 X10*3/uL (2.2-7.9)
[2020-01-07 13:00] LABS: Hypochromasia 1+; Platelet Morphology Comment NORMAL
[2020-01-07 14:25] LABS: Platelet Estimate NORMAL (NORMAL)
[2020-01-07 14:27] LABS: RBC Morphology NORMAL
[2020-01-14 10:44] VITALS: BP 155/74; PULSE 74; RESP 18; TEMP 36.6; O2SAT 99; BMI 27.3
[2020-01-14 11:40] LABS: Hematocrit 37.3 % (42-52); Hemoglobin 12.2 g/dl (14.0-18.0); Mean Corpuscular HGB Conc 32.7 g/dl (31.0-36.0); Mean Corpuscular Hemoglobin 31.8 pg (27.0-33.0); Mean Corpuscular Volume 97.1 fL (80-98); Mean Platelet Volume 9.3 fL (9.4-12.4); Platelet Count 273 X10*3/uL (160-400); Red Blood Count 3.84 X10*6/uL (4.60-5.80); Red Cell Distribution Width 16.2 % (11.0-16.0); White Blood Count 18.1 X10*3/uL (4.8-10.8)
[2020-01-14 11:51] LABS: Alanine Aminotransferase 15 U/L (0-40); Albumin Level 4.1 g/dL (3.5-5.0); Alkaline Phosphatase 111 U/L (39-117); Anion Gap 14 (12-20); Aspartate Amino Transferase 18 U/L (5-37); Bilirubin Total 0.3 mg/dL (0.0-1.0); Blood Urea Nitrogen 18 mg/dL (9-16); Carbon Dioxide 24 mmol/L (22-29); Chloride 104 mmol/L (96-108); Creatinine Clr Calc Pharmacy 90.5; Estimated Glomerular Filt Rate > 60; Glucose Random 100 mg/dL (60-115); Potassium 4.4 mmol/l (3.3-5.1); Sodium 138 mmol/L (135-145); Total Protein 6.4 g/dL (6.5-8.0)
[2020-01-14 11:59] LABS: Band Neutrophils Percent 13 % (3-5); Eosinophils Percent Manual 1 % (0-4); Lymphocytes Percent Manual 4 % (20-40); Metamyelocytes Percent 2 %; Monocytes Percent Manual 7 % (2-11); Myelocytes Percent 1 %; Neutrophils Percent Manual 72 % (45-73); RBC Morphology NORMAL
[2020-01-14 12:00] LABS: Platelet Estimate NORMAL (NORMAL); Platelet Morphology Comment NORM
--- NOTE | 2020-01-14 12:02 | MHC.HEMONC ---
pt here for port draw. He is feeling well. Will monitor labs.
[2020-01-14 12:10] LABS: Monocytes Absolute Manual 1.3 X10*3/uL (0.0-1.2)
[2020-01-14 12:11] LABS: Eosinophils Absolute Manual 0.2 X10*3/UL (0.0-0.8); Metamyelocytes Absolute 0.4 X10*3/uL
[2020-01-14 12:12] LABS: Promyelocytes Absolute 0.2 X10*3/uL
[2020-01-14 12:14] LABS: Lymphocytes Absolute Manual 0.7 X10*3/uL (0.6-4.8); Neutrophils Absolute Manual 15.4 X10*3/uL (2.2-7.9)
[2020-01-19 17:11] VITALS: BMI 27.5
[2020-01-21 08:18] VITALS: BP 146/71; PULSE 85; RESP 18; TEMP 36.7; O2SAT 98
[2020-01-21 08:47] VITALS: BMI 29.0
[2020-01-21 08:56] LABS: MANUAL DIFF FLAG NO
[2020-01-21 09:08] LABS: Basophils Absolute Auto 0.1 X10*3/uL (0.0-0.2); Basophils Percent Auto 0.5 % (0-2); Eosinophils Absolute Auto 0.1 X10*3/uL (0.0-0.4); Eosinophils Percent Auto 0.5 % (0-4); Hematocrit 35.3 % (42-52); Hemoglobin 11.8 g/dl (14.0-18.0); Imm Gran Abs Auto 0.21 X10*3/uL (0.00-0.03); Imm Gran Pct Auto 1.4 % (0.0-0.4); Lymphocytes Absolute Auto 0.8 X10*3/uL (1.2-4.9); Lymphocytes Percent Auto 5.1 % (20-40); Mean Corpuscular HGB Conc 33.4 g/dl (31.0-36.0); Mean Corpuscular Hemoglobin 32.7 pg (27.0-33.0); Mean Corpuscular Volume 97.8 fL (80-98); Mean Platelet Volume 9.4 fL (9.4-12.4); Monocytes Absolute Auto 1.4 X10*3/uL (0.1-1.2); Monocytes Percent Auto 9.2 % (2-11); Neutrophils Absolute Auto 12.5 X10*3/uL (2.0-8.3); Neutrophils Percent Auto 83.3 % (45-73); Platelet Count 358 X10*3/uL (160-400); Red Blood Count 3.61 X10*6/uL (4.60-5.80); Red Cell Distribution Width 15.3 % (11.0-16.0)
[2020-01-21 09:26] LABS: Alanine Aminotransferase 19 U/L (0-40); Albumin Level 4.1 g/dL (3.5-5.0); Alkaline Phosphatase 91 U/L (39-117); Anion Gap 12 (12-20); Aspartate Amino Transferase 18 U/L (5-37); Bilirubin Total 0.3 mg/dL (0.0-1.0); Blood Urea Nitrogen 25 mg/dL (9-16); Carbon Dioxide 26 mmol/L (22-29); Chloride 106 mmol/L (96-108); Creatinine Clr Calc Pharmacy 84.6; Estimated Glomerular Filt Rate > 60; Glucose Random 104 mg/dL (60-115); Potassium 4.4 mmol/l (3.3-5.1); Sodium 140 mmol/L (135-145); Total Protein 6.2 g/dL (6.5-8.0)
[2020-01-21] MEDS: ondansetron HCL/NS 16 MG/50 ML PIGGYBACK 200 MG IV (09:51)
[2020-01-21] MEDS: dexAMETHasone sod phosphate/NS 12 MG/50 ML PIGGYBACK 100 MG IV (09:52)
[2020-01-21] MEDS: Fosaprepitant Dimeglumine 150 MG in 0.9 % Sodium Chloride 145 ML 300 MG IV (11:01)
[2020-01-21] MEDS: SODIUM CHLORIDE 0.9% IV ×2 (11:55→15:10)
[2020-01-21] MEDS: RITUXIMAB IV (11:55)
--- NOTE | 2020-01-21 12:39 | MHC.HEMONCSW ---
PA FOR PET SCAN WENT TO [facility] CLINICAL REVIEW. CASE# [id number]. WAIT DECISION.
--- NOTE | 2020-01-21 12:42 | PM.HEMONCPN ---
Medical Summary - Medical Summary Chief complaint: FOLLOW-UP FOR MANTLE CELL LYMPHOMA. Medical Summary: DIAGNOSIS: Mantle cell lymphoma. CURRENT THERAPY: Start R-CHOP, October 07. Completed cycle 3 on November 18. HERE FOR CYCLE 6. Interval History Interval history: This is a pleasant 69-year-old gentleman, here for a follow-up visit. He has been doing extremely well. He has been tolerating the chemotherapy very well, without much of a problem. The only thing is that he has an after taste when he eats. He attributes that to the steroids that he has had. He tells me his breathing is good. he actually walked 3 miles yesterday without any trouble with it. He denies chest pain. He denies any major easy fatigability. sometimes he feels a little bit tired. No fever nor chills. He denies abdominal pain. Nausea or vomiting. He did not even need to use his Zofran. No heartburn indigestion. Bowels are working without any gross blood in it. He enjoys a good appetite. He has gained weight. He is in good spirits. Rest of the review of systems is unremarkable. Review of Systems - Constitutional Reports no additional constitutional complaints, Reports fatigue - Eyes Reports no additional eye complaints - ENT Reports no additional ear, nose, mouth, and throat complaints - Cardiovascular Reports no additional cardiovascular complaints - Respiratory Reports no additional respiratory complaints, Denies dyspnea on exertion - Gastrointestinal Reports no additional gastrointestinal complaints, Denies change in stools, Denies constipation - Genitourinary Genitourinary: Reports no additional male genitourinary complaints - Musculoskeletal Reports no additional musculoskeletal complaints - Integumentary/Breasts Skin/Breast: Reports no additional skin complaints - Neurologic Reports no additional neurologic complaints - Psychiatric Reports no additional psychiatric complaints - Endocrine Reports no additional endocrine complaints [facility] Medical History: Medical History (Last Updated 01/21/20 @ 12:47 by Leslie Galvan MD) Hyperlipidemia Hypertension Functional capacity: independent ambulation Home Medications and Allergies Current Medications: Current Medications Generic Name Dose Route Start Last Admin Trade Name Freq PRN Reason Stop Dose Admin Heparin Sodium (Porcine) 500 unit 01/21/20 00:00 Heparin Sodium,Porcine Flush 500 Unit/5 Ml Syringe IVFLUSH 01/21/20 23:59 ONCE PACO Fosaprepitant 150 mg/ Sodium 150 mls @ 300 mls/hr 01/21/20 00:00 Chloride IV 01/21/20 23:59 ONCE PACO Ondansetron HCl 16 mg in 50 mls @ 200 mls/hr 01/21/20 00:00 01/21/20 10:06 Zofran IV 01/21/20 23:59 Infused ONCE PACO Infusion Dexamethasone Sodium Phosphate 12 mg in 50 mls @ 100 mls/hr 01/21/20 00:00 01/21/20 10:07 Decadron IV 01/21/20 23:59 Infused ONCE PACO Infusion Cyclophosphamide 1,000 mg/ 320 mls @ 320 mls/hr 01/21/20 00:00 Cyclophosphamide 400 mg/ IV 01/21/20 23:59 Sodium Chloride ONCE PACO Doxorubicin HCl 94 mg/ IV 47 mls @ 564 mls/hr 01/21/20 00:00 Miscellaneous Supplies IVPUSH 01/21/20 23:59 ONCE PACO Rituximab 500 mg/ Rituximab 320 mls @ 0 mls/hr 01/21/20 00:00 01/21/20 11:55 200 mg/ Sodium Chloride IV 01/21/20 23:59 92 mls/hr ONCE PACO Administration Protocol Titrate Vincristine Sulfate 2 mg/ 52 mls @ 156 mls/hr 01/21/20 00:00 Dextrose IV 01/21/20 23:59 ONCE PACO Pegfilgrastim 6 mg 01/21/20 00:00 Pegfilgrastim Onpro 6 Mg/0.6 Ml Syr.W..Inj SUBCUT 01/21/20 23:59 ONCE PACO Prednisone 60 mg 01/21/20 12:41 Prednisone 20 Mg Tablet PO 01/21/20 12:42 ONCE ONE Home Medications Medication Instructions Recorded Confirmed Type allopurinol 150 mg PO DAILY 01/07/20 01/07/20 History ferrous sulfate [iron] 325 mg PO DAILY 01/07/20 01/07/20 History lisinopril 10 mg PO DAILY 01/07/20 01/07/20 History multivitamin [Multi-Vitamin] 1 tab PO DAILY 01/07/20 01/07/20 History prednisone 20 mg PO TID 01/07/20 01/07/20 History simvastatin 80 mg PO BEDTIME 01/07/20 01/07/20 History Allergies Allergy/AdvReac Type Severity Reaction Status Date / Time No Known Allergies Allergy Verified 01/21/20 09:57 Exam Vital signs: Vital Signs Temp 98.1 F 01/21/20 08:18 Pulse 85 01/21/20 08:18 Resp 18 01/21/20 08:18 BP 146/71 H 01/21/20 08:18 Pulse Ox 98 01/21/20 08:18 Intake & Output 01/20/20 01/21/20 01/21/20 18:59 06:59 18:59 Intake Total 250 / 250 Balance 250 / 250 Intake: Intake, IV Amount 250 / 250 Fosaprepitant Dimeglumine 150 150 / 150 mg In 0.9 % Sodium Chloride 145 ml @ 300 mls/hr IV ONCE ONE Rx #:[id number] dexAMETHasone sod phosphate/NS 50 / 50 12 mg In 50 ml @ 100 mls/hr IV ONCE PACO Rx#:[id number] ondansetron HCL/NS 16 mg In 50 50 / 50 ml @ 200 mls/hr IV ONCE PACO Rx# :[id number] Other: Weight 76.884 kg Weight 76.884 kg Body Mass Index 29.0 - Constitutional Present: no acute distress - Routine HEENT Exam Head: Present: normal inspection ENT: Present: mucous membranes moist - Routine Neck Exam Present: full ROM - Routine Respiratory Exam Present: CTAB - Routine Cardiovascular Exam Cardiovascular: Present: RRR, S1, S2 - Routine Abdominal Exam Present: soft, nontender - Routine Rectal Exam Patient deferred: digital exam - Routine Exam Perineum Description: Normal - Routine Extremities Exam Present: nontender - Routine Back/Spine/Pelvis Exam Back/Spine: Present: full ROM - Routine Neurological Exam Present: alert, oriented X3 - Detailed Neurological Exam: Coma Scale Eye Opening: Spontaneous (4) - Routine Psychiatric Exam Present: normal affect Data - Labs CBC & Chem 7: 01/21/20 08:30 01/21/20 08:30 Labs: Laboratory Results - last 24 hr 01/21/20 01/21/20 08:30 08:30 WBC 15.0 H RBC 3.61 L Hgb 11.8 L Hct 35.3 L MCV 97.8 MCH 32.7 MCHC 33.4 RDW 15.3 Plt Count 358 D MPV 9.4 Immature Gran % (Auto) 1.4 H Neut % (Auto) 83.3 H Lymph % (Auto) 5.1 L [place] % (Auto) 9.2 Eos % (Auto) 0.5 Baso % (Auto) 0.5 Lymph # (Auto) 0.8 L [place] # (Auto) 1.4 H Eos # (Auto) 0.1 Baso # (Auto) 0.1 Abs Immat Gran (auto) 0.21 H Absolute Neuts (auto) 12.5 H Absolute Nucleated RBC 0.000 Nucleated RBC % (auto) 0.0 Sodium 140 Potassium 4.4 Chloride 106 Carbon Dioxide 26 Anion Gap 12 BUN 25 H Creatinine 0.75 Estim Creat Clear Calc 84.6 Estimated GFR > 60 Random Glucose 104 Calcium 9.0 Total Bilirubin 0.3 AST 18 ALT 19 Alkaline Phosphatase 91 Total Protein 6.2 L Albumin 4.1 Progress Note: A/P (1) Mantle cell lymphoma Status: Acute Assessment and plan: This is a pleasant 69-year-old gentleman, who presented with shortness of breath. He has been noted to have diffuse mediastinal and bilateral hilar adenopathy, internal mammary adenopathy bilateral anterior diaphragmatic lymphadenopathy, retro crural adenopathy and bilateral axillary adenopathy. There is a question of right chest wall mass. Enlarged retroperitoneal lymph nodes, splenomegaly. He also has bilateral pleural effusions. CT scan of the abdomen from September 14 revealed: CT scan of the abdomen from this afternoon revealed: Diffuse lymphadenopathy throughout the abdomen and pelvis. Largest lymph node is a left external iliac lymph node no masses measuring 7 x 8 cm. Polypoid mass in the cecum and proximal ascending colon and second 3 x 3.5 cm polypoid mass in the proximal transverse colon. Enlarged prostate gland. Slightly enlarged spleen. Probable gallstone. Right thoracentesis revealed: B-cell lymphoma. He had left inguinal lymph node biopsy September 14 which revealed: Mantle cell Lymphoma. However further studies including fish testing is pending. Will wait for the final results to decide about treatment. If it is revealed that it is an indolent lymphoma, will treat with bendamustine/ rituximab. If more aggressive, then R-CHOP. Echocardiogram from yesterday morning revealed: Normal LV systolic function with LVEF of 65-70%. Impaired relaxation filling pattern. Biopsy of the left inguinal lymph node from September 14 revealed: Mantle cell lymphoma with Ki-67 proliferative index of approximately 20%. Flow cytometry analysis demonstrates a kappa restricted, mature B-cell lymphoma that coexpresses CD20, CD5 and partial CD10 that is negative for CD23. t(11,14) (IGH/CCND1 translocation) is present by FISH analysis. There is Cyclin D1 overexpression by immunohistochemistry on the biopsy. CD10 expression (as seen in this case) can rarely be seen in mantle cell lymphoma and does not preclude the diagnosis given the morphologic, immunophenotypic and FISH findings. This addendum is issued to report results of additional immunohistochemical analysis. SOX-11 is expressed in the neoplastic cells. This finding is consistent with the previously rendered diagnosis. PET scan from October 01 revealed: Bilateral internal jugular chain adenopathy, SUV of 6, bilateral supraclavicular nodes, midline suprasternal lymph node, bilateral axillary adenopathy, superior mediastinum, right hemithorax pleural/extrapleural lymphadenopathy, bilateral internal mammary chain, middle mediastinum, bilateral hilum, retrocrural, celiac axis, abdominal retroperitoneal periaortic adenopathy, mesentery adenopathy, right-sided colonic mass/pericolonic lymph nodes SUV 7.8, bilateral bulky pelvic adenopathy, bilateral inguinal adenopathy SUV 5.7. Splenomegaly measures 15 cm without focal splenic lesion. His bone marrow exam was positive: Mildly hypercellular marrow with erythroid hyperplasia and minimal marrow involvement by mantle cell lymphoma. The mantle cell lymphoma international prognostic index(MIPI) is based on 4 independent factors: Age, performance status, LDH and leukocyte count. Ki-67 is an important biological marker, and shows strong additional prognostic relevance. His MIPI score is 6.7, he would be deemed high risk, with the median overall survival of 37 months. Intermediate and high-risk patients are treated with immuno chemotherapy. There is diversity in clinical practice for the treatment, with very few head to head studies of the various regimens. Since he belongs to the high-risk category, I have elected to treat him with an aggressive regimen. I have elected to treat him with systemic chemotherapy with R-CHOP x 6. He has completed 5 cycles and has tolerated them very well. He is here for cycle 6. He has completed 3 cycles as of November 18. He had a PET scan: 1. There has been a marked partial metabolic response to therapy of extensive FDG avid lymphadenopathy and FDG avid right colonic wall thickening previously present, as described above. Using the 5 point Deauville scale, this patient would be classified as a Deauville score of 4. 2. Cholelithiasis. 3. Vascular calcifications including coronary. This is encouraging. PLAN: He will complete this 6th cycle of R-CHOP. Will then re-stage him with another PET scan. Hopefully he will go into complete remission. He will return in a week for labs and hydration. He is due for his echocardiogram as well. Thank you, CC: Dr. Zion Irby. - Time Spent With Patient Total time spent is greater than 50% in coordination of care (as documented) at patient's floor/unit and/or counseling patient: 25 - 35 minutes
[2020-01-21] MEDS: predniSONE 20 MG TABLET 60 MG PO (12:54)
[2020-01-21] MEDS: DOXORUBICIN HCL IVPUSH (14:37)
[2020-01-21] MEDS: CONTAINER EMPTY IVPUSH (14:37)
[2020-01-21] MEDS: DEXTROSE 5% IV (14:49)
[2020-01-21] MEDS: VINCRISTINE SULFATE IV (14:49)
[2020-01-21] MEDS: CYCLOPHOSPHAMIDE IV (15:10)
[2020-01-21] MEDS: Heparin Sodium,Porcine Flush 500 UNIT/5 ML SYRINGE IVFLUSH (16:17)
--- NOTE | 2020-01-22 10:37 | MHC.HEMONCSW ---
RECEIVED [facility] FOR PET SCAN, FAXED THEM MD ORDERS FOR 02/02/20. THEY WILL CALL TO SCHEDULE PT. A# [phone]. RANGE; 01/21/20 TO 07/20/19.
[2020-01-22 16:12] VITALS: BMI 30.2
[2020-01-22 16:16] VITALS: BP 143/64; PULSE 66; RESP 18; TEMP 36.4; O2SAT 100
[2020-01-28 10:40] VITALS: BP 157/69; PULSE 82; RESP 16; TEMP 36.9; O2SAT 96
[2020-01-28 10:43] VITALS: BMI 29.7
--- NOTE | 2020-01-28 11:47 | MHC.HEMONC ---
Patient here today for labs and port flush. Patient has PET scan scheduled for this Saturday and follow up next .
[2020-01-28 11:49] LABS: Hematocrit 32.4 % (42-52); Hemoglobin 10.7 g/dl (14.0-18.0); Mean Corpuscular Hemoglobin 32.4 pg (27.0-33.0); Mean Corpuscular Volume 98.2 fL (80-98); Mean Platelet Volume 10.1 fL (9.4-12.4); Platelet Count 158 X10*3/uL (160-400); Red Cell Distribution Width 13.9 % (11.0-16.0)
[2020-01-28 11:50] LABS: WBC ABN SCTR FOR CBC 1
[2020-01-28 12:24] LABS: White Blood Count 1.8 X10*3/uL (4.8-10.8)
[2020-01-28 12:33] LABS: Basophils Abs Manual 0.1 X10*3/uL (0.0-0.3); Basophils Percent Manual 3 % (0-1); Eosinophils Absolute Manual 0.2 X10*3/UL (0.0-0.8); Eosinophils Percent Manual 10 % (0-4); Lymphocytes Absolute Manual 0.7 X10*3/uL (0.6-4.8); Lymphocytes Percent Manual 39 % (20-40); Monocytes Absolute Manual 0.6 X10*3/uL (0.0-1.2); Monocytes Percent Manual 36 % (2-11); Neutrophils Percent Manual 12 % (45-73); RBC Morphology NORMAL
[2020-01-28 12:35] LABS: Band Neutrophils Percent 0 % (3-5); Neutrophils Absolute Manual 0.2 X10*3/uL (2.2-7.9)
[2020-01-28 12:36] LABS: Platelet Estimate NORMAL (NORMAL); Platelet Morphology Comment NORMAL
[2020-01-28 12:42] LABS: Alanine Aminotransferase 15 U/L (0-40); Albumin Level 3.9 g/dL (3.5-5.0); Alkaline Phosphatase 82 U/L (39-117); Anion Gap 14 (12-20); Aspartate Amino Transferase 13 U/L (5-37); Bilirubin Total 0.4 mg/dL (0.0-1.0); Blood Urea Nitrogen 15 mg/dL (9-16); Calcium 8.9 mg/dL (8.4-10.2); Carbon Dioxide 24 mmol/L (22-29); Chloride 104 mmol/L (96-108); Creatinine Clr Calc Pharmacy 97.2; Estimated Glomerular Filt Rate > 60; Glucose Random 90 mg/dL (60-115); Potassium 4.1 mmol/l (3.3-5.1); Sodium 138 mmol/L (135-145); Total Protein 5.9 g/dL (6.5-8.0)
[2020-02-04 11:21] VITALS: BP 144/68; PULSE 77; RESP 18; TEMP 36.9; O2SAT 98; BMI 29.7
[2020-02-04 11:33] LABS: Hematocrit 35.7 % (42-52); Hemoglobin 11.4 g/dl (14.0-18.0); Mean Corpuscular HGB Conc 31.9 g/dl (31.0-36.0); Mean Corpuscular Hemoglobin 31.6 pg (27.0-33.0); Mean Corpuscular Volume 98.9 fL (80-98); Mean Platelet Volume 9.4 fL (9.4-12.4); Platelet Count 269 X10*3/uL (160-400); Red Blood Count 3.61 X10*6/uL (4.60-5.80); Red Cell Distribution Width 14.1 % (11.0-16.0); White Blood Count 14.8 X10*3/uL (4.8-10.8)
[2020-02-04 12:05] LABS: Alanine Aminotransferase 16 U/L (0-40); Albumin Level 4.1 g/dL (3.5-5.0); Alkaline Phosphatase 97 U/L (39-117); Anion Gap 13 (12-20); Aspartate Amino Transferase 18 U/L (5-37); Bilirubin Total 0.5 mg/dL (0.0-1.0); Blood Urea Nitrogen 21 mg/dL (9-16); Calcium 8.9 mg/dL (8.4-10.2); Carbon Dioxide 24 mmol/L (22-29); Chloride 106 mmol/L (96-108); Creatinine Clr Calc Pharmacy 90.3; Estimated Glomerular Filt Rate > 60; Glucose Random 109 mg/dL (60-115); Lactate Dehydrogenase 239 U/L (118-273); Potassium 4.1 mmol/l (3.3-5.1); Sodium 139 mmol/L (135-145); Total Protein 6.2 g/dL (6.5-8.0)
[2020-02-04 12:31] LABS: Atypical Lymph Absolute Manual 0.1 x10*3/uL; Atypical Lymphs Percent Manual 1 % (0-6); Band Neutrophils Percent 11 % (3-5); Basophils Abs Manual 0.1 X10*3/uL (0.0-0.3); Basophils Percent Manual 1 % (0-1); Eosinophils Absolute Manual 0.1 X10*3/UL (0.0-0.8); Eosinophils Percent Manual 1 % (0-4); Lymphocytes Percent Manual 7 % (20-40); Metamyelocytes Absolute 0.3 X10*3/uL; Metamyelocytes Percent 2 %; Monocytes Absolute Manual 0.7 X10*3/uL (0.0-1.2); Monocytes Percent Manual 5 % (2-11); Neutrophils Absolute Manual 12.3 X10*3/uL (2.2-7.9); Neutrophils Percent Manual 72 % (45-73)
[2020-02-04 12:32] LABS: Platelet Estimate NORMAL (NORMAL); Platelet Morphology Comment NORMAL
[2020-02-04 12:33] LABS: RBC Morphology NORMAL
[2020-02-11 08:36] VITALS: BP 145/69; PULSE 78; RESP 18; TEMP 36.4; O2SAT 97; BMI 29.7
[2020-02-11 09:14] LABS: MANUAL DIFF FLAG NO
[2020-02-11 09:15] LABS: Basophils Absolute Auto 0.1 X10*3/uL (0.0-0.2); Basophils Percent Auto 0.8 % (0-2); Eosinophils Absolute Auto 0.1 X10*3/uL (0.0-0.4); Eosinophils Percent Auto 0.8 % (0-4); Hemoglobin 11.6 g/dl (14.0-18.0); Imm Gran Abs Auto 0.09 X10*3/uL (0.00-0.03); Lymphocytes Absolute Auto 0.7 X10*3/uL (1.2-4.9); Lymphocytes Percent Auto 7.8 % (20-40); Mean Corpuscular HGB Conc 33.1 g/dl (31.0-36.0); Mean Corpuscular Hemoglobin 32.1 pg (27.0-33.0); Mean Platelet Volume 9.3 fL (9.4-12.4); Monocytes Absolute Auto 1.3 X10*3/uL (0.1-1.2); Monocytes Percent Auto 14.2 % (2-11); Neutrophils Absolute Auto 6.9 X10*3/uL (2.0-8.3); Neutrophils Percent Auto 75.4 % (45-73); Platelet Count 311 X10*3/uL (160-400); Red Blood Count 3.61 X10*6/uL (4.60-5.80); Red Cell Distribution Width 13.8 % (11.0-16.0); White Blood Count 9.2 X10*3/uL (4.8-10.8)
[2020-02-11 10:00] LABS: Alanine Aminotransferase 17 U/L (0-40); Albumin Level 3.9 g/dL (3.5-5.0); Alkaline Phosphatase 88 U/L (39-117); Anion Gap 13 (12-20); Aspartate Amino Transferase 18 U/L (5-37); Bilirubin Total 0.2 mg/dL (0.0-1.0); Blood Urea Nitrogen 19 mg/dL (9-16); Calcium 8.4 mg/dL (8.4-10.2); Carbon Dioxide 24 mmol/L (22-29); Chloride 104 mmol/L (96-108); Creatinine Clr Calc Pharmacy 87.8; Estimated Glomerular Filt Rate > 60; Glucose Random 101 mg/dL (60-115); Potassium 4.3 mmol/l (3.3-5.1); Sodium 137 mmol/L (135-145); Total Protein 6.1 g/dL (6.5-8.0)
[2020-02-11] MEDS: predniSONE 20 MG TABLET PO (10:19)
[2020-02-11] MEDS: Acetaminophen 325 MG TABLET 650 MG PO (10:20)
[2020-02-11] MEDS: ondansetron HCL/NS 16 MG/50 ML PIGGYBACK 200 MG IV (10:23)
[2020-02-11] MEDS: dexAMETHasone sod phosphate/NS 12 MG/50 ML PIGGYBACK 200 MG IV (10:44)
[2020-02-11] MEDS: predniSONE 20 MG TABLET 40 MG PO (10:54)
[2020-02-11] MEDS: diphenhydrAMINE HCL 50 MG/ML VIAL 25 MG IVPUSH (11:00)
[2020-02-11] MEDS: Fosaprepitant Dimeglumine 150 MG in 0.9 % Sodium Chloride 145 ML 300 MG IV (11:23)
--- NOTE | 2020-02-11 11:41 | MHC.HEMONCSW ---
SPOKE WITH CRISTINA AT [facility]. ATTEMPTED TO GET RE-AUTH ON RITUXAN. WAS TOLD IT IS TOO EALRY AND I NEED TO CALL AFTER 03/02/20. JHONNY [phone]
[2020-02-11] MEDS: SODIUM CHLORIDE 0.9% IV ×2 (12:03→15:42)
[2020-02-11] MEDS: RITUXIMAB IV (12:03)
[2020-02-11] MEDS: CONTAINER EMPTY IVPUSH (14:58)
[2020-02-11] MEDS: DOXORUBICIN HCL IVPUSH (14:58)
[2020-02-11] MEDS: DEXTROSE 5% IV (15:07)
[2020-02-11] MEDS: VINCRISTINE SULFATE IV (15:07)
[2020-02-11] MEDS: CYCLOPHOSPHAMIDE IV (15:42)
[2020-02-11] MEDS: Heparin Sodium,Porcine Flush 500 UNIT/5 ML SYRINGE IVFLUSH (16:50)
--- NOTE | 2020-02-11 17:04 | P.PNHO_ITS ---
Medical Summary - Medical Summary Chief complaint: follow-up for mantle cell lymphoma. Here for cycle 7 R-CHOP Medical Summary: DIAGNOSIS: Mantle cell lymphoma. CURRENT THERAPY: Start R-CHOP, October 07. Completed cycle 3 on November 18. HERE FOR CYCLE 6. Interval History Interval history: This is a pleasant 69-year-old gentleman, here for a follow-up visit. He has been doing extremely well. He has been tolerating the chemotherapy very well, without much of a problem. He denies any nausea nor vomiting. He has not even used his anti emetics. The only thing is that he has an after taste when he eats. He attributes that to the steroids that he has had. He tells me his breathing is good. He actually walks 3 miles a day without any trouble with it. He denies chest pain. He denies any major easy fatigability. Sometimes he feels a little bit tired. No fever nor chills. He denies abdominal pain. No Nausea nor vomiting. No heartburn indigestion. Bowels are working without any gross blood in it. He enjoys a good appetite. He has gained weight. He has noticed some tingling in his toes. Nothing in his upper extremities. He is in good spirits. Rest of the review of systems is unremarkable. Review of Systems - Constitutional Reports system reviewed and no additional complaints, except as documented, Denies fatigue, Denies fever(s) - Eyes Reports system reviewed and no additional complaints, except as documented - ENT Reports system reviewed and no additional complaints, except as documented - Cardiovascular Reports system reviewed and no additional complaints, except as documented - Respiratory Reports no additional respiratory complaints - Gastrointestinal Reports system reviewed and no additional complaints, except as documented - Genitourinary Genitourinary: Reports no additional male genitourinary complaints - Musculoskeletal Reports system reviewed and no additional complaints, except as documented - Neurologic Reports system reviewed and no additional complaints, except as documented - Endocrine Reports no additional endocrine complaints, Denies increased thirst - Allergic/Immunologic Reports system reviewed and no additional complaints, except as documented PMFSH Medical History: Medical History (Last Reviewed 02/11/20 @ 09:08 by Brenda Ma RN) Hyperlipidemia Hypertension Functional capacity: independent ambulation Smoking status: Never smoker Home Medications and Allergies Current Medications: Current Medications Generic Name Dose Route Start Last Admin Trade Name Freq PRN Reason Stop Dose Admin Acetaminophen 650 mg 02/11/20 00:00 02/11/20 10:20 Acetaminophen 325 Mg Tablet PO 02/11/20 23:59 650 mg ONCE PACO Administration Diphenhydramine HCl 25 mg 02/11/20 00:00 02/11/20 11:00 Diphenhydramine Hcl 50 Mg/Ml Vial IVPUSH 02/11/20 23:59 25 mg ONCE PACO Administration Heparin Sodium (Porcine) 500 unit 02/11/20 00:00 02/11/20 16:50 Heparin Sodium,Porcine Flush 500 Unit/5 Ml Syringe IVFLUSH 02/11/20 23:59 500 unit ONCE PACO Administration Ondansetron HCl 16 mg in 50 mls @ 200 mls/hr 02/11/20 00:00 02/11/20 10:40 Zofran IV 02/11/20 23:59 Infused ONCE PACO Infusion Dexamethasone Sodium Phosphate 12 mg in 50 mls @ 100 mls/hr 02/11/20 00:00 02/11/20 11:00 Decadron IV 02/11/20 23:59 Infused ONCE PACO Infusion Cyclophosphamide 1,000 mg/ 320 mls @ 320 mls/hr 02/11/20 00:00 02/11/20 16:42 Cyclophosphamide 400 mg/ IV 02/11/20 23:59 Infused Sodium Chloride ONCE PACO Infusion Doxorubicin HCl 94 mg/ IV 47 mls @ 564 mls/hr 02/11/20 00:00 02/11/20 15:06 Miscellaneous Supplies IVPUSH 02/11/20 23:59 Infused ONCE PACO Infusion Rituximab 500 mg/ Rituximab 320 mls @ 0 mls/hr 02/11/20 00:00 02/11/20 14:51 200 mg/ Sodium Chloride IV 02/11/20 23:59 Infused ONCE PACO Infusion Protocol As Directed Vincristine Sulfate 2 mg/ 52 mls @ 156 mls/hr 02/11/20 00:00 02/11/20 15:27 Dextrose IV 02/11/20 23:59 Infused ONCE PACO Infusion Pegfilgrastim 6 mg 02/11/20 00:00 Pegfilgrastim Onpro 6 Mg/0.6 Ml Syr.W..Inj SUBCUT 02/11/20 23:59 ONCE PACO Home Medications Medication Instructions Recorded Confirmed Type allopurinol 150 mg PO DAILY 01/07/20 02/11/20 History ferrous sulfate [iron] 325 mg PO DAILY 01/07/20 02/11/20 History lisinopril 10 mg PO DAILY 01/07/20 02/11/20 History multivitamin [Multi-Vitamin] 1 tab PO DAILY 01/07/20 02/11/20 History prednisone 20 mg PO TID 01/07/20 02/11/20 History simvastatin 80 mg PO BEDTIME 01/07/20 02/11/20 History Allergies Allergy/AdvReac Type Severity Reaction Status Date / Time No Known Allergies Allergy Verified 01/21/20 09:57 Exam Vital signs: Vital Signs Temp 97.6 F 02/11/20 08:36 Pulse 78 02/11/20 08:36 Resp 18 02/11/20 08:36 BP 145/69 H 02/11/20 08:36 Pulse Ox 97 02/11/20 08:36 Intake & Output 02/10/20 02/11/20 02/11/20 18:59 06:59 18:59 Intake Total 989.000 / 989.000 Balance 989.000 / 989.000 Intake: Intake, IV Amount 989.000 / 989.000 Cyclophosphamide 1,000 mg 320 / 320 Cyclophosphamide 400 mg In 0.9 % Sodium Chloride 250 ml @ 320 mls/hr IV ONCE PACO Rx#: [id number] Fosaprepitant Dimeglumine 150 150 / 150 mg In 0.9 % Sodium Chloride 145 ml @ 300 mls/hr IV ONCE ONE Rx #:[id number] dexAMETHasone sod phosphate/NS 50 / 50 12 mg In 50 ml @ 100 mls/hr IV ONCE PACO Rx#:[id number] ondansetron HCL/NS 16 mg In 50 50 / 50 ml @ 200 mls/hr IV ONCE PACO Rx# :[id number] riTUXimab 500 mg riTUXimab 200 320.000 / 320.000 mg In 0.9 % Sodium Chloride 250 ml @ As Directed IV ONCE PACO Rx#:[id number] vinCRIStine Sulfate 2 mg In 52 / 52 Dextrose 5 % 50 ml @ 156 mls/hr IV ONCE PACO Rx#:[id number] DOXOrubicin HCl 94 mg In 47 / 47 Container,Empty 0 ml @ 564 mls/ hr IVPUSH ONCE PACO Rx#: [id number] Other: Weight 78.5 kg Weight 78.5 kg Body Mass Index 29.7 - Constitutional Present: no acute distress - Routine HEENT Exam Head: Present: normal inspection - Routine Neck Exam Present: full ROM - Routine Respiratory Exam Present: CTAB - Routine Cardiovascular Exam Cardiovascular: Present: RRR, S1, S2 - Routine Abdominal Exam Present: soft, nontender - Routine Extremities Exam Present: nontender - Routine Back/Spine/Pelvis Exam Back/Spine: Present: full ROM - Routine Neurological Exam Present: alert, oriented X3 - Detailed Neurological Exam: Coma Scale Eye Opening: Spontaneous (4) - Routine Psychiatric Exam Present: normal affect Data - Labs CBC & Chem 7: 02/11/20 08:55 02/11/20 08:55 Labs: Laboratory Results - last 24 hr 02/11/20 02/11/20 08:55 08:55 WBC 9.2 RBC 3.61 L Hgb 11.6 L Hct 35.0 L MCV 97.0 MCH 32.1 MCHC 33.1 RDW 13.8 Plt Count 311 MPV 9.3 L Immature Gran % (Auto) 1.0 H Neut % (Auto) 75.4 H Lymph % (Auto) 7.8 L Nuckolls % (Auto) 14.2 H Eos % (Auto) 0.8 Baso % (Auto) 0.8 Lymph # (Auto) 0.7 L N[place]olls # (Auto) 1.3 H Eos # (Auto) 0.1 Baso # (Auto) 0.1 Abs Immat Gran (auto) 0.09 H Absolute Neuts (auto) 6.9 Absolute Nucleated RBC 0.000 Nucleated RBC % (auto) 0.0 Sodium 137 Potassium 4.3 Chloride 104 Carbon Dioxide 24 Anion Gap 13 BUN 19 H Creatinine 0.73 Estim Creat Clear Calc 87.8 Estimated GFR > 60 Random Glucose 101 Calcium 8.4 Total Bilirubin 0.2 AST 18 ALT 17 Alkaline Phosphatase 88 Total Protein 6.1 L Albumin 3.9 Progress Note: A/P (1) Mantle cell lymphoma Status: Acute Assessment and plan: This is a pleasant 69-year-old gentleman, who presented with shortness of breath. He has been noted to have diffuse mediastinal and bilateral hilar adenopathy, internal mammary adenopathy bilateral anterior diaphragmatic lymphadenopathy, retro crural adenopathy and bilateral axillary adenopathy. There is a question of right chest wall mass. Enlarged retroperitoneal lymph nodes, splenomegaly. He also has bilateral pleural effusions. CT scan of the abdomen from September 14 revealed: CT scan of the abdomen from this afternoon revealed: Diffuse lymphadenopathy throughout the abdomen and pelvis. Largest lymph node is a left external iliac lymph node no masses measuring 7 x 8 cm. Polypoid mass in the cecum and proximal ascending colon and second 3 x 3.5 cm polypoid mass in the proximal transverse colon. Enlarged prostate gland. Slightly enlarged spleen. Probable gallstone. Right thoracentesis revealed: B-cell lymphoma. He had left inguinal lymph node biopsy September 14 which revealed: Mantle cell Lymphoma. However further studies including fish testing is pending. Will wait for the final results to decide about treatment. If it is revealed that it is an indolent lymphoma, will treat with bendamustine/ rituximab. If more aggressive, then R-CHOP. Echocardiogram from yesterday morning revealed: Normal LV systolic function with LVEF of 65-70%. Impaired relaxation filling pattern. CT scan of the abdomen from September 14 revealed: Diffuse lymphadenopathy throughout the abdomen and pelvis. Largest lymph node is a left external iliac lymph node no masses measuring 7 x 8 cm. Polypoid mass in the cecum and proximal ascending colon and second 3 x 3.5 cm polypoid mass in the proximal transverse colon. Enlarged prostate gland. Slightly enlarged spleen. Probable gallstone. Biopsy of the left inguinal lymph node from September 14 revealed: Mantle cell lymphoma with Ki-67 proliferative index of approximately 20%. Flow cytometry analysis demonstrates a kappa restricted, mature B-cell lymphoma that coexpresses CD20, CD5 and partial CD10 that is negative for CD23. t(11,14) (IGH/CCND1 translocation) is present by FISH analysis. There is Cyclin D1 overexpression by immunohistochemistry on the biopsy. CD10 expression (as seen in this case) can rarely be seen in mantle cell lymphoma and does not preclude the diagnosis given the morphologic, immunophenotypic and FISH findings. This addendum is issued to report results of additional immunohistochemical analysis. SOX-11 is expressed in the neoplastic cells. PET scan from October 01 revealed: Bilateral internal jugular chain adenopathy, SUV of 6, bilateral supraclavicular nodes, midline suprasternal lymph node, bilateral axillary adenopathy, superior mediastinum, right hemithorax pleural/extrapleural lymphadenopathy, bilateral internal mammary chain, middle mediastinum, bilateral hilum, retrocrural, celiac axis, abdominal retroperitoneal periaortic adenopathy, mesentery adenopathy, right-sided colonic mass/pericolonic lymph nodes SUV 7.8, bilateral bulky pelvic adenopathy, bilateral inguinal adenopathy SUV 5.7. Splenomegaly measures 15 cm without focal splenic lesion. His bone marrow exam was positive: Mildly hypercellular marrow with erythroid hyperplasia and minimal marrow involvement by mantle cell lymphoma. I have elected to treat him with systemic chemotherapy with R-CHOP x 6. So far he has tolerated it extremely well. He has not had any GI upset nor nausea. Has not required any anti emetics. He has completed 3 cycles as of November 18. He had a PET scan: 1. There has been a marked partial metabolic response to therapy of extensive FDG avid lymphadenopathy and FDG avid right colonic wall thickening previously present, as described above. Using the 5 point Deauville scale, this patient would be classified as a Deauville score of 4. 2. Cholelithiasis. 3. Vascular calcifications including coronary. He has completed 6 cycles of R-CHOP. Repeat PET scan from last week revealed improvement however there is still residual disease in the supraclavicular area and abdomen. With Frontier 4 uptake. His echocardiogram was done yesterday and was good. PLAN: I have elected to give him 2 more cycles of R-CHOP to achieve complete remission. he will receive cycle 7 today. he will return tomorrow for the Neulasta. he will return weekly for labs and in 3 weeks for his 8th cycle. will then proceed with the PET scan after he is done. thank you, cc: dr. Zion Irby. Amilcar Nobles. - Time Spent With Patient Total time spent is greater than 50% in coordination of care (as documented) at patient's floor/unit and/or counseling patient: 25 - 35 minutes
[2020-02-12 16:03] VITALS: BP 132/66; PULSE 74; RESP 18; TEMP 36.9; O2SAT 97
[2020-02-12 16:04] VITALS: BMI 30.2
[2020-02-18 10:41] VITALS: BP 134/63; PULSE 77; RESP 18; TEMP 36.8; O2SAT 98
[2020-02-18 11:13] LABS: Hemoglobin 10.9 g/dl (14.0-18.0); Mean Corpuscular Hemoglobin 32.3 pg (27.0-33.0); Mean Corpuscular Volume 97.9 fL (80-98); Mean Platelet Volume 10.8 fL (9.4-12.4); Platelet Count 133 X10*3/uL (160-400); Red Blood Count 3.37 X10*6/uL (4.60-5.80); Red Cell Distribution Width 13.5 % (11.0-16.0)
[2020-02-18 11:14] LABS: White Blood Count 1.7 X10*3/uL (4.8-10.8)
[2020-02-18 12:20] LABS: Alanine Aminotransferase 16 U/L (0-40); Alkaline Phosphatase 81 U/L (39-117); Anion Gap 14 (12-20); Aspartate Amino Transferase 14 U/L (5-37); Bilirubin Total 0.5 mg/dL (0.0-1.0); Blood Urea Nitrogen 22 mg/dL (9-16); Calcium 9.1 mg/dL (8.4-10.2); Carbon Dioxide 26 mmol/L (22-29); Chloride 102 mmol/L (96-108); Creatinine Clr Calc Pharmacy 87.1; Estimated Glomerular Filt Rate > 60; Glucose Fasting 90 mg/dL (60-99); Potassium 4.2 mmol/l (3.3-5.1); Sodium 138 mmol/L (135-145); Total Protein 6.2 g/dL (6.5-8.0)
[2020-02-18 12:31] LABS: Neutrophils Percent Manual 6 % (45-73)
[2020-02-18 12:32] LABS: Band Neutrophils Percent 2 % (3-5); Eosinophils Absolute Manual 0.3 X10*3/UL (0.0-0.8); Eosinophils Percent Manual 16 % (0-4); Lymphocytes Absolute Manual 0.8 X10*3/uL (0.6-4.8); Lymphocytes Percent Manual 48 % (20-40); Monocytes Absolute Manual 0.5 X10*3/uL (0.0-1.2); Monocytes Percent Manual 28 % (2-11); Neutrophils Absolute Manual 0.1 X10*3/uL (2.2-7.9)
[2020-02-18 12:33] LABS: RBC Morphology NOTED
[2020-02-18 12:34] LABS: Hypochromasia 1+; Platelet Estimate SLIGHTLY DECREASED (NORMAL); Platelet Morphology Comment NORMAL
[2020-02-25 10:34] VITALS: BMI 30.1
[2020-02-25 10:35] VITALS: BP 169/73; PULSE 83; RESP 18; TEMP 36.6; O2SAT 98
[2020-02-25 11:52] LABS: Hematocrit 35.6 % (42-52); Hemoglobin 12.1 g/dl (14.0-18.0); Mean Platelet Volume 9.8 fL (9.4-12.4); Platelet Count 248 X10*3/uL (160-400); Red Blood Count 3.67 X10*6/uL (4.60-5.80); White Blood Count 13.3 X10*3/uL (4.8-10.8)
[2020-02-25 12:22] LABS: Alanine Aminotransferase 17 U/L (0-40); Albumin Level 4.1 g/dL (3.5-5.0); Alkaline Phosphatase 101 U/L (39-117); Anion Gap 13 (12-20); Aspartate Amino Transferase 20 U/L (5-37); Bilirubin Total 0.2 mg/dL (0.0-1.0); Blood Urea Nitrogen 16 mg/dL (9-16); Calcium 8.8 mg/dL (8.4-10.2); Carbon Dioxide 26 mmol/L (22-29); Chloride 104 mmol/L (96-108); Estimated Glomerular Filt Rate > 60; Glucose Random 98 mg/dL (60-115); Potassium 4.1 mmol/l (3.3-5.1); Sodium 139 mmol/L (135-145); Total Protein 6.4 g/dL (6.5-8.0)
[2020-02-25 12:33] LABS: Band Neutrophils Percent 9 % (3-5); Basophils Abs Manual 0.1 X10*3/uL (0.0-0.3); Basophils Percent Manual 1 % (0-1); Hypochromasia 1+; Lymphocytes Absolute Manual 1.1 X10*3/uL (0.6-4.8); Lymphocytes Percent Manual 8 % (20-40); Metamyelocytes Absolute 0.4 X10*3/uL; Metamyelocytes Percent 3 %; Monocytes Absolute Manual 1.5 X10*3/uL (0.0-1.2); Monocytes Percent Manual 11 % (2-11); Neutrophils Absolute Manual 10.2 X10*3/uL (2.2-7.9); Neutrophils Percent Manual 68 % (45-73); Platelet Estimate NORMAL (NORMAL); Platelet Morphology Comment NORMAL; RBC Morphology NOTED
--- NOTE | 2020-02-29 09:57 | MHC.HEMONCSW ---
RECEIVED AUTH FOR ANTONIO. DATE RANGE....03/03/20 TO 07/30/20. A# [id number] 36 MG TOTAL.
[2020-03-02 08:12] VITALS: BP 146/66; PULSE 79; RESP 18; TEMP 37.1; O2SAT 99; BMI 30.7
[2020-03-02 08:46] LABS: MANUAL DIFF FLAG NO
[2020-03-02 08:52] LABS: Basophils Absolute Auto 0.1 X10*3/uL (0.0-0.2); Basophils Percent Auto 0.6 % (0-2); Eosinophils Absolute Auto 0.1 X10*3/uL (0.0-0.4); Eosinophils Percent Auto 0.9 % (0-4); Hematocrit 35.6 % (42-52); Hemoglobin 11.7 g/dl (14.0-18.0); Imm Gran Abs Auto 0.04 X10*3/uL (0.00-0.03); Imm Gran Pct Auto 0.5 % (0.0-0.4); Lymphocytes Absolute Auto 0.7 X10*3/uL (1.2-4.9); Lymphocytes Percent Auto 9.2 % (20-40); Mean Corpuscular HGB Conc 32.9 g/dl (31.0-36.0); Mean Corpuscular Hemoglobin 32.1 pg (27.0-33.0); Mean Corpuscular Volume 97.8 fL (80-98); Mean Platelet Volume 9.4 fL (9.4-12.4); Monocytes Absolute Auto 1.1 X10*3/uL (0.1-1.2); Monocytes Percent Auto 13.9 % (2-11); Neutrophils Absolute Auto 5.9 X10*3/uL (2.0-8.3); Neutrophils Percent Auto 74.9 % (45-73); Platelet Count 304 X10*3/uL (160-400); Red Blood Count 3.64 X10*6/uL (4.60-5.80); Red Cell Distribution Width 13.9 % (11.0-16.0); White Blood Count 7.8 X10*3/uL (4.8-10.8)
[2020-03-02 09:22] LABS: Alanine Aminotransferase 19 U/L (0-40); Alkaline Phosphatase 78 U/L (39-117); Anion Gap 11 (12-20); Aspartate Amino Transferase 16 U/L (5-37); Bilirubin Total < 0.2 mg/dL (0.0-1.0); Blood Urea Nitrogen 27 mg/dL (9-16); Carbon Dioxide 25 mmol/L (22-29); Chloride 105 mmol/L (96-108); Creatinine Clr Calc Pharmacy 86.8; Estimated Glomerular Filt Rate > 60; Glucose Random 107 mg/dL (60-115); Potassium 4.3 mmol/l (3.3-5.1); Sodium 137 mmol/L (135-145); Total Protein 6.2 g/dL (6.5-8.0)
[2020-03-02] MEDS: Acetaminophen 325 MG TABLET 650 MG PO (10:07)
[2020-03-02] MEDS: diphenhydrAMINE HCL 50 MG/ML VIAL 25 MG IVPUSH (10:07)
[2020-03-02] MEDS: predniSONE 20 MG TABLET 60 MG PO (10:11)
[2020-03-02] MEDS: dexAMETHasone sod phosphate/NS 12 MG/50 ML PIGGYBACK 200 MG IV (10:35)
[2020-03-02] MEDS: ondansetron HCL/NS 16 MG/50 ML PIGGYBACK 200 MG IV (10:56)
[2020-03-02] MEDS: Fosaprepitant Dimeglumine 150 MG in 0.9 % Sodium Chloride 145 ML 300 MG IV (11:30)
[2020-03-02] MEDS: SODIUM CHLORIDE 0.9% IV ×2 (12:28→15:54)
[2020-03-02] MEDS: RITUXIMAB IV (12:28)
[2020-03-02] MEDS: DOXORUBICIN HCL IVPUSH (15:10)
[2020-03-02] MEDS: CONTAINER EMPTY IVPUSH (15:10)
[2020-03-02] MEDS: VINCRISTINE SULFATE IV (15:27)
[2020-03-02] MEDS: DEXTROSE 5% IV (15:27)
[2020-03-02] MEDS: CYCLOPHOSPHAMIDE IV (15:54)
[2020-03-02] MEDS: Heparin Sodium,Porcine Flush 500 UNIT/5 ML SYRINGE IVFLUSH (16:58)
[2020-03-02] MEDS: Pegfilgrastim Onpro 6 MG/0.6 ML SYR.W..INJ SUBCUT (16:59)
--- NOTE | 2020-03-02 17:15 | MHC.HEMONC ---
C8 DAY 1: R-CHOP Well tolerated. No complaints. Neulasta on Pro to right upper arm. Patient to return next week for labs. Plan for repeat imaging and follow up with Dr. Galvan.
--- NOTE | 2020-03-08 08:45 | MHC.HEMONC ---
PET Scan ordered, Given to Melvina Fajardo to obtain PA and plan to book for 03/14/20
--- NOTE | 2020-03-08 09:26 | MHC.HEMONCSW ---
PA FOR PET SCAN WENT TO [facility] CLINICAL REVIEW. CASE# [id number] WAIT DECISION.
--- NOTE | 2020-03-09 12:36 | MHC.HEMONCSW ---
CHAY[place] FOR PET SCAN REMAINS IN CLINICAL REVIEW AT [facility].
[2020-03-10 09:13] VITALS: BP 145/67; PULSE 89; TEMP 36.8; O2SAT 98; BMI 30.7
--- NOTE | 2020-03-10 09:34 | MHC.HEMONC ---
Patient had labs drawn via port. Port flushed. Appointment booked and given to patient.
[2020-03-10 09:45] LABS: Hematocrit 32.4 % (42-52); Hemoglobin 10.9 g/dl (14.0-18.0); Mean Corpuscular HGB Conc 33.6 g/dl (31.0-36.0); Mean Corpuscular Hemoglobin 32.5 pg (27.0-33.0); Mean Corpuscular Volume 96.7 fL (80-98); Mean Platelet Volume 10.2 fL (9.4-12.4); Platelet Count 160 X10*3/uL (160-400); Red Blood Count 3.35 X10*6/uL (4.60-5.80); Red Cell Distribution Width 13.7 % (11.0-16.0)
[2020-03-10 09:53] LABS: WBC ABN SCTR FOR CBC 1
[2020-03-10 10:24] LABS: Band Neutrophils Percent 12 % (3-5); Basophils Percent Manual 3 % (0-1); Eosinophils Percent Manual 10 % (0-4); Lymphocytes Percent Manual 19 % (20-40); Monocytes Percent Manual 34 % (2-11); Neutrophils Percent Manual 21 % (45-73); Promyelocytes Percent 1 %
[2020-03-10 10:25] LABS: Hypochromasia 1+; RBC Morphology NOTED
[2020-03-10 10:26] LABS: Ovalocytes 1+; Platelet Estimate SLIGHTLY DECREASED (NORMAL); Platelet Morphology Comment NORMAL; Tear Drop Cells 1+
[2020-03-10 10:27] LABS: Basophils Abs Manual 0.1 X10*3/uL (0.0-0.3); Eosinophils Absolute Manual 0.3 X10*3/UL (0.0-0.8); Lymphocytes Absolute Manual 0.6 X10*3/uL (0.6-4.8)
[2020-03-10 10:34] LABS: Alanine Aminotransferase 16 U/L (0-40); Albumin Level 4.1 g/dL (3.5-5.0); Alkaline Phosphatase 84 U/L (39-117); Anion Gap 11 (12-20); Aspartate Amino Transferase 15 U/L (5-37); Bilirubin Total 0.4 mg/dL (0.0-1.0); Blood Urea Nitrogen 19 mg/dL (9-16); Calcium 9.3 mg/dL (8.4-10.2); Carbon Dioxide 26 mmol/L (22-29); Chloride 104 mmol/L (96-108); Creatinine Clr Calc Pharmacy 90.4; Estimated Glomerular Filt Rate > 60; Glucose Random 103 mg/dL (60-115); Lactate Dehydrogenase 198 U/L (118-273); Potassium 4.3 mmol/l (3.3-5.1); Sodium 137 mmol/L (135-145); Total Protein 6.2 g/dL (6.5-8.0)
--- NOTE | 2020-03-10 13:00 | MHC.HEMONCSW ---
CALLED [facility]....PET SCAN [place]AY[place]O REMAINS IN MD REVIEW.
--- NOTE | 2020-03-14 09:30 | MHC.HEMONCSW ---
[facility] APPROVED PET SCAN. FAXED [facility] ORDERS/CLINICALS FOR SCAN TO BE DONE TOMORROW. A# [id number].
--- NOTE | 2020-03-14 14:14 | MHC.HEMONCSW ---
PET SCAN WILL BE AT [facility] PER [facility] AT [place], PET CLOSED TODAY AND THEY DID NOT GET THIS REFERRAL IN TIME. MD ORDER/CLINICALS FAXED TO [facility]. REQUESTED TO EXPEDITE.
--- NOTE | 2020-03-15 12:44 | MHC.HEMONCSW ---
PET SCAN AT [facility] 03/18/20. THEY NOTIFIED PATIENT.
--- NOTE | 2020-03-21 10:41 | MHC.HEMONCMA ---
Patient called checking if we had his PET scan results, I looked in his chart and I only see his old PET scan. Patient states that he had this done at [facility] on Saturday. I let the patient know that once we get the results we will call him back. He is ok with this plan and understands.
[2020-04-07 10:03] VITALS: BP 157/75; PULSE 77; RESP 12; TEMP 36.8; O2SAT 96; BMI 31.9
--- NOTE | 2020-04-07 10:24 | P.PNHO_ITS ---
Medical Summary - Medical Summary Date of Service: 04/10/20 Chief complaint: FOLLOW-UP FOR DIFFUSE LARGE B-CELL LYMPHOMA. Medical Summary: DIAGNOSIS: Mantle cell lymphoma. CURRENT THERAPY: Start R-CHOP, October 07. Completed cycle 3 on November 18. Cycle 07:02/10. Completed CYCLE 8 on 03/02. Interval History Interval history: This is a pleasant 70 year-old gentleman, here for a follow-up visit. He has been doing extremely well. He denies much easy fatigability. Sometimes in the afternoon he has to take a nap however otherwise he has been walking 3 to 4 miles 3 to 4 times a week. He denies any fever nor chills. No headache no dizziness. He denies chest pain or trouble breathing. He denies any nausea nor vomiting. He denies abdominal pain. No heartburn indigestion. Bowels are working without any gross blood in it. He enjoys a good appetite. He has gained weight. He has noticed some tingling in his toes. Nothing in his upper extremities. He is in good spirits. Rest of the review of systems is unremarkable. He has been able to tolerate the chemotherapy very well, without much of a problem. . Review of Systems - Constitutional Reports no additional constitutional complaints - Eyes Reports no additional eye complaints - ENT Reports no additional ear, nose, mouth, and throat complaints - Cardiovascular Reports no additional cardiovascular complaints - Respiratory Reports no additional respiratory complaints - Gastrointestinal Reports no additional gastrointestinal complaints - Genitourinary Genitourinary: Reports no additional male genitourinary complaints - Musculoskeletal Reports no additional musculoskeletal complaints - Integumentary/Breasts Skin/Breast: Reports no additional skin complaints - Neurologic Reports no additional neurologic complaints - Psychiatric Reports no additional psychiatric complaints - Endocrine Reports no additional endocrine complaints - Hematologic/Lymphatic Reports no additional hematologic/lymphatic complaints - Allergic/Immunologic Reports no additional allergic/immunologic complaints [facility] Medical History: Medical History (Last Updated 04/07/20 @ 10:07 by Laurie Andrea) Hx of pleural effusion Hyperlipidemia Hypertension Functional capacity: independent ambulation Patient : No Family History: Family History (Last Updated 04/07/20 @ 10:08 by Laurie Andrea) Father Carotid artery stenosis Mother Kidney failure Surgical History: Surgical History (Last Updated 04/07/20 @ 10:07 by Laurie Andrea) History of medial meniscus repair of right knee Smoking status: Never smoker Home Medications and Allergies Home Medications Medication Instructions Recorded Confirmed Type ferrous sulfate [iron] 325 mg PO DAILY 01/07/20 03/02/20 History lisinopril 10 mg PO DAILY 01/07/20 03/02/20 History multivitamin [Multi-Vitamin] 1 tab PO DAILY 01/07/20 03/02/20 History simvastatin 80 mg PO BEDTIME 01/07/20 03/02/20 History Allergies Allergy/AdvReac Type Severity Reaction Status Date / Time No Known Allergies Allergy Verified 03/02/20 08:38 Exam Vital signs: Vital Signs Temp 98.3 F 04/07/20 10:03 Pulse 77 04/07/20 10:03 Resp 12 04/07/20 10:03 BP 157/75 H 04/07/20 10:03 Pulse Ox 96 04/07/20 10:03 Intake & Output 04/06/20 04/07/20 04/07/20 18:59 06:59 18:59 Other: Weight 84.4 kg Weight 84.4 kg Body Mass Index 31.9 - Constitutional Present: no acute distress - Routine HEENT Exam Head: Present: normal inspection Eye: Present: normal appearance ENT: Present: mucous membranes moist - Routine Neck Exam Present: full ROM - Routine Respiratory Exam Present: CTAB - Routine Cardiovascular Exam Cardiovascular: Present: RRR, S1, S2 - Routine Abdominal Exam Present: soft, nontender - Routine Extremities Exam Present: nontender - Routine Back/Spine/Pelvis Exam Back/Spine: Present: full ROM - Routine Skin Exam Present: intact - Routine Neurological Exam Present: alert, oriented X3 - Detailed Neurological Exam: Coma Scale Eye Opening: Spontaneous (4) - Routine Psychiatric Exam Present: normal affect Data - Labs CBC & Chem 7: 03/10/20 09:25 03/10/20 09:25 Labs: 01/07/20 11:45 Heparin Sodium,Porcine Flush 500 unit 0.9 % Sodium Chloride Flush [NS Flush] 5 ml IVFLUSH ONCE 01/07/20 11:56 Heparin Sodium,Porcine Flush 500 unit IVFLUSH .STK-MED ONE 01/07/20 12:00 Complete Blood Count Man Dif Stat Profile w/ Glucose [place] [Comprehensive Met. Panel] Stat 01/14/20 00:01 Heparin Sodium,Porcine Flush 500 unit 0.9 % Sodium Chloride Flush [NS Flush] 5 ml IVFLUSH ONCE 01/14/20 11:01 Heparin Sodium,Porcine Flush 500 unit IVFLUSH .STK-MED ONE 01/14/20 11:15 CMP [Comprehensive Met. Panel] Routine Complete Blood Count no Diff Routine Manual Differential Routine 01/19/20 00:00 Fosaprepitant Dimeglumine [Emend] 150 mg 0.9 % Sodium Chloride [Ns] 145 ml IV ONCE Heparin Sodium,Porcine Flush 500 unit IVFLUSH ONCE Pegfilgrastim Onpro [Neulasta Onpro] 6 mg SUBCUT ONCE dexAMETHasone sod phosphate/NS [Decadron] 12 mg in 50 ml IV ONCE ondansetron HCL/NS [Zofran] 16 mg in 50 ml IV ONCE 01/21/20 00:00 Cyclophosphamide [Cytoxan] 1,000 mg Cyclophosphamide [Cytoxan] 400 mg 0.9 % Sodium Chloride 250 ml IV ONCE DOXOrubicin HCl [Adriamycin] 94 mg Container,Empty 0 ml IVPUSH ONCE Fosaprepitant Dimeglumine [Emend] 150 mg 0.9 % Sodium Chloride [Ns] 145 ml IV ONCE Heparin Sodium,Porcine Flush 500 unit IVFLUSH ONCE dexAMETHasone sod phosphate/NS [Decadron] 12 mg in 50 ml IV ONCE ondansetron HCL/NS [Zofran] 16 mg in 50 ml IV ONCE riTUXimab [Rituxan] 500 mg riTUXimab [Rituxan] 200 mg 0.9 % Sodium Chloride [Ns] 250 ml IV ONCE vinCRIStine Sulfate [Oncovin] 2 mg Dextrose 5 % [D5w] 50 ml IV ONCE 01/21/20 08:30 Complete Blood Count Auto Diff Routine Comprehensive Met. Panel Routine 01/21/20 10:45 Fosaprepitant Dimeglumine [Emend] 150 mg 0.9 % Sodium Chloride [Ns] 145 ml IV ONCE 01/21/20 12:41 predniSONE 60 mg PO ONCE ONE 01/22/20 16:06 Pegfilgrastim [Neulasta] 6 mg SUBCUT ONCE ONE 01/28/20 09:36 Heparin Sodium,Porcine Flush 500 unit 0.9 % Sodium Chloride Flush [NS Flush] 5 ml IVFLUSH ONCE 01/28/20 11:07 Complete Blood Count Man Dif Routine 01/28/20 11:07 CMP [Comprehensive Met. Panel] Routine 01/28/20 11:25 Heparin Sodium,Porcine Flush 500 unit IVFLUSH .STK-MED ONE 02/04/20 08:20 Heparin Sodium,Porcine Flush 500 unit 0.9 % Sodium Chloride Flush [NS Flush] 5 ml IVFLUSH ONCE 02/04/20 10:42 Heparin Sodium,Porcine Flush 500 unit IVFLUSH .STK-MED ONE 02/04/20 11:10 CMP [Comprehensive Met. Panel] Routine Complete Blood Count Man Dif Routine LDH [Lactate Dehydrogenase] Routine 02/11/20 00:00 Acetaminophen [Tylenol] 650 mg PO ONCE Cyclophosphamide [Cytoxan] 1,000 mg Cyclophosphamide [Cytoxan] 400 mg 0.9 % Sodium Chloride 250 ml IV ONCE DOXOrubicin HCl [Adriamycin] 94 mg Container,Empty 0 ml IVPUSH ONCE Fosaprepitant Dimeglumine [Emend] 150 mg 0.9 % Sodium Chloride [Ns] 145 ml IV ONCE Heparin Sodium,Porcine Flush 500 unit IVFLUSH ONCE Pegfilgrastim Onpro [Neulasta Onpro] 6 mg SUBCUT ONCE dexAMETHasone sod phosphate/NS [Decadron] 12 mg in 50 ml IV ONCE diphenhydrAMINE HCL [Benadryl] 25 mg IVPUSH ONCE ondansetron HCL/NS [Zofran] 16 mg in 50 ml IV ONCE riTUXimab [Rituxan] 500 mg riTUXimab [Rituxan] 200 mg 0.9 % Sodium Chloride [Ns] 250 ml IV ONCE vinCRIStine Sulfate [Oncovin] 2 mg Dextrose 5 % [D5w] 50 ml IV ONCE 02/11/20 08:55 Complete Blood Count Auto Diff Routine Comprehensive Met. Panel Routine 02/11/20 09:13 predniSONE 20 mg PO ONCE ONE 02/11/20 10:39 predniSONE 40 mg PO ONCE ONE 02/12/20 08:13 Pegfilgrastim [Neulasta] 6 mg SUBCUT ONCE ONE 02/18/20 09:50 Heparin Sodium,Porcine Flush 500 unit 0.9 % Sodium Chloride Flush [NS Flush] 5 ml IVFLUSH ONCE 02/18/20 10:44 Heparin Sodium,Porcine Flush 500 unit IVFLUSH .STK-MED ONE 02/18/20 10:56 CMP [Comprehensive [place]. Panel Fast] Routine Complete Blood Count Man Dif Routine 02/25/20 09:05 Heparin Sodium,Porcine Flush 500 unit 0.9 % Sodium Chloride Flush [NS Flush] 5 ml IVFLUSH ONCE 02/25/20 10:46 Heparin Sodium,Porcine Flush 500 unit IVFLUSH .[facility] ONE 02/25/20 11:04 Complete Blood Count Man Dif Routine Profile w/ Glucose [place] [Comprehensive Met. Panel] Routine 03/02/20 00:00 Acetaminophen [Tylenol] 650 mg PO ONCE Cyclophosphamide [Cytoxan] 1,000 mg Cyclophosphamide [Cytoxan] 450 mg 0.9 % Sodium Chloride 250 ml IV ONCE DOXOrubicin HCl [Adriamycin] 96 mg Container,Empty 0 ml IVPUSH ONCE Fosaprepitant Dimeglumine [Emend] 150 mg 0.9 % Sodium Chloride [Ns] 145 ml IV ONCE Heparin Sodium,Porcine Flush 500 unit IVFLUSH ONCE Pegfilgrastim Onpro [Neulasta Onpro] 6 mg SUBCUT ONCE dexAMETHasone sod phosphate/NS [Decadron] 12 mg in 50 ml IV ONCE diphenhydrAMINE HCL [Benadryl] 25 mg IVPUSH ONCE ondansetron HCL/NS [Zofran] 16 mg in 50 ml IV ONCE riTUXimab [Rituxan] 500 mg riTUXimab [Rituxan] 210 mg 0.9 % Sodium Chloride [Ns] 250 ml IV ONCE vinCRIStine Sulfate [Oncovin] 2 mg Dextrose 5 % [D5w] 50 ml IV ONCE 03/02/20 08:30 Complete Blood Count Auto Diff Routine Comprehensive Met. Panel Routine 03/02/20 09:54 predniSONE 60 mg PO ONCE ONE 03/02/20 10:45 Fosaprepitant Dimeglumine [Emend] 150 mg 0.9 % Sodium Chloride [Ns] 145 ml IV ONCE 03/10/20 07:53 Heparin Sodium,Porcine Flush 500 unit 0.9 % Sodium Chloride Flush [NS Flush] 5 ml IVFLUSH ONCE 03/10/20 09:07 Heparin Sodium,Porcine Flush 500 unit IVFLUSH .[facility] ONE 03/10/20 09:25 Complete Blood Count Man Dif Routine Comprehensive Met. Panel Routine LDH [Lactate Dehydrogenase] Routine Laboratory Last Values WBC 3.0 X10*3/uL (4.8-10.8) L 03/10/20 09:25 RBC 3.35 X10*6/uL (4.60-5.80) L 03/10/20 09:25 Hgb 10.9 g/dl (14.0-18.0) L 03/10/20 09:25 Hct 32.4 % (42-52) L 03/10/20 09:25 MCV 96.7 fL (80-98) 03/10/20 09:25 MCH 32.5 pg (27.0-33.0) 03/10/20 09:25 MCHC 33.6 g/dl (31.0-36.0) 03/10/20 09:25 RDW 13.7 % (11.0-16.0) 03/10/20 09:25 Plt Count 160 X10*3/uL (160-400) D 03/10/20 09:25 MPV 10.2 fL (9.4-12.4) 03/10/20 09:25 Immature Gran % (Auto) Cancelled 03/10/20 09:25 Neut % (Auto) Cancelled 03/10/20 09:25 Lymph % (Auto) Cancelled 03/10/20 09:25 [place] % (Auto) Cancelled 03/10/20 09:25 Eos % (Auto) Cancelled 03/10/20 09:25 Baso % (Auto) Cancelled 03/10/20 09:25 Lymph # (Auto) Cancelled 03/10/20 09:25 [place] # (Auto) Cancelled 03/10/20 09:25 Eos # (Auto) Cancelled 03/10/20 09:25 Baso # (Auto) Cancelled 03/10/20 09:25 Abs Immat Gran (auto) Cancelled 03/10/20 09:25 Absolute Neuts (auto) Cancelled 03/10/20 09:25 Absolute Nucleated RBC 0.000 X10*3/uL (0.0-0.012) 03/10/20 09:25 Nucleated RBC % (auto) 0.0 /100WBC (0.0-0.2) 03/10/20 09:25 Neutrophils % (Manual) 21 % (45-73) L 03/10/20 09:25 Band Neutrophils % 12 % (3-5) H 03/10/20 09:25 Lymphocytes % (Manual) 19 % (20-40) L 03/10/20 09:25 Atypical Lymphs % (Man) 1 % (0-6) 02/04/20 11:10 Monocytes % (Manual) 34 % (2-11) H 03/10/20 09:25 Eosinophils % (Manual) 10 % (0-4) H 03/10/20 09:25 Basophils % (Manual) 3 % (0-1) H 03/10/20 09:25 Metamyelocytes % 3 % 02/25/20 11:04 Myelocytes % 1 % 01/14/20 11:15 Promyelocytes % 1 % 03/10/20 09:25 Neutrophils # (Manual) 7.4 X10*3/uL (2.2-7.9) 01/07/20 12:00 Abs Neuts (Manual) 1.0 X10*3/uL (2.2-7.9) L 03/10/20 09:25 Lymphocytes # (Manual) 0.6 X10*3/uL (0.6-4.8) 03/10/20 09:25 Atyp Lymphs # (Manual) 0.1 x10*3/uL 02/04/20 11:10 Monocytes # (Manual) 1.0 X10*3/uL (0.0-1.2) 03/10/20 09:25 Eosinophils # (Manual) 0.3 X10*3/UL (0.0-0.8) 03/10/20 09:25 Basophils # (Manual) 0.1 X10*3/uL (0.0-0.3) 03/10/20 09:25 Metamyelocytes # 0.4 X10*3/uL 02/25/20 11:04 Promyelocytes # 0.2 X10*3/uL 01/14/20 11:15 Platelet Estimate SLIGHTLY DECREASED (NORMAL) 03/10/20 09:25 Plt Morphology Comment NORMAL 03/10/20 09:25 RBC Morphology NOTED 03/10/20 09:25 Hypochromasia 1+ 03/10/20 09:25 Tear Drop Cells 1+ 03/10/20 09:25 Ovalocytes 1+ 03/10/20 09:25 Sodium 137 mmol/L (135-145) 03/10/20 09:25 Potassium 4.3 mmol/l (3.3-5.1) 03/10/20 09:25 Chloride 104 mmol/L (96-108) 03/10/20 09:25 Carbon Dioxide 26 mmol/L (22-29) 03/10/20 09:25 Anion Gap 11 (12-20) L 03/10/20 09:25 BUN 19 mg/dL (9-16) H 03/10/20 09:25 Creatinine 0.72 mg/dL (0.5-1.4) 03/10/20 09:25 Estim Creat Clear Calc 90.4 03/10/20 09:25 Estimated GFR > 60 03/10/20 09:25 Random Glucose 103 mg/dL (60-115) 03/10/20 09:25 Fasting Glucose 90 mg/dL (60-99) 02/18/20 10:56 Calcium 9.3 mg/dL (8.4-10.2) 03/10/20 09:25 Total Bilirubin 0.4 mg/dL (0.0-1.0) 03/10/20 09:25 AST 15 U/L (5-37) 03/10/20 09:25 ALT 16 U/L (0-40) 03/10/20 09:25 Alkaline Phosphatase 84 U/L (39-117) 03/10/20 09:25 Lactate Dehydrogenase 198 U/L (118-273) 03/10/20 09:25 Total Protein 6.2 g/dL (6.5-8.0) L 03/10/20 09:25 Albumin 4.1 g/dL (3.5-5.0) 03/10/20 09:25 Progress Note: A/P (1) Mantle cell lymphoma Status: Acute Assessment and plan: This is a pleasant 69-year-old gentleman, who presented with shortness of breath. He has been noted to have diffuse mediastinal and bilateral hilar adenopathy, internal mammary adenopathy bilateral anterior diaphragmatic lymphadenopathy, retro crural adenopathy and bilateral axillary adenopathy. There is a question of right chest wall mass. Enlarged retroperitoneal lymph nodes, splenomegaly. He also has bilateral pleural effusions. CT scan of the abdomen from September 14 revealed: CT scan of the abdomen from this afternoon revealed: Diffuse lymphadenopathy throughout the abdomen and pelvis. Largest lymph node is a left external iliac lymph node no masses measuring 7 x 8 cm. Polypoid mass in the cecum and proximal ascending colon and second 3 x 3.5 cm polypoid mass in the proximal transverse colon. Enlarged prostate gland. Slightly enlarged spleen. Probable gallstone. Right thoracentesis revealed: B-cell lymphoma. He had left inguinal lymph node biopsy September 14 which revealed: Mantle cell Lymphoma. However further studies including fish testing is pending. Will wait for the final results to decide about treatment. If it is revealed that it is an indolent lymphoma, will treat with bendamustine/ rituximab. If more aggressive, then R-CHOP. Echocardiogram from yesterday morning revealed: Normal LV systolic function with LVEF of 65-70%. Impaired relaxation filling pattern. CT scan of the abdomen from September 14 revealed: Diffuse lymphadenopathy throughout the abdomen and pelvis. Largest lymph node is a left external iliac lymph node no masses measuring 7 x 8 cm. Polypoid mass in the cecum and proximal ascending colon and second 3 x 3.5 cm polypoid mass in the proximal transverse colon. Enlarged prostate gland. Slightly enlarged spleen. Probable gallstone. Biopsy of the left inguinal lymph node from September 14 revealed: Mantle cell lymphoma with Ki-67 proliferative index of approximately 20%. Flow cytometry analysis demonstrates a kappa restricted, mature B-cell lymphoma that coexpresses CD20, CD5 and partial CD10 that is negative for CD23. t(11,14) (IGH/CCND1 translocation) is present by FISH analysis. There is Cyclin D1 overexpression by immunohistochemistry on the biopsy. CD10 expression (as seen in this case) can rarely be seen in mantle cell lymphoma and does not preclude the diagnosis given the morphologic, immunophenotypic and FISH findings. This addendum is issued to report results of additional immunohistochemical analysis. SOX-11 is expressed in the neoplastic cells. PET scan from October 01 revealed: Bilateral internal jugular chain adenopathy, SUV of 6, bilateral supraclavicular nodes, midline suprasternal lymph node, bilateral axillary adenopathy, superior mediastinum, right hemithorax pleural/extrapleural lymphadenopathy, bilateral internal mammary chain, middle mediastinum, bilateral hilum, retrocrural, celiac axis, abdominal retroperitoneal periaortic adenopathy, mesentery adenopathy, right-sided colonic mass/pericolonic lymph nodes SUV 7.8, bilateral bulky pelvic adenopathy, bilateral inguinal adenopathy SUV 5.7. Splenomegaly measures 15 cm without focal splenic lesion. His bone marrow exam was positive: Mildly hypercellular marrow with erythroid hyperplasia and minimal marrow involvement by mantle cell lymphoma. I have elected to treat him with systemic chemotherapy with R-CHOP x 6. So far he has tolerated it extremely well. He has not had any GI upset nor nausea. Has not required any anti emetics. He has completed 3 cycles as of November 18. He had a PET scan: 1. There has been a marked partial metabolic response to therapy of extensive FDG avid lymphadenopathy and FDG avid right colonic wall thickening previously present, as described above. Using the 5 point Deauville scale, this patient w ould be classified as a Deauville score of 4. 2. Cholelithiasis. 3. Vascular calcifications including coronary. He initially completed 6 cycles of R-CHOP. Repeat PET scan from January revealed improvement however there is still residual disease in the supraclavicular area and abdomen. With [place] 4 uptake. His echocardiogram was done and was good. I elected to give him 2 more cycles of R-CHOP to achieve complete remission. He completed cycle 8 on 03/02. The PET scan was done, after completion. It revealed complete metabolic response. He is clinically doing well. Imaging is reassuring. PLAN: Will continue to monitor him. He will return in 3 months for a follow-up visit. Will check imaging after that. He will keep me posted about his progress. Thank you, cc: Dr. Zion Irby. Amilcar Nobles. - Time Spent With Patient Total time spent is greater than 50% in coordination of care (as documented) at patient's floor/unit and/or counseling patient: 25 - 35 minutes
--- NOTE | 2020-04-07 11:43 | MHC.HEMONCMA ---
Patient came in for a follow up today, states that he had his last round of chemo the day before thanksgiving and is feeling well. he is due for a port flush two weeks from today and states he would like to have his blood work done then and not today. Dr Galvan is ok with that.
[2020-04-21 09:48] VITALS: BP 160/72; PULSE 74; RESP 18; TEMP 36.7; O2SAT 98; BMI 31.7
--- NOTE | 2020-04-21 10:05 | MHC.HEMONC ---
Patient here for port flush. Labs drawn via port. Port flushed. Follow-up given.
[2020-04-21 10:13] LABS: Basophils Percent Auto 0.3 % (0-2); Eosinophils Absolute Auto 0.3 X10*3/uL (0.0-0.4); Eosinophils Percent Auto 4.7 % (0-4); Hematocrit 38.1 % (42-52); Hemoglobin 12.6 g/dl (14.0-18.0); Imm Gran Abs Auto 0.01 X10*3/uL (0.00-0.03); Imm Gran Pct Auto 0.2 % (0.0-0.4); Lymphocytes Absolute Auto 0.7 X10*3/uL (1.2-4.9); Lymphocytes Percent Auto 10.6 % (20-40); MANUAL DIFF FLAG SCAN; Mean Corpuscular HGB Conc 33.1 g/dl (31.0-36.0); Mean Corpuscular Hemoglobin 32.1 pg (27.0-33.0); Mean Corpuscular Volume 97.2 fL (80-98); Mean Platelet Volume 9.7 fL (9.4-12.4); Monocytes Absolute Auto 0.8 X10*3/uL (0.1-1.2); Monocytes Percent Auto 13.5 % (2-11); Neutrophils Absolute Auto 4.4 X10*3/uL (2.0-8.3); Neutrophils Percent Auto 70.7 % (45-73); Platelet Count 231 X10*3/uL (160-400); Red Blood Count 3.92 X10*6/uL (4.60-5.80); Red Cell Distribution Width 12.9 % (11.0-16.0); SCAN SMEAR FLAG 1; White Blood Count 6.2 X10*3/uL (4.8-10.8)
[2020-04-21 10:39] LABS: Alanine Aminotransferase 22 U/L (0-40); Albumin Level 4.2 g/dL (3.5-5.0); Alkaline Phosphatase 77 U/L (39-117); Anion Gap 13 (12-20); Aspartate Amino Transferase 20 U/L (5-37); Bilirubin Total 0.5 mg/dL (0.0-1.0); Blood Urea Nitrogen 19 mg/dL (9-16); Calcium 9.1 mg/dL (8.4-10.2); Carbon Dioxide 25 mmol/L (22-29); Chloride 106 mmol/L (96-108); Creatinine Clr Calc Pharmacy 85.7; Estimated Glomerular Filt Rate > 60; Glucose Random 110 mg/dL (60-115); Lactate Dehydrogenase 184 U/L (118-273); Potassium 4.2 mmol/l (3.3-5.1); Sodium 140 mmol/L (135-145); Total Protein 6.3 g/dL (6.5-8.0)
[2020-04-21 10:59] LABS: SLIDE REVIEW VERIFIED
[2020-06-09 10:02] VITALS: BP 174/77; PULSE 78; RESP 18; TEMP 37; O2SAT 95; BMI 32.2
[2020-06-09 10:40] LABS: MANUAL DIFF FLAG NO
--- NOTE | 2020-06-09 10:45 | MHC.HEMONC ---
Port flushed as ordered. Labs drawn. Follow-up given.
[2020-06-09 10:47] LABS: Basophils Percent Auto 0.4 % (0-2); Eosinophils Absolute Auto 0.2 X10*3/uL (0.0-0.4); Eosinophils Percent Auto 2.9 % (0-4); Hematocrit 37.9 % (42-52); Imm Gran Abs Auto 0.02 X10*3/uL (0.00-0.03); Imm Gran Pct Auto 0.3 % (0.0-0.4); Lymphocytes Percent Auto 13.7 % (20-40); Mean Corpuscular HGB Conc 34.3 g/dl (31.0-36.0); Mean Corpuscular Hemoglobin 32.6 pg (27.0-33.0); Mean Platelet Volume 9.7 fL (9.4-12.4); Monocytes Absolute Auto 0.8 X10*3/uL (0.1-1.2); Monocytes Percent Auto 11.6 % (2-11); Neutrophils Percent Auto 71.1 % (45-73); Platelet Count 253 X10*3/uL (160-400); Red Blood Count 3.99 X10*6/uL (4.60-5.80); Red Cell Distribution Width 11.8 % (11.0-16.0)
[2020-06-09 11:37] LABS: Alanine Aminotransferase 19 U/L (0-40); Albumin Level 4.1 g/dL (3.5-5.0); Alkaline Phosphatase 74 U/L (39-117); Anion Gap 11 (12-20); Aspartate Amino Transferase 18 U/L (5-37); Bilirubin Total 0.3 mg/dL (0.0-1.0); Blood Urea Nitrogen 28 mg/dL (9-16); Calcium 9.2 mg/dL (8.4-10.2); Carbon Dioxide 25 mmol/L (22-29); Chloride 108 mmol/L (96-108); Creatinine Clr Calc Pharmacy 86.4; Estimated Glomerular Filt Rate > 60; Glucose Random 99 mg/dL (60-115); Lactate Dehydrogenase 171 U/L (118-273); Potassium 4.5 mmol/L (3.3-5.1); Sodium 139 mmol/L (135-145); Total Protein 6.3 g/dL (6.5-8.0)
--- NOTE | 2020-06-09 12:53 | MHC.HEMONCSW ---
PATIENT HERE ONLY FOR PORT FLUSH. REPORTS COPING WELL, HAIR HAS GROWN BACK!!!! DENIES ANY STRESS OR CONCERNS. EDUCATION AND SUPPORT PROVIDED.
[2020-07-28 09:08] VITALS: BP 178/83; PULSE 88; RESP 18; TEMP 37.2; O2SAT 98; BMI 32.4
[2020-09-08 09:49] VITALS: BP 180/94; PULSE 80; RESP 12; TEMP 36.9; O2SAT 96; BMI 32.5
--- NOTE | 2020-09-08 10:18 | P.PNHO_ITS ---
Medical Summary - Medical Summary Date of Service: 09/08/20 Chief complaint: Follow-up for: Mantle cell lymphoma. Medical Summary: DIAGNOSIS: Mantle cell lymphoma. CURRENT THERAPY: Start R-CHOP, October 07. Completed cycle 3 on November 18. Cycle 07:02/10. Completed CYCLE 8 on 03/02. Interval History Interval history: This is a pleasant 70 year-old gentleman, here for a follow-up visit. He tells me that the urologist added a couple of new medications: Ascorbic acid 1 g daily and methenamine 1 g daily. He has been doing extremely well. He denies much easy fatigability. Sometimes in the afternoon he has to take a nap however otherwise he has been walking 3 to 4 miles 3 to 4 times a week. He denies any fever nor chills. No headache. Sometimes he feels a bit wobbly if he turns too fast. He did have an accident last year. He denies chest pain or trouble breathing. He denies any nausea nor vomiting. He denies abdominal pain. No heartburn indigestion. Bowels are working without any gross blood in it. He enjoys a good appetite. He has gained weight. He has noticed some tingling in his toes. Nothing in his upper extremities. He is in good spirits. Does not feel too motivated. Rest of the review of syst ems is unremarkable. Review of Systems - Constitutional Reports no additional constitutional complaints - Eyes Reports no additional eye complaints - ENT Reports no additional ear, nose, mouth, and throat complaints - Cardiovascular Reports no additional cardiovascular complaints - Respiratory Reports no additional respiratory complaints - Gastrointestinal Reports no additional gastrointestinal complaints - Genitourinary Genitourinary: Reports no additional male genitourinary complaints - Musculoskeletal Reports no additional musculoskeletal complaints - Integumentary/Breasts Skin/Breast: Reports no additional skin complaints - Neurologic Reports no additional neurologic complaints - Psychiatric Reports no additional psychiatric complaints - Endocrine Reports no additional endocrine complaints - Hematologic/Lymphatic Reports no additional hematologic/lymphatic complaints - Allergic/Immunologic Reports no additional allergic/immunologic complaints [facility] Medical History: Medical History (Last Reviewed 09/08/20 @ 09:50 by Gayle Patel) Hx of pleural effusion Hyperlipidemia Hypertension Functional capacity: independent ambulation Patient : No Family History: Family History (Last Reviewed 09/08/20 @ 09:50 by Gayle Patel) Father Carotid artery stenosis Mother Kidney failure Surgical History: Surgical History (Last Reviewed 09/08/20 @ 09:50 by Gayle Patel) History of medial meniscus repair of right knee Social History: Social History (Last Reviewed 09/08/20 @ 09:50 by Gayle Patel) Living Situation History: Are you a primary acute care nursing assistant to a significant other at home: No Alcohol History: Alcohol intake: current Alcohol History Details: Alcohol intake frequency: a few times a week Substance Use History: Use of substances other than those prescribed or required for medical reasons : No Domestic Abuse History: Have you been hit, kicked, punched, or otherwise hurt by someone within the past year? If so, by whom?: No Do you feel safe in your current relationship?: No Advance Directives: Advance Directives: Yes Advance Directives on File: Yes Advance Directives Date on File: 12/31/19 Nutrition Assessment: Recently lost weight without trying: No Eating poorly because of decreased appetite: No Nutrition Risks: No Nutritional Risk Patient : No Poor oral hygiene: No Oncology Screenings - ECOG Performance Status ECOG Performance Status: 0 Home Medications and Allergies Home Medications Medication Instructions Recorded Confirmed Type ferrous sulfate [iron] 325 mg PO DAILY 01/07/20 03/02/20 History lisinopril 10 mg PO DAILY 01/07/20 03/02/20 History multivitamin [Multi-Vitamin] 1 tab PO DAILY 01/07/20 03/02/20 History simvastatin 80 mg PO BEDTIME 01/07/20 03/02/20 History Allergies Allergy/AdvReac Type Severity Reaction Status Date / Time No Known Allergies Allergy Verified 09/02/20 14:31 Exam Vital signs: Vital Signs Temp 98.5 F 09/08/20 09:49 Pulse 80 09/08/20 09:49 Resp 12 09/08/20 09:49 BP 180/94 H 09/08/20 09:49 Pulse Ox 96 09/08/20 09:49 Intake & Output 09/07/20 09/08/20 09/08/20 18:59 06:59 18:59 Other: Weight 85.9 kg [place] Weight in Grams [id number] Weight 85.9 kg Body Mass Index 32.5 - Constitutional Present: no acute distress - Routine HEENT Exam Head: Present: normal inspection Eye: Present: normal appearance ENT: Present: mucous membranes moist - Routine Neck Exam Present: full ROM - Routine Respiratory Exam Present: CTAB - Routine Cardiovascular Exam Cardiovascular: Present: RRR, S1, S2 - Routine Abdominal Exam Present: soft, nontender - Routine Extremities Exam Present: nontender - Routine Back/Spine/Pelvis Exam Back/Spine: Present: full ROM - Routine Skin Exam Present: intact - Routine Neurological Exam Present: alert, oriented X3 - Detailed Neurological Exam: Coma Scale Eye Opening: Spontaneous (4) - Routine Psychiatric Exam Present: normal affect Data - Labs CBC & Chem 7: 09/08/20 10:14 09/08/20 10:14 Labs: 01/07/20 11:45 Heparin Sodium,Porcine Flush 500 unit 0.9 % Sodium Chloride Flush [NS Flush] 5 ml IVFLUSH ONCE 01/07/20 11:56 Heparin Sodium,Porcine Flush 500 unit IVFLUSH .STK-MED ONE 01/07/20 12:00 Complete Blood Count Man Dif Stat Profile w/ Glucose [place] [Comprehensive Met. Panel] Stat 01/14/20 00:01 Heparin Sodium,Porcine Flush 500 unit 0.9 % Sodium Chloride Flush [NS Flush] 5 ml IVFLUSH ONCE 01/14/20 11:01 Heparin Sodium,Porcine Flush 500 unit IVFLUSH .STK-MED ONE 01/14/20 11:15 CMP [Comprehensive Met. Panel] Routine Complete Blood Count no Diff Routine Manual Differential Routine 01/19/20 00:00 Fosaprepitant Dimeglumine [Emend] 150 mg 0.9 % Sodium Chloride [Ns] 145 ml IV ONCE Heparin Sodium,Porcine Flush 500 unit IVFLUSH ONCE Pegfilgrastim Onpro [Neulasta Onpro] 6 mg SUBCUT ONCE dexAMETHasone sod phosphate/NS [Decadron] 12 mg in 50 ml IV ONCE ondansetron HCL/NS [Zofran] 16 mg in 50 ml IV ONCE 01/21/20 00:00 Cyclophosphamide [Cytoxan] 1,000 mg Cyclophosphamide [Cytoxan] 400 mg 0.9 % Sodium Chloride 250 ml IV ONCE DOXOrubicin HCl [Adriamycin] 94 mg Container,Empty 0 ml IVPUSH ONCE Fosaprepitant Dimeglumine [Emend] 150 mg 0.9 % Sodium Chloride [Ns] 145 ml IV ONCE Heparin Sodium,Porcine Flush 500 unit IVFLUSH ONCE dexAMETHasone sod phosphate/NS [Decadron] 12 mg in 50 ml IV ONCE ondansetron HCL/NS [Zofran] 16 mg in 50 ml IV ONCE riTUXimab [Rituxan] 500 mg riTUXimab [Rituxan] 200 mg 0.9 % Sodium Chloride [Ns] 250 ml IV ONCE vinCRIStine Sulfate [Oncovin] 2 mg Dextrose 5 % [D5w] 50 ml IV ONCE 01/21/20 08:30 Complete Blood Count Auto Diff Routine Comprehensive Met. Panel Routine 01/21/20 10:45 Fosaprepitant Dimeglumine [Emend] 150 mg 0.9 % Sodium Chloride [Ns] 145 ml IV ONCE 01/21/20 12:41 predniSONE 60 mg PO ONCE ONE 01/22/20 16:06 Pegfilgrastim [Neulasta] 6 mg SUBCUT ONCE ONE 01/28/20 09:36 Heparin Sodium,Porcine Flush 500 unit 0.9 % Sodium Chloride Flush [NS Flush] 5 ml IVFLUSH ONCE 01/28/20 11:07 Complete Blood Count Man Dif Routine 01/28/20 11:07 CMP [Comprehensive Met. Panel] Routine 01/28/20 11:25 Heparin Sodium,Porcine Flush 500 unit IVFLUSH .STK-MED ONE 02/04/20 08:20 Heparin Sodium,Porcine Flush 500 unit 0.9 % Sodium Chloride Flush [NS Flush] 5 ml IVFLUSH ONCE 02/04/20 10:42 Heparin Sodium,Porcine Flush 500 unit IVFLUSH .STK-MED ONE 02/04/20 11:10 CMP [Comprehensive Met. Panel] Routine Complete Blood Count Man Dif Routine LDH [Lactate Dehydrogenase] Routine 02/11/20 00:00 Acetaminophen [Tylenol] 650 mg PO ONCE Cyclophosphamide [Cytoxan] 1,000 mg Cyclophosphamide [Cytoxan] 400 mg 0.9 % Sodium Chloride 250 ml IV ONCE DOXOrubicin HCl [Adriamycin] 94 mg Container,Empty 0 ml IVPUSH ONCE Fosaprepitant Dimeglumine [Emend] 150 mg 0.9 % Sodium Chloride [Ns] 145 ml IV ONCE Heparin Sodium,Porcine Flush 500 unit IVFLUSH ONCE Pegfilgrastim Onpro [Neulasta Onpro] 6 mg SUBCUT ONCE dexAMETHasone sod phosphate/NS [Decadron] 12 mg in 50 ml IV ONCE diphenhydrAMINE HCL [Benadryl] 25 mg IVPUSH ONCE ondansetron HCL/NS [Zofran] 16 mg in 50 ml IV ONCE riTUXimab [Rituxan] 500 mg riTUXimab [Rituxan] 200 mg 0.9 % Sodium Chloride [Ns] 250 ml IV ONCE vinCRIStine Sulfate [Oncovin] 2 mg Dextrose 5 % [D5w] 50 ml IV ONCE 02/11/20 08:55 Complete Blood Count Auto Diff Routine Comprehensive Met. Panel Routine 02/11/20 09:13 predniSONE 20 mg PO ONCE ONE 02/11/20 10:39 predniSONE 40 mg PO ONCE ONE 02/12/20 08:13 Pegfilgrastim [Neulasta] 6 mg SUBCUT ONCE ONE 02/18/20 09:50 Heparin Sodium,Porcine Flush 500 unit 0.9 % Sodium Chloride Flush [NS Flush] 5 ml IVFLUSH ONCE 02/18/20 10:44 Heparin Sodium,Porcine Flush 500 unit IVFLUSH .STK-MED ONE 02/18/20 10:56 CMP [Comprehensive [place]. Panel Fast] Routine Complete Blood Count Man Dif Routine 02/25/20 09:05 Heparin Sodium,Porcine Flush 500 unit 0.9 % Sodium Chloride Flush [NS Flush] 5 ml IVFLUSH ONCE 02/25/20 10:46 Heparin Sodium,Porcine Flush 500 unit IVFLUSH .STK-MED ONE 02/25/20 11:04 Complete Blood Count Man Dif Routine Profile w/ Glucose [place] [Comprehensive Met. Panel] Routine 03/02/20 00:00 Acetaminophen [Tylenol] 650 mg PO ONCE Cyclophosphamide [Cytoxan] 1,000 mg Cyclophosphamide [Cytoxan] 450 mg 0.9 % Sodium Chloride 250 ml IV ONCE DOXOrubicin HCl [Adriamycin] 96 mg Container,Empty 0 ml IVPUSH ONCE Fosaprepitant Dimeglumine [Emend] 150 mg 0.9 % Sodium Chloride [Ns] 145 ml IV ONCE Heparin Sodium,Porcine Flush 500 unit IVFLUSH ONCE Pegfilgrastim Onpro [Neulasta Onpro] 6 mg SUBCUT ONCE dexAMETHasone sod phosphate/NS [Decadron] 12 mg in 50 ml IV ONCE diphenhydrAMINE HCL [Benadryl] 25 mg IVPUSH ONCE ondansetron HCL/NS [Zofran] 16 mg in 50 ml IV ONCE riTUXimab [Rituxan] 500 mg riTUXimab [Rituxan] 210 mg 0.9 % Sodium Chloride [Ns] 250 ml IV ONCE vinCRIStine Sulfate [Oncovin] 2 mg Dextrose 5 % [D5w] 50 ml IV ONCE 03/02/20 08:30 Complete Blood Count Auto Diff Routine Comprehensive Met. Panel Routine 03/02/20 09:54 predniSONE 60 mg PO ONCE ONE 03/02/20 10:45 Fosaprepitant Dimeglumine [Emend] 150 mg 0.9 % Sodium Chloride [Ns] 145 ml IV ONCE 03/10/20 07:53 Heparin Sodium,Porcine Flush 500 unit 0.9 % Sodium Chloride Flush [NS Flush] 5 ml IVFLUSH ONCE 03/10/20 09:07 Heparin Sodium,Porcine Flush 500 unit IVFLUSH .STK-MED ONE 03/10/20 09:25 Complete Blood Count Man Dif Routine Comprehensive Met. Panel Routine LDH [Lactate Dehydrogenase] Routine 04/21/20 08:18 Heparin Sodium,Porcine Flush 500 unit 0.9 % Sodium Chloride Flush [NS Flush] 5 ml IVFLUSH ONCE 04/21/20 09:41 Heparin Sodium,Porcine Flush 500 unit IVFLUSH .K-MED ONE 04/21/20 09:50 Complete Blood Count Auto Diff Routine Comprehensive Met. Panel Routine LDH [Lactate Dehydrogenase] Routine SLIDE REVIEW Routine 06/09/20 08:48 Heparin Sodium,Porcine Flush 500 unit 0.9 % Sodium Chloride Flush [NS Flush] 5 ml IVFLUSH ONCE 06/09/20 09:56 Heparin Sodium,Porcine Flush 500 unit IVFLUSH .K-MED ONE 06/09/20 10:35 CBC W/AUTO DIFF [Complete Blood Count Auto Diff] Routine CMP [Comprehensive Met. Panel] Routine LDH [Lactate Dehydrogenase] Routine 07/28/20 08:20 Heparin Sodium,Porcine Flush 500 unit 0.9 % Sodium Chloride Flush [NS Flush] 5 ml IVFLUSH ONCE 07/28/20 09:23 Heparin Sodium,Porcine Flush 500 unit IVFLUSH .STK-MED ONE 09/08/20 08:19 Heparin Sodium,Porcine Flush 500 unit 0.9 % Sodium Chloride Flush [NS Flush] 5 ml IVFLUSH ONCE 09/08/20 09:55 Heparin Sodium,Porcine Flush 500 unit IVFLUSH .[facility] ONE Laboratory Last Values WBC 7.0 X10*3/uL (4.8-10.8) 06/09/20 10:35 RBC 3.99 X10*6/uL (4.60-5.80) L 06/09/20 10:35 Hgb 13.0 g/dl (14.0-18.0) L 06/09/20 10:35 Hct 37.9 % (42-52) L 06/09/20 10:35 MCV 95.0 fL (80-98) 06/09/20 10:35 MCH 32.6 pg (27.0-33.0) 06/09/20 10:35 MCHC 34.3 g/dl (31.0-36.0) 06/09/20 10:35 RDW 11.8 % (11.0-16.0) 06/09/20 10:35 Plt Count 253 X10*3/uL (160-400) 06/09/20 10:35 MPV 9.7 fL (9.4-12.4) 06/09/20 10:35 Immature Gran % (Auto) 0.3 % (0.0-0.4) 06/09/20 10:35 Neut % (Auto) 71.1 % (45-73) 06/09/20 10:35 Lymph % (Auto) 13.7 % (20-40) L 06/09/20 10:35 [place] % (Auto) 11.6 % (2-11) H 06/09/20 10:35 Eos % (Auto) 2.9 % (0-4) 06/09/20 10:35 Baso % (Auto) 0.4 % (0-2) 06/09/20 10:35 Lymph # (Auto) 1.0 X10*3/uL (1.2-4.9) L 06/09/20 10:35 [place] # (Auto) 0.8 X10*3/uL (0.1-1.2) 06/09/20 10:35 Eos # (Auto) 0.2 X10*3/uL (0.0-0.4) 06/09/20 10:35 Baso # (Auto) 0.0 X10*3/uL (0.0-0.2) 06/09/20 10:35 Abs Immat Gran (auto) 0.02 X10*3/uL (0.00-0.03) 06/09/20 10:35 Absolute Neuts (auto) 5.0 X10*3/uL (2.0-8.3) 06/09/20 10:35 Absolute Nucleated RBC 0.000 X10*3/uL (0.0-0.012) 06/09/20 10:35 Nucleated RBC % (auto) 0.0 /100WBC (0.0-0.2) 06/09/20 10:35 Neutrophils % (Manual) 21 % (45-73) L 03/10/20 09:25 Band Neutrophils % 12 % (3-5) H 03/10/20 09:25 Lymphocytes % (Manual) 19 % (20-40) L 03/10/20 09:25 Atypical Lymphs % (Man) 1 % (0-6) 02/04/20 11:10 Monocytes % (Manual) 34 % (2-11) H 03/10/20 09:25 Eosinophils % (Manual) 10 % (0-4) H 03/10/20 09:25 Basophils % (Manual) 3 % (0-1) H 03/10/20 09:25 Metamyelocytes % 3 % 02/25/20 11:04 Myelocytes % 1 % 01/14/20 11:15 Promyelocytes % 1 % 03/10/20 09:25 Neutrophils # (Manual) 7.4 X10*3/uL (2.2-7.9) 01/07/20 12:00 Abs Neuts (Manual) 1.0 X10*3/uL (2.2-7.9) L 03/10/20 09:25 Lymphocytes # (Manual) 0.6 X10*3/uL (0.6-4.8) 03/10/20 09:25 Atyp Lymphs # (Manual) 0.1 x10*3/uL 02/04/20 11:10 Monocytes # (Manual) 1.0 X10*3/uL (0.0-1.2) 03/10/20 09:25 Eosinophils # (Manual) 0.3 X10*3/UL (0.0-0.8) 03/10/20 09:25 Basophils # (Manual) 0.1 X10*3/uL (0.0-0.3) 03/10/20 09:25 Metamyelocytes # 0.4 X10*3/uL 02/25/20 11:04 Promyelocytes # 0.2 X10*3/uL 01/14/20 11:15 Platelet Estimate SLIGHTLY DECREASED (NORMAL) 03/10/20 09:25 Plt Morphology Comment NORMAL 03/10/20 09:25 RBC Morphology NOTED 03/10/20 09:25 Hypochromasia 1+ 03/10/20 09:25 Tear Drop Cells 1+ 03/10/20 09:25 Ovalocytes 1+ 03/10/20 09:25 Smear Tech's Comments VERIFIED 04/21/20 09:50 Sodium 139 mmol/L (135-145) 06/09/20 10:35 Potassium 4.5 mmol/L (3.3-5.1) 06/09/20 10:35 Chloride 108 mmol/L (96-108) 06/09/20 10:35 Carbon Dioxide 25 mmol/L (22-29) 06/09/20 10:35 Anion Gap 11 (12-20) L 06/09/20 10:35 BUN 28 mg/dL (9-16) H 06/09/20 10:35 Creatinine 0.76 mg/dL (0.5-1.4) 06/09/20 10:35 Estim Creat Clear Calc 86.4 06/09/20 10:35 Estimated GFR > 60 06/09/20 10:35 Random Glucose 99 mg/dL (60-115) 06/09/20 10:35 Fasting Glucose 90 mg/dL (60-99) 02/18/20 10:56 Calcium 9.2 mg/dL (8.4-10.2) 06/09/20 10:35 Total Bilirubin 0.3 mg/dL (0.0-1.0) 06/09/20 10:35 AST 18 U/L (5-37) 06/09/20 10:35 ALT 19 U/L (0-40) 06/09/20 10:35 Alkaline Phosphatase 74 U/L (39-117) 06/09/20 10:35 Lactate Dehydrogenase 171 U/L (118-273) 06/09/20 10:35 Total Protein 6.3 g/dL (6.5-8.0) L 06/09/20 10:35 Albumin 4.1 g/dL (3.5-5.0) 06/09/20 10:35 Progress Note: A/P (1) Mantle cell lymphoma Status: Acute Assessment and plan: This is a pleasant 69-year-old gentleman, who presented with shortness of breath. He has been noted to have diffuse mediastinal and bilateral hilar adenopathy, internal mammary adenopathy bilateral anterior diaphragmatic lymphadenopathy, retro crural adenopathy and bilateral axillary adenopathy. There is a question of right chest wall mass. Enlarged retroperitoneal lymph nodes, splenomegaly. He also has bilateral pleural effusions. CT scan of the abdomen from September 14 revealed: CT scan of the abdomen from this afternoon revealed: Diffuse lymphadenopathy throughout the abdomen and pelvis. Largest lymph node is a left external iliac lymph node no masses measuring 7 x 8 cm. Polypoid mass in the cecum and proximal ascending colon and second 3 x 3.5 cm polypoid mass in the proximal transverse colon. Enlarged prostate gland. Slightly enlarged spleen. Probable gallstone. Right thoracentesis revealed: B-cell lymphoma. He had left inguinal lymph node biopsy September 14 which revealed: Mantle cell Lymphoma. However further studies including fish testing is pending. Will wait for the final results to decide about treatment. If it is revealed that it is an indolent lymphoma, will treat with bendamustine/ rituximab. If more aggressive, then R-CHOP. Echocardiogram from yesterday morning revealed: Normal LV systolic function with LVEF of 65-70%. Impaired relaxation filling pattern. CT scan of the abdomen from September 14 revealed: Diffuse lymphadenopathy throughout the abdomen and pelvis. Largest lymph node is a left external iliac lymph node no masses measuring 7 x 8 cm. Polypoid mass in the cecum and proximal ascending colon and second 3 x 3.5 cm polypoid mass in the proximal transverse colon. Enlarged prostate gland. Slightly enlarged spleen. Probable gallstone. Biopsy of the left inguinal lymph node from September 14 revealed: Mantle cell lymphoma with Ki-67 proliferative index of approximately 20%. Flow cytometry analysis demonstrates a kappa restricted, mature B-cell lymphoma that coexpresses CD20, CD5 and partial CD10 that is negative for CD23. t(11,14) (IGH/CCND1 translocation) is present by FISH analysis. There is Cyclin D1 overexpression by immunohistochemistry on the biopsy. CD10 expression (as seen in this case) can rarely be seen in mantle cell lymphoma and does not preclude the diagnosis given the morphologic, immunophenotypic and FISH findings. This addendum is issued to report results of additional immunohistochemical analysis. SOX-11 is expressed in the neoplastic cells. PET scan from October 01 revealed: Bilateral internal jugular chain adenopathy, SUV of 6, bilateral supraclavicular nodes, midline suprasternal lymph node, bilateral axillary adenopathy, superior mediastinum, right hemithorax pleural/extrapleural lymphadenopathy, bilateral internal mammary chain, middle mediastinum, bilateral hilum, retrocrural, celiac axis, abdominal retroperitoneal periaortic adenopathy, mesentery adenopathy, right-sided colonic mass/pericolonic lymph nodes SUV 7.8, bilateral bulky pelvic adenopathy, bilateral inguinal adenopathy SUV 5.7. Splenomegaly measures 15 cm without focal splenic lesion. His bone marrow exam was positive: Mildly hypercellular marrow with erythroid hyperplasia and minimal marrow involvement by mantle cell lymphoma. I have elected to treat him with systemic chemotherapy with R-CHOP x 6. So far he has tolerated it extremely well. He has not had any GI upset nor nausea. Has not required any anti emetics. He has completed 3 cycles as of November 18. He had a PET scan: 1. There has been a marked partial metabolic response to therapy of extensive FDG avid lymphadenopathy and FDG avid right colonic wall thickening previously present, as described above. Using the 5 point Deauville scale, this patient would be classified as a Deauville score of 4. 2. Cholelithiasis. 3. Vascular calcifications including coronary. He initially completed 6 cycles of R-CHOP. Repeat PET scan from January revealed improvement however there is still residual disease in the supraclavicular area and abdomen. With [place] 4 uptake. His echocardiogram was done and was good. I elected to give him 2 more cycles of R-CHOP to achieve complete remission. He completed cycle 8 on 03/02. The PET scan was done, after completion. It revealed complete metabolic response. He is clinically doing well. PLAN: Will continue to monitor him. Will recheck imaging now. If everything is fine will remove the Port-A-Cath. He will return in 3 months for a follow-up visit. He will keep me posted about his progress. Thank you, cc: Dr. Zion Irby. Amilcar Nobles. - Time Spent With Patient Total time spent is greater than 50% in coordination of care (as documented) at patient's floor/unit and/or counseling patient: 25 - 35 minutes
[2020-09-08 10:21] LABS: MANUAL DIFF FLAG NO
[2020-09-08 10:25] LABS: Basophils Percent Auto 0.5 % (0-2); Eosinophils Absolute Auto 0.3 X10*3/uL (0.0-0.4); Eosinophils Percent Auto 3.4 % (0-4); Hematocrit 37.2 % (42-52); Hemoglobin 12.8 g/dl (14.0-18.0); Imm Gran Abs Auto 0.05 X10*3/uL (0.00-0.03); Imm Gran Pct Auto 0.6 % (0.0-0.4); Lymphocytes Absolute Auto 1.1 X10*3/uL (1.2-4.9); Mean Corpuscular HGB Conc 34.4 g/dl (31.0-36.0); Mean Corpuscular Hemoglobin 32.7 pg (27.0-33.0); Mean Corpuscular Volume 94.9 fL (80-98); Mean Platelet Volume 9.7 fL (9.4-12.4); Monocytes Absolute Auto 0.8 X10*3/uL (0.1-1.2); Monocytes Percent Auto 9.8 % (2-11); Neutrophils Absolute Auto 5.6 X10*3/uL (2.0-8.3); Neutrophils Percent Auto 71.7 % (45-73); Platelet Count 255 X10*3/uL (160-400); Red Blood Count 3.92 X10*6/uL (4.60-5.80); White Blood Count 7.8 X10*3/uL (4.8-10.8)
[2020-09-08 10:53] LABS: Alanine Aminotransferase 23 U/L (0-40); Albumin Level 4.3 g/dL (3.5-5.0); Alkaline Phosphatase 76 U/L (39-117); Anion Gap 11 (12-20); Aspartate Amino Transferase 20 U/L (5-37); Bilirubin Total 0.5 mg/dL (0.0-1.0); Blood Urea Nitrogen 25 mg/dL (9-16); Calcium 9.5 mg/dL (8.4-10.2); Carbon Dioxide 25 mmol/L (22-29); Chloride 106 mmol/L (96-108); Creatinine Clr Calc Pharmacy 83.5; Estimated Glomerular Filt Rate > 60; Glucose Random 107 mg/dL (60-115); Lactate Dehydrogenase 180 U/L (118-273); Potassium 4.4 mmol/L (3.3-5.1); Sodium 138 mmol/L (135-145); Total Protein 6.5 g/dL (6.5-8.0)
--- NOTE | 2020-09-08 12:13 | MHC.HEMONCMA ---
Pt presents to f/u on lymphoma/hodgkins. History reviewed.
--- NOTE | 2020-09-26 12:40 | MHC.HEMONC ---
pt had recent PET which showed one area of concern in abdomen. Dr Galvan would like RAD ONC referral at [facility]. Laurie BRIGGS advised for booking.
[2020-10-20 11:14] VITALS: BP 153/70; PULSE 81; RESP 18; TEMP 36.7; O2SAT 96; BMI 32.3
--- NOTE | 2020-10-20 12:56 | MHC.HEMONC ---
Port accessed with positive blood return and flushed with Heparin. Patient tolerated well. Follow up appointment and next port flush scheduled for 12/01/2020.
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
--- NOTE | 2020-11-16 11:55 | HO.HEMONCPA ---
[facility] FOR PET-CT SCAN APPROVED. AUTH#[id number]. EFF 11/16/20 - 05/15/21. DOCUMENT SCANNED IN THE CHART
--- NOTE | 2020-11-16 12:26 | MHC.HEMONCMA ---
[facility] PET form along with recent CT abdomen/pelvis and PET scan report from 01/2020 was faxed to [facility]. Awaiting a date/time from them. They do take 72 hours to process form, I will call Saturday11/21/2020 to check in.
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
[2020-12-02 10:30] VITALS: BP 188/85; PULSE 82; RESP 16; TEMP 36.1; O2SAT 97; BMI 33.2
[2020-12-02 11:14] LABS: Baso%MD 0.4 %; Eos%MD 2.6 %; IG%MD 0.6 %; Lymph%MD 14.3 %; Mean Corpuscular HGB Conc 34.2 g/dl (31.0-36.0); Mean Corpuscular Hemoglobin 32.3 pg (27.0-33.0); Mean Corpuscular Volume 94.5 fL (80-98); Mean Platelet Volume 9.6 fL (9.4-12.4); Mono%MD 8.8 %; Neut%MD 73.3 %; Platelet Count 252 X10*3/uL (160-400); Red Blood Count 4.02 X10*6/uL (4.60-5.80); Red Cell Distribution Width 11.9 % (11.0-16.0)
--- NOTE | 2020-12-02 11:16 | MHC.HEMONC ---
faslodex 500mg give right/left gluet. patient janet. well follow on 12/16 for cycle 2
[2020-12-02 11:44] LABS: Alanine Aminotransferase 20 U/L (0-40); Albumin Level 4.2 g/dL (3.5-5.0); Alkaline Phosphatase 77 U/L (39-117); Anion Gap 11 (12-20); Aspartate Amino Transferase 18 U/L (5-37); Bilirubin Total 0.4 mg/dL (0.0-1.0); Blood Urea Nitrogen 18 mg/dL (9-16); Calcium 9.2 mg/dL (8.4-10.2); Carbon Dioxide 25 mmol/L (22-29); Chloride 108 mmol/L (96-108); Creatinine Clr Calc Pharmacy 82.3; Estimated Glomerular Filt Rate > 60; Glucose Random 109 mg/dL (60-115); Lactate Dehydrogenase 179 U/L (118-273); Potassium 4.3 mmol/L (3.3-5.1); Sodium 140 mmol/L (135-145); Total Protein 6.4 g/dL (6.5-8.0)
[2020-12-02 11:53] LABS: Band Neutrophils Percent 1 % (3-5); Basophils Abs Manual 0.1 X10*3/uL (0.0-0.3); Basophils Percent Manual 1 % (0-1); Lymphocytes Absolute Manual 1.4 X10*3/uL (0.6-4.8); Lymphocytes Percent Manual 17 % (20-40); Monocytes Absolute Manual 0.2 X10*3/uL (0.0-1.2); Monocytes Percent Manual 3 % (2-11); Neutrophils Absolute Manual 6.3 X10*3/uL (2.2-7.9); Neutrophils Percent Manual 78 % (45-73)
[2020-12-02 11:54] LABS: Hypochromasia 1+ (5-14) /OIF; Platelet Estimate NORMAL (NORMAL); Platelet Morphology Comment NORMAL; RBC Morphology NOTED
[2020-12-02 12:06] LABS: HBS Num1 0.21 mIU/mL (0-7.99); HBc Num1 0.13 S/CO (0.00-0.79); Hepatitis B Core Antibody Nonreactive (Nonreactive); Hepatitis B Surface Antigen Negative (Negative); ~HepC Num1 0.11 S/CO (0.00-0.79); ~Hepatitis B Surface Antibody NONREACTIVE (Nonreactive); ~Hepatitis C Antibody Nonreactive (Nonreactive)
--- NOTE | 2020-12-02 12:11 | MHC.HEMONCMA ---
Pt came in for onc f/u and states he is doing well. clinical summary was updated and labs were drawn. pt will make follow up visit apt.
--- NOTE | 2020-12-02 14:35 | MHC.HEMONC ---
Pt here for follow up with Dr Galvan. Port accessed and labs drawn. Flushed with heparin. Dr Galvan in. Reviewed results of PET scan with pt. Pt to have CT biopsy scheduled after prior auth obtained.
--- NOTE | 2020-12-02 16:27 | MHC.HEMONCMA ---
called Dr. rosalva shore for second opinion at [facility]. faxed notes and reports to [phone], reports were received and pt is aware he will be receiving call from [facility].
[2020-12-06 09:26] LABS: Beta-2 Microglobulin, Serum 1.95 mg/L (< OR = 2.51)
--- NOTE | 2020-12-09 10:13 | HO.HEMONCPA ---
PA REQUESTED FOR CT BIOPSY , AWAITING APPROVAL. CASE#[id number]
--- NOTE | 2020-12-15 10:28 | HO.HEMONCPA ---
PA FOR CT BIOPSY APPROVED.
--- NOTE | 2020-12-15 14:31 | MHC.HEMONCMA ---
CT BIOPSY BOOKED FOR 12/20/20 at 12:30pm. PT. NOTIFIED
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
--- NOTE | 2020-12-27 16:21 | MHC.HEMONCMA ---
pt came in for onc follow up and states he is doing well. [facility] will [facility].
--- NOTE | 2020-12-28 14:20 | MHC.HEMONCMA ---
Patient called and left a voicemail for me, asking if we could send discs of his imaging burned on a CD for him, that his pathology slides be sent to [facility] and that a referral was sent to [facility] by his PCP Dr Diggs. I called [employer] to have those CD's burned, Rand said that they will be ready by the end of the day. As far as the slides, I spoke with Zee in Pathology and she states that normally [facility] faxes her paperwork that she needs in order to process the request. I let Porfirio know that [facility] needs to contact our Pathology department to get those slides sent. I also let Porfirio know that Dr Diggs's office stated that they would have that referral sent to [facility], I asked Porfirio to call [facility] tomorrow to make sure they recieved it and to let them know that they need to contact our Pathology department for the slides. Porfirio states he understands and is okay with the plan, all other questions and concerns were answered.
--- NOTE | 2021-01-03 11:46 | MHC.HEMONC ---
I spoke to pt re: upcoming appts. Pratik will be booking bone marrow bx in OR to be done by Dr Galvan. Pt has appt at [facility] on 01/13/21 at 4 pm. I spoke to them and they will be requesting slides from our Pathology Dept one week before appt. Pt has CDs of his imaging. I left message with Financial Counselor at [facility] to check if they received referral from Dr Diggs (PCP) . This is out of network for [facility]. Porfirio was given my direct phone number for any questions re: the plan.
--- NOTE | 2021-01-06 11:10 | MHC.HEMONC ---
Pt called because he saw appt for BMB on Jan 10 on patient portal. He was told this would be done in OR on second floor by Dr Galvan. He is not on blood thinning agents. I am checking in with Dr Irby office for referral to [facility] (he is going on Jan 13). Also checking with Pathology to see if slides were requested and sent there.
--- NOTE | 2021-01-06 11:15 | MHC.HEMONC ---
Spoke to Gina at Dr Irby's office. She will work on pt referral to [facility] as he will be going out of network for his Consultation on the .
--- NOTE | 2021-01-17 12:58 | MHC.HEMONC ---
Dr Galvan ordered Zanabrutinib at [facility] per Thea. Pt is aware and he will call us when delivery is set up so we can bring him in for teach, labs and EKG. Pt had this recommendation on therapy per MD at [facility] last week.
--- NOTE | 2021-01-18 15:48 | MHC.HEMONC ---
Pt will be starting on new rx per [employer] at [facility]. Dr Galvan ordering at [facility] rx. Co-Pay is over $2000 per month so Thea applied for mari. Pt was approved and information to be scanned into computer. Pt will be notified of delivery and we will set up teach and lab f/u appts.
--- NOTE | 2021-01-19 15:16 | MHC.HEMONC ---
Addendum entered by Kaela Hardin, RN 01/19/21 15:19: rx is Zanubrutinib Original Note: Per Juan at [facility] [place] pt to be receiving Zanabrutinib from [facility] on Sat. Pt is aware. I called him to set up education/EKG on Saturday the at 2 pm. Pt will need weekly bloodwork for first month and then per Dr Galvan.
--- NOTE | 2021-01-23 14:14 | ECG_ITS ---
Test Reason : chemotherapy Blood Pressure : / mmHG Vent. Rate : 083 BPM Atrial Rate : 083 BPM P-R Int : 210 ms QRS Dur : 082 ms QT Int : 360 ms P-R-T Axes : 092 -04 065 degrees QTc Int : 423 ms Sinus rhythm with 1st degree A-V block Intra-ventricular conduction delay Abnormal ECG When compared with ECG of 11-OCT-2019 15:43, SC interval has increased T wave inversion no longer evident in Lateral leads Referred By: Leslie Galvan Electronically Signed By:PHOEBE JAUREGUI MD
[2021-01-23 14:29] VITALS: BP 173/77; PULSE 90; RESP 16; TEMP 36.9; O2SAT 99
--- NOTE | 2021-01-23 14:29 | PM.HEMONCPN ---
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 came in for teaching today. The medication will be delivered on Saturday. Baseline EKG was stable. He will return for weekly labs. He will return next week for a follow-up visit. Thank you, cc: Dr. Zion Irby. Amilcar Nobles. Dr. Mauricio shore. - Time Spent With Patient Time Spent with Patient (in minutes): 30
[2021-01-23 14:33] VITALS: BMI 32.3
[2021-01-23 14:37] LABS: MANUAL DIFF FLAG NO
[2021-01-23 14:39] LABS: Basophils Percent Auto 0.4 % (0-2); Eosinophils Absolute Auto 0.2 X10*3/uL (0.0-0.4); Eosinophils Percent Auto 2.1 % (0-4); Hematocrit 37.2 % (42-52); Hemoglobin 12.9 g/dl (14.0-18.0); Imm Gran Abs Auto 0.05 X10*3/uL (0.00-0.03); Imm Gran Pct Auto 0.5 % (0.0-0.4); Lymphocytes Absolute Auto 1.6 X10*3/uL (1.2-4.9); Lymphocytes Percent Auto 16.7 % (20-40); Mean Corpuscular HGB Conc 34.7 g/dl (31.0-36.0); Mean Corpuscular Hemoglobin 32.7 pg (27.0-33.0); Mean Corpuscular Volume 94.2 fL (80-98); Mean Platelet Volume 9.3 fL (9.4-12.4); Monocytes Absolute Auto 0.7 X10*3/uL (0.1-1.2); Monocytes Percent Auto 7.9 % (2-11); Neutrophils Absolute Auto 6.8 X10*3/uL (2.0-8.3); Neutrophils Percent Auto 72.4 % (45-73); Platelet Count 252 X10*3/uL (160-400); Red Blood Count 3.95 X10*6/uL (4.60-5.80); Red Cell Distribution Width 11.9 % (11.0-16.0); White Blood Count 9.4 X10*3/uL (4.8-10.8)
[2021-01-23 15:02] LABS: Alanine Aminotransferase 19 U/L (0-40); Albumin Level 4.2 g/dL (3.5-5.0); Alkaline Phosphatase 81 U/L (39-117); Anion Gap 14 (12-20); Aspartate Amino Transferase 19 U/L (5-37); Bilirubin Total 0.3 mg/dL (0.0-1.0); Blood Urea Nitrogen 14 mg/dL (9-16); Calcium 9.3 mg/dL (8.4-10.2); Carbon Dioxide 24 mmol/L (22-29); Chloride 107 mmol/L (96-108); Creatinine Clr Calc Pharmacy 78.4; Estimated Glomerular Filt Rate > 60; Glucose Random 124 mg/dL (60-115); Lactate Dehydrogenase 192 U/L (118-273); Potassium 3.9 mmol/L (3.3-5.1); Sodium 141 mmol/L (135-145); Total Protein 6.5 g/dL (6.5-8.0)
--- NOTE | 2021-01-23 15:20 | MHC.HEMONC ---
Pt saw Dr Galvan and she reviewed EKG and labs. I did education on Zanubrutinib, side effects and when to call Clinic. He is to take 4 pills per day to equal [address] Galvan said it would be OK to take two pills twice a day. He is aware of bleeding precautions and low WBC possibilty. We will do weekly labs for 1st month and he will see Dr Galvan in one month to determine future bloodwork. Pt expects to receive med on Saturday and he will call if there are any interruptions. Spoke to Gina at Dr Irby's to schedule appt for BP f/u. Today it was high here.
--- NOTE | 2021-01-26 09:00 | MHC.HEMONC ---
Pt called yesterday to report delivery and 1st dose of Zanubrutinib. He is tolerating it and will repeat dose in evening. Dr Galvan told him he should divide his daily dose.
[2021-02-01 10:41] VITALS: BP 155/72; PULSE 73; RESP 16; TEMP 36.3; O2SAT 97
[2021-02-01 10:53] LABS: Basophils Absolute Auto 0.1 X10*3/uL (0.0-0.2); Basophils Percent Auto 0.5 % (0-2); Eosinophils Absolute Auto 0.3 X10*3/uL (0.0-0.4); Eosinophils Percent Auto 1.6 % (0-4); Hematocrit 37.6 % (42-52); Hemoglobin 12.8 g/dl (14.0-18.0); Imm Gran Pct Auto 0.5 % (0.0-0.4); Lymphocytes Percent Auto 54.3 % (20-40); MANUAL DIFF FLAG SCAN; Mean Corpuscular Hemoglobin 32.7 pg (27.0-33.0); Mean Corpuscular Volume 95.9 fL (80-98); Monocytes Percent Auto 5.4 % (2-11); Neutrophils Absolute Auto 7.1 X10*3/uL (2.0-8.3); Neutrophils Percent Auto 37.7 % (45-73); Platelet Count 279 X10*3/uL (160-400); Red Blood Count 3.92 X10*6/uL (4.60-5.80); Red Cell Distribution Width 12.1 % (11.0-16.0); SCAN SMEAR FLAG 1; White Blood Count 18.9 X10*3/uL (4.8-10.8)
[2021-02-01 11:00] LABS: Lymphocytes Absolute Auto 10.3 X10*3/uL (1.2-4.9)
[2021-02-01 11:13] LABS: Alanine Aminotransferase 14 U/L (0-40); Albumin Level 4.2 g/dL (3.5-5.0); Alkaline Phosphatase 76 U/L (39-117); Anion Gap 12 (12-20); Aspartate Amino Transferase 18 U/L (5-37); Bilirubin Total 0.5 mg/dL (0.0-1.0); Blood Urea Nitrogen 18 mg/dL (9-16); Calcium 9.1 mg/dL (8.4-10.2); Carbon Dioxide 24 mmol/L (22-29); Chloride 105 mmol/L (96-108); Creatinine Clr Calc Pharmacy 79.3; Estimated Glomerular Filt Rate > 60; Glucose Random 112 mg/dL (60-115); Potassium 4.1 mmol/L (3.3-5.1); Sodium 137 mmol/L (135-145); Total Protein 6.5 g/dL (6.5-8.0)
[2021-02-01 11:39] LABS: SLIDE REVIEW VERIFIED
--- NOTE | 2021-02-01 15:18 | MHC.HEMONC ---
Port accessed- positive blood return. VSS. Labs obtained. Patient feeling well with new oral chemotherapy. No complaints at this time.
--- NOTE | 2021-02-02 15:59 | MHC.HEMONC ---
Reviewed labs with Dr. Galvan. WBC elevated at 18.9, patient does not endorse any signs or symptoms of infection. Patient called and educated on calling office with any signs of infection. He will return next week for lab appt.
[2021-02-08 10:55] LABS: Basophils Absolute Auto 0.1 X10*3/uL (0.0-0.2); Basophils Percent Auto 0.4 % (0-2); Eosinophils Absolute Auto 0.2 X10*3/uL (0.0-0.4); Eosinophils Percent Auto 1.1 % (0-4); Hematocrit 38.4 % (42.0-52.0); Hemoglobin 12.8 g/dl (14.0-18.0); Imm Gran Pct Auto 0.5 % (0.0-0.4); Lymphocytes Absolute Auto 11.5 X10*3/uL (1.2-4.9); Lymphocytes Percent Auto 59.1 % (20-40); MANUAL DIFF FLAG SCAN; Mean Corpuscular HGB Conc 33.3 g/dl (31.0-36.0); Mean Corpuscular Hemoglobin 32.3 pg (27.0-33.0); Mean Platelet Volume 10.3 fL (9.4-12.4); Monocytes Absolute Auto 0.9 X10*3/uL (0.1-1.2); Monocytes Percent Auto 4.6 % (2-11); Neutrophils Absolute Auto 6.66 x10*3/uL (2.0-8.3); Neutrophils Percent Auto 34.3 % (45-73); Platelet Count 287 X10*3/uL (160-400); Red Blood Count 3.96 X10*6/uL (4.60-5.80); Red Cell Distribution Width 11.9 % (11.0-16.0); SCAN SMEAR FLAG 1; White Blood Count 19.4 X10*3/uL (4.8-10.8)
[2021-02-08 11:20] LABS: Alanine Aminotransferase 15 U/L (0-40); Albumin Level 4.3 g/dL (3.5-5.0); Alkaline Phosphatase 69 U/L (39-117); Anion Gap 14 (12-20); Aspartate Amino Transferase 19 U/L (5-37); Bilirubin Total 0.3 mg/dL (0.0-1.0); Blood Urea Nitrogen 21 mg/dL (9-16); Calcium 9.3 mg/dL (8.4-10.2); Carbon Dioxide 22 mmol/L (22-29); Chloride 107 mmol/L (96-108); Creatinine Clr Calc Pharmacy 79.3; Estimated Glomerular Filt Rate > 60; Glucose Random 116 mg/dL (60-115); Potassium 4.3 mmol/L (3.3-5.1); Sodium 139 mmol/L (135-145); Total Protein 6.7 g/dL (6.5-8.0)
[2021-02-08 11:25] LABS: SLIDE REVIEW VERIFIED
[2021-02-15 10:51] LABS: Basophils Absolute Auto 0.1 X10*3/uL (0.0-0.2); Basophils Percent Auto 0.5 % (0-2); Eosinophils Absolute Auto 0.3 X10*3/uL (0.0-0.4); Eosinophils Percent Auto 1.6 % (0-4); Hematocrit 38.4 % (42.0-52.0); Hemoglobin 12.8 g/dl (14.0-18.0); Imm Gran Abs Auto 0.07 X10*3/uL (0.00-0.03); Imm Gran Pct Auto 0.4 % (0.0-0.4); Lymphocytes Percent Auto 61.8 % (20-40); MANUAL DIFF FLAG SCAN; Mean Corpuscular HGB Conc 33.3 g/dl (31.0-36.0); Mean Corpuscular Hemoglobin 32.4 pg (27.0-33.0); Mean Corpuscular Volume 97.2 fL (80.0-98.0); Mean Platelet Volume 10.6 fL (9.4-12.4); Monocytes Absolute Auto 0.9 X10*3/uL (0.1-1.2); Monocytes Percent Auto 5.2 % (2-11); Neutrophils Absolute Auto 5.1 x10*3/uL (2.0-8.3); Neutrophils Percent Auto 30.5 % (45-73); Platelet Count 275 X10*3/uL (160-400); Red Blood Count 3.95 X10*6/uL (4.60-5.80); SCAN SMEAR FLAG 1; White Blood Count 16.8 X10*3/uL (4.8-10.8)
[2021-02-15 10:55] LABS: Lymphocytes Absolute Auto 10.4 X10*3/uL (1.2-4.9)
[2021-02-15 11:03] LABS: Alanine Aminotransferase 18 U/L (0-40); Albumin Level 4.2 g/dL (3.5-5.0); Alkaline Phosphatase 67 U/L (39-117); Anion Gap 11 (12-20); Aspartate Amino Transferase 19 U/L (5-37); Bilirubin Total 0.5 mg/dL (0.0-1.0); Blood Urea Nitrogen 17 mg/dL (9-16); Calcium 9.2 mg/dL (8.4-10.2); Carbon Dioxide 26 mmol/L (22-29); Chloride 106 mmol/L (96-108); Creatinine Clr Calc Pharmacy 78.4; Estimated Glomerular Filt Rate > 60; Glucose Random 120 mg/dL (60-115); Potassium 4.1 mmol/L (3.3-5.1); Sodium 139 mmol/L (135-145); Total Protein 6.5 g/dL (6.5-8.0)
[2021-02-15 11:45] LABS: SLIDE REVIEW VERIFIED
--- NOTE | 2021-02-15 13:17 | MHC.HEMONC ---
Labs drawn and reviewed. Pt aware of high white blood cell count. No signs or symptoms of infection reported. Pt aware to call clinic with any new symptoms.
[2021-02-23 11:11] VITALS: BP 163/82; PULSE 83; RESP 20; TEMP 37.1; O2SAT 98
[2021-02-23 11:55] LABS: Hematocrit 39.4 % (42.0-52.0); Mean Corpuscular Hemoglobin 31.9 pg (27.0-33.0); Mean Corpuscular Volume 96.6 fL (80.0-98.0); Mean Platelet Volume 10.7 fL (9.4-12.4); Platelet Count 259 X10*3/uL (160-400); Red Blood Count 4.08 X10*6/uL (4.60-5.80); White Blood Count 15.4 X10*3/uL (4.8-10.8)
[2021-02-23 12:32] LABS: Alanine Aminotransferase 20 U/L (0-40); Albumin Level 4.4 g/dL (3.5-5.0); Alkaline Phosphatase 61 U/L (39-117); Anion Gap 14 (12-20); Aspartate Amino Transferase 18 U/L (5-37); Bilirubin Total 0.4 mg/dL (0.0-1.0); Blood Urea Nitrogen 17 mg/dL (9-16); Calcium 9.4 mg/dL (8.4-10.2); Carbon Dioxide 22 mmol/L (22-29); Chloride 107 mmol/L (96-108); Creatinine Clr Calc Pharmacy 76.6; Estimated Glomerular Filt Rate > 60; Glucose Random 106 mg/dL (60-115); Lactate Dehydrogenase 169 U/L (118-273); Potassium 4.1 mmol/L (3.3-5.1); Sodium 139 mmol/L (135-145); Total Protein 6.7 g/dL (6.5-8.0)
[2021-02-23 13:20] LABS: SLIDE REVIEW MANUAL DIFF
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
[2021-02-23 14:38] LABS: Atypical Lymph Absolute Manual 0.3 x10*3/uL; Atypical Lymphs Percent Manual 2 % (0-6); Band Neutrophils Percent 2 % (3-5); Lymphocytes Absolute Manual 8.9 X10*3/uL (1.2-4.9); Lymphocytes Percent Manual 58 % (20-40); Monocytes Absolute Manual 0.3 X10*3/uL (0.1-1.2); Monocytes Percent Manual 2 % (2-11); Neutrophils Absolute Manual 5.9 X10*3/uL (2.0-8.3); Neutrophils Percent Manual 36 % (45-73)
[2021-02-23 14:39] LABS: Platelet Estimate NORMAL (NORMAL); Platelet Morphology Comment NORMAL; RBC Morphology NORMAL
--- NOTE | 2021-02-23 14:50 | MHC.HEMONC ---
Patient present for weekly lab draw from [facility]. Port accessed with positive blood return and labs drawn. Dr Galvan in for follow up visit, labs and bone marrow biopsy reviewed. Lab draws scheduled for every 2 weeks on 03/09/21 and 03/23/21.
[2021-03-09 11:41] LABS: Basophils Absolute Auto 0.1 X10*3/uL (0.0-0.2); Basophils Percent Auto 0.4 % (0-2); Eosinophils Absolute Auto 0.2 X10*3/uL (0.0-0.4); Eosinophils Percent Auto 1.6 % (0-4); Hematocrit 38.3 % (42.0-52.0); Imm Gran Abs Auto 0.05 X10*3/uL (0.00-0.03); Imm Gran Pct Auto 0.4 % (0.0-0.4); Lymphocytes Percent Auto 52.8 % (20-40); MANUAL DIFF FLAG SCAN; Mean Corpuscular HGB Conc 33.9 g/dl (31.0-36.0); Mean Corpuscular Hemoglobin 32.7 pg (27.0-33.0); Mean Corpuscular Volume 96.5 fL (80.0-98.0); Mean Platelet Volume 10.4 fL (9.4-12.4); Monocytes Absolute Auto 0.9 X10*3/uL (0.1-1.2); Monocytes Percent Auto 6.6 % (2-11); Neutrophils Absolute Auto 5.2 x10*3/uL (2.0-8.3); Neutrophils Percent Auto 38.2 % (45-73); Platelet Count 243 X10*3/uL (160-400); Red Blood Count 3.97 X10*6/uL (4.60-5.80); Red Cell Distribution Width 11.9 % (11.0-16.0); SCAN SMEAR FLAG 1; White Blood Count 13.6 X10*3/uL (4.8-10.8)
[2021-03-09 11:42] LABS: Lymphocytes Absolute Auto 7.2 X10*3/uL (1.2-4.9)
[2021-03-09 12:02] LABS: SLIDE REVIEW VERIFIED
[2021-03-09 12:32] LABS: Alanine Aminotransferase 19 U/L (0-40); Albumin Level 4.3 g/dL (3.5-5.0); Alkaline Phosphatase 66 U/L (39-117); Anion Gap 14 (12-20); Aspartate Amino Transferase 19 U/L (5-37); Bilirubin Total 0.6 mg/dL (0.0-1.0); Blood Urea Nitrogen 18 mg/dL (9-16); Carbon Dioxide 23 mmol/L (22-29); Chloride 106 mmol/L (96-108); Creatinine Clr Calc Pharmacy 76.6; Estimated Glomerular Filt Rate > 60; Glucose Random 111 mg/dL (60-115); Potassium 4.1 mmol/L (3.3-5.1); Sodium 139 mmol/L (135-145); Total Protein 6.6 g/dL (6.5-8.0)
--- NOTE | 2021-03-09 14:16 | MHC.HEMONC ---
Pt here for lab draw from port. Port accessed with blood return noted-labs drawn from port-specimen to lab. Port flushed with heparin and de accessed.
[2021-03-23 11:48] LABS: Basophils Percent Auto 0.4 % (0-2); Eosinophils Absolute Auto 0.2 X10*3/uL (0.0-0.4); Eosinophils Percent Auto 1.7 % (0-4); Hematocrit 38.6 % (42.0-52.0); Hemoglobin 12.9 g/dl (14.0-18.0); Imm Gran Abs Auto 0.04 X10*3/uL (0.00-0.03); Imm Gran Pct Auto 0.4 % (0.0-0.4); Lymphocytes Percent Auto 45.4 % (20-40); MANUAL DIFF FLAG SCAN; Mean Corpuscular HGB Conc 33.4 g/dl (31.0-36.0); Mean Corpuscular Hemoglobin 32.3 pg (27.0-33.0); Mean Corpuscular Volume 96.7 fL (80.0-98.0); Mean Platelet Volume 10.5 fL (9.4-12.4); Monocytes Absolute Auto 0.7 X10*3/uL (0.1-1.2); Monocytes Percent Auto 6.7 % (2-11); Neutrophils Percent Auto 45.4 % (45-73); Platelet Count 263 X10*3/uL (160-400); Red Blood Count 3.99 X10*6/uL (4.60-5.80); SCAN SMEAR FLAG 1; White Blood Count 11.1 X10*3/uL (4.8-10.8)
[2021-03-23 12:08] LABS: Alanine Aminotransferase 21 U/L (0-40); Albumin Level 4.3 g/dL (3.5-5.0); Alkaline Phosphatase 64 U/L (39-117); Anion Gap 13 (12-20); Aspartate Amino Transferase 20 U/L (5-37); Bilirubin Total 0.5 mg/dL (0.0-1.0); Blood Urea Nitrogen 19 mg/dL (9-16); Calcium 9.4 mg/dL (8.4-10.2); Carbon Dioxide 24 mmol/L (22-29); Chloride 106 mmol/L (96-108); Estimated Glomerular Filt Rate > 60; Glucose Random 107 mg/dL (60-115); Potassium 3.9 mmol/L (3.3-5.1); Sodium 139 mmol/L (135-145)
[2021-03-23 12:22] LABS: SLIDE REVIEW VERIFIED
--- NOTE | 2021-03-23 16:51 | MHC.HEMONC ---
Patient present for weekly lab draw from [facility]. Port accessed with positive blood return and labs drawn. Lab draws scheduled for monthly on 04/20/21. Dr Galvan to review if scans need to be completed.
[2021-04-20 11:07] VITALS: BP 158/86; PULSE 65; RESP 18; TEMP 37.1; O2SAT 96
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
[2021-04-20 11:16] VITALS: BP 142/74
[2021-04-20 11:43] LABS: MANUAL DIFF FLAG NO
[2021-04-20 11:44] LABS: Basophils Percent Auto 0.4 % (0-2); Eosinophils Absolute Auto 0.2 X10*3/uL (0.0-0.4); Eosinophils Percent Auto 2.2 % (0-4); Hematocrit 39.1 % (42.0-52.0); Hemoglobin 13.1 g/dl (14.0-18.0); Imm Gran Abs Auto 0.03 X10*3/uL (0.00-0.03); Imm Gran Pct Auto 0.3 % (0.0-0.4); Lymphocytes Absolute Auto 3.6 X10*3/uL (1.2-4.9); Lymphocytes Percent Auto 35.4 % (20-40); Mean Corpuscular HGB Conc 33.5 g/dl (31.0-36.0); Mean Corpuscular Hemoglobin 32.3 pg (27.0-33.0); Mean Corpuscular Volume 96.3 fL (80.0-98.0); Mean Platelet Volume 10.4 fL (9.4-12.4); Monocytes Absolute Auto 0.9 X10*3/uL (0.1-1.2); Monocytes Percent Auto 9.1 % (2-11); Neutrophils Absolute Auto 5.3 x10*3/uL (2.0-8.3); Neutrophils Percent Auto 52.6 % (45-73); Platelet Count 236 X10*3/uL (160-400); Red Blood Count 4.06 X10*6/uL (4.60-5.80); White Blood Count 10.1 X10*3/uL (4.8-10.8)
[2021-04-20 12:02] LABS: Alanine Aminotransferase 20 U/L (0-40); Albumin Level 4.3 g/dL (3.5-5.0); Alkaline Phosphatase 60 U/L (39-117); Anion Gap 11 (12-20); Aspartate Amino Transferase 18 U/L (5-37); Bilirubin Total 0.5 mg/dL (0.0-1.0); Blood Urea Nitrogen 16 mg/dL (9-16); Calcium 9.7 mg/dL (8.4-10.2); Carbon Dioxide 25 mmol/L (22-29); Chloride 107 mmol/L (96-108); Creatinine Clr Calc Pharmacy 77.2; Estimated Glomerular Filt Rate > 60; Glucose Random 105 mg/dL (60-115); Lactate Dehydrogenase 198 U/L (118-273); Potassium 4.1 mmol/L (3.3-5.1); Sodium 139 mmol/L (135-145); Total Protein 6.7 g/dL (6.5-8.0)
--- NOTE | 2021-04-20 14:49 | HO.HEMONCPA ---
PA FOR PET/CT SCAN APPROVED. AUTH #[id number]. DOS - 04/20/21 to 10/17/21
--- NOTE | 2021-04-20 15:47 | MHC.HEMONC ---
Patient present for monthly lab draw and port flush. Vital signs done, BP 158/86, manual recheck of BP 142/74. Per Dr Galvan, Gamaliel will continue monthly lab draws and Michelle Escalera initiated a PA for upcoming PET Scan. Next lab draw scheduled for 05/18/21. Dr Galvan in to see patient.
--- NOTE | 2021-04-26 11:06 | MHC.HEMONCMA ---
[facility] PET form, last office note and last imaging faxed to [facility] for them to schedule the patient.
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
[2021-05-18 11:28] LABS: MANUAL DIFF FLAG NO
[2021-05-18 11:29] VITALS: BP 158/77; PULSE 77; RESP 18; TEMP 37.1; O2SAT 96; BMI 32.1
[2021-05-18 11:31] LABS: Basophils Percent Auto 0.5 % (0-2); Eosinophils Absolute Auto 0.2 X10*3/uL (0.0-0.4); Eosinophils Percent Auto 2.8 % (0-4); Hematocrit 37.8 % (42.0-52.0); Hemoglobin 13.1 g/dl (14.0-18.0); Imm Gran Abs Auto 0.03 X10*3/uL (0.00-0.03); Imm Gran Pct Auto 0.4 % (0.0-0.4); Lymphocytes Absolute Auto 2.6 X10*3/uL (1.2-4.9); Lymphocytes Percent Auto 32.3 % (20-40); Mean Corpuscular HGB Conc 34.7 g/dl (31.0-36.0); Mean Corpuscular Hemoglobin 32.9 pg (27.0-33.0); Mean Platelet Volume 10.4 fL (9.4-12.4); Monocytes Absolute Auto 0.9 X10*3/uL (0.1-1.2); Monocytes Percent Auto 11.2 % (2-11); Neutrophils Absolute Auto 4.3 x10*3/uL (2.0-8.3); Neutrophils Percent Auto 52.8 % (45-73); Platelet Count 238 X10*3/uL (160-400); Red Blood Count 3.98 X10*6/uL (4.60-5.80); White Blood Count 8.1 X10*3/uL (4.8-10.8)
[2021-05-18 11:59] LABS: Alanine Aminotransferase 19 U/L (0-40); Albumin Level 4.3 g/dL (3.5-5.0); Alkaline Phosphatase 63 U/L (39-117); Anion Gap 12 (12-20); Aspartate Amino Transferase 19 U/L (5-37); Bilirubin Total 0.6 mg/dL (0.0-1.0); Blood Urea Nitrogen 18 mg/dL (9-16); Calcium 9.3 mg/dL (8.4-10.2); Carbon Dioxide 26 mmol/L (22-29); Chloride 104 mmol/L (96-108); Estimated Glomerular Filt Rate > 60; Glucose Random 107 mg/dL (60-115); Lactate Dehydrogenase 189 U/L (118-273); Potassium 3.9 mmol/L (3.3-5.1); Sodium 138 mmol/L (135-145); Total Protein 6.7 g/dL (6.5-8.0)
--- NOTE | 2021-05-18 15:54 | MHC.HEMONCMA ---
Patient was in for follow up. Clinical summary reviewed and updated,VSS. Labs were drawn. Patient will return in 1 month.
--- NOTE | 2021-05-18 16:15 | MHC.HEMONC ---
Patient present for Monthly lab draw and port flush. Right chest port accessed, positive blood return noted. Labs drawn. Port flushed with Heparin and de-accessed. Next lab draw scheduled for 06/15/21. Dr Galvan in to see patient. He departed the unit.
[2021-06-15 11:25] LABS: MANUAL DIFF FLAG NO
[2021-06-15 11:27] LABS: Basophils Percent Auto 0.4 % (0-2); Eosinophils Absolute Auto 0.2 X10*3/uL (0.0-0.4); Eosinophils Percent Auto 2.4 % (0-4); Hematocrit 38.3 % (42.0-52.0); Hemoglobin 13.2 g/dl (14.0-18.0); Imm Gran Abs Auto 0.06 X10*3/uL (0.00-0.03); Imm Gran Pct Auto 0.7 % (0.0-0.4); Lymphocytes Absolute Auto 2.1 X10*3/uL (1.2-4.9); Lymphocytes Percent Auto 25.9 % (20-40); Mean Corpuscular HGB Conc 34.5 g/dl (31.0-36.0); Mean Corpuscular Hemoglobin 33.1 pg (27.0-33.0); Mean Platelet Volume 10.3 fL (9.4-12.4); Monocytes Absolute Auto 0.8 X10*3/uL (0.1-1.2); Monocytes Percent Auto 9.9 % (2-11); Neutrophils Absolute Auto 4.9 x10*3/uL (2.0-8.3); Neutrophils Percent Auto 60.7 % (45-73); Platelet Count 229 X10*3/uL (160-400); Red Blood Count 3.99 X10*6/uL (4.60-5.80); Red Cell Distribution Width 11.9 % (11.0-16.0)
[2021-06-15 11:42] LABS: Alanine Aminotransferase 22 U/L (0-40); Albumin Level 4.4 g/dL (3.5-5.0); Alkaline Phosphatase 66 U/L (39-117); Anion Gap 12 (12-20); Aspartate Amino Transferase 19 U/L (5-37); Bilirubin Total 0.5 mg/dL (0.0-1.0); Blood Urea Nitrogen 19 mg/dL (9-16); Calcium 9.4 mg/dL (8.4-10.2); Carbon Dioxide 25 mmol/L (22-29); Chloride 105 mmol/L (96-108); Estimated Glomerular Filt Rate > 60; Glucose Random 111 mg/dL (60-115); Lactate Dehydrogenase 174 U/L (118-273); Sodium 138 mmol/L (135-145); Total Protein 6.7 g/dL (6.5-8.0)
--- NOTE | 2021-06-15 11:46 | MHC.HEMONC ---
Assisted pt with filling out financial application for continued assistance for [facility]. Faxed to Office.
--- NOTE | 2021-06-15 15:14 | MHC.HEMONC ---
Patient present for Monthly lab draw and port flush. Right chest port accessed, positive blood return noted. Labs drawn. Port flushed with Heparin and de-accessed. Next lab draw scheduled for 07/20/21. Dr Galvan in to see patient. He departed the unit.
[2021-07-20 11:55] LABS: MANUAL DIFF FLAG NO
[2021-07-20 12:00] LABS: Basophils Percent Auto 0.4 % (0-2); Eosinophils Absolute Auto 0.3 X10*3/uL (0.0-0.4); Hematocrit 38.6 % (42.0-52.0); Hemoglobin 13.2 g/dl (14.0-18.0); Imm Gran Abs Auto 0.05 X10*3/uL (0.00-0.03); Imm Gran Pct Auto 0.7 % (0.0-0.4); Lymphocytes Absolute Auto 1.7 X10*3/uL (1.2-4.9); Lymphocytes Percent Auto 22.5 % (20-40); Mean Corpuscular HGB Conc 34.2 g/dl (31.0-36.0); Mean Corpuscular Hemoglobin 32.8 pg (27.0-33.0); Mean Platelet Volume 10.4 fL (9.4-12.4); Monocytes Absolute Auto 0.8 X10*3/uL (0.1-1.2); Monocytes Percent Auto 10.6 % (2-11); Neutrophils Absolute Auto 4.7 x10*3/uL (2.0-8.3); Neutrophils Percent Auto 61.8 % (45-73); Platelet Count 231 X10*3/uL (160-400); Red Blood Count 4.02 X10*6/uL (4.60-5.80); Red Cell Distribution Width 11.9 % (11.0-16.0); White Blood Count 7.5 X10*3/uL (4.8-10.8)
[2021-07-20 12:18] LABS: Alanine Aminotransferase 23 U/L (0-40); Albumin Level 4.3 g/dL (3.5-5.0); Alkaline Phosphatase 65 U/L (39-117); Anion Gap 14 (12-20); Aspartate Amino Transferase 21 U/L (5-37); Bilirubin Total 0.7 mg/dL (0.0-1.0); Blood Urea Nitrogen 18 mg/dL (9-16); Calcium 9.3 mg/dL (8.4-10.2); Carbon Dioxide 23 mmol/L (22-29); Chloride 105 mmol/L (96-108); Creatinine Clr Calc Pharmacy 73.4; Estimated Glomerular Filt Rate > 60; Glucose Random 100 mg/dL (60-115); Lactate Dehydrogenase 205 U/L (118-273); Sodium 138 mmol/L (135-145); Total Protein 6.8 g/dL (6.5-8.0)
--- NOTE | 2021-07-20 15:17 | MHC.HEMONC ---
Patient present for monthly lab draw and port flush. Right chest port accessed, positive blood return noted. Labs drawn. Port flushed with Heparin and de-accessed. Next lab draw scheduled for 08/31/21 and 10/05/21. Dr Galvan agreed to change the timing of his port flushes to 6 weeks for the next two flushes to accommodate [place] trip [place], will reevaluate timing after 10/05/21 flush/lab draw. He departed the unit.
[2021-08-31 11:44] LABS: MANUAL DIFF FLAG NO
[2021-08-31 11:46] LABS: Basophils Percent Auto 0.4 % (0-2); Eosinophils Absolute Auto 0.2 X10*3/uL (0.0-0.4); Eosinophils Percent Auto 2.1 % (0-4); Hematocrit 38.8 % (42.0-52.0); Hemoglobin 13.2 g/dl (14.0-18.0); Imm Gran Abs Auto 0.05 X10*3/uL (0.00-0.03); Imm Gran Pct Auto 0.7 % (0.0-0.4); Lymphocytes Absolute Auto 1.7 X10*3/uL (1.2-4.9); Lymphocytes Percent Auto 22.1 % (20-40); Mean Corpuscular Hemoglobin 32.7 pg (27.0-33.0); Mean Platelet Volume 10.4 fL (9.4-12.4); Monocytes Absolute Auto 0.9 X10*3/uL (0.1-1.2); Monocytes Percent Auto 11.1 % (2-11); Neutrophils Absolute Auto 4.9 x10*3/uL (2.0-8.3); Neutrophils Percent Auto 63.6 % (45-73); Platelet Count 241 X10*3/uL (160-400); Red Blood Count 4.04 X10*6/uL (4.60-5.80); Red Cell Distribution Width 11.9 % (11.0-16.0); White Blood Count 7.7 X10*3/uL (4.8-10.8)
[2021-08-31 12:10] LABS: Alanine Aminotransferase 23 U/L (0-40); Albumin Level 4.3 g/dL (3.5-5.0); Alkaline Phosphatase 63 U/L (39-117); Anion Gap 13 (12-20); Aspartate Amino Transferase 18 U/L (5-37); Bilirubin Total 0.5 mg/dL (0.0-1.0); Blood Urea Nitrogen 17 mg/dL (9-16); Calcium 9.6 mg/dL (8.4-10.2); Carbon Dioxide 24 mmol/L (22-29); Chloride 105 mmol/L (96-108); Creatinine Clr Calc Pharmacy 68.7; Estimated Glomerular Filt Rate > 60; Glucose Random 107 mg/dL (60-115); Lactate Dehydrogenase 191 U/L (118-273); Potassium 4.1 mmol/L (3.3-5.1); Sodium 138 mmol/L (135-145); Total Protein 6.6 g/dL (6.5-8.0)
--- NOTE | 2021-08-31 16:11 | MHC.HEMONC ---
Port accessed with good blood return noted. Labs drawn. Port flushed with heparin flush 500units and port de-accessed. Next port flush scheduled for 1 month
[2021-10-05 11:33] LABS: MANUAL DIFF FLAG NO
[2021-10-05 11:35] LABS: Basophils Percent Auto 0.3 % (0-2); Eosinophils Absolute Auto 0.2 X10*3/uL (0.0-0.4); Eosinophils Percent Auto 2.5 % (0-4); Hematocrit 38.5 % (42.0-52.0); Imm Gran Abs Auto 0.06 X10*3/uL (0.00-0.03); Imm Gran Pct Auto 0.8 % (0.0-0.4); Lymphocytes Absolute Auto 1.4 X10*3/uL (1.2-4.9); Lymphocytes Percent Auto 20.1 % (20-40); Mean Corpuscular HGB Conc 33.8 g/dl (31.0-36.0); Mean Corpuscular Hemoglobin 32.5 pg (27.0-33.0); Mean Corpuscular Volume 96.3 fL (80.0-98.0); Mean Platelet Volume 10.2 fL (9.4-12.4); Monocytes Absolute Auto 0.8 X10*3/uL (0.1-1.2); Monocytes Percent Auto 11.4 % (2-11); Neutrophils Absolute Auto 4.6 x10*3/uL (2.0-8.3); Neutrophils Percent Auto 64.9 % (45-73); Platelet Count 240 X10*3/uL (160-400); Red Cell Distribution Width 12.2 % (11.0-16.0); White Blood Count 7.1 X10*3/uL (4.8-10.8)
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
[2021-10-05 11:45] VITALS: BP 182/78; PULSE 78; RESP 14; TEMP 36.8; O2SAT 96; BMI 32.8
[2021-10-05 11:53] LABS: Alanine Aminotransferase 21 U/L (0-40); Albumin Level 4.2 g/dL (3.5-5.0); Alkaline Phosphatase 67 U/L (39-117); Anion Gap 13 (12-20); Aspartate Amino Transferase 19 U/L (5-37); Bilirubin Total 0.4 mg/dL (0.0-1.0); Blood Urea Nitrogen 16 mg/dL (9-16); Calcium 8.8 mg/dL (8.4-10.2); Carbon Dioxide 22 mmol/L (22-29); Chloride 106 mmol/L (96-108); Creatinine Clr Calc Pharmacy 71.8; Estimated Glomerular Filt Rate > 60; Glucose Random 114 mg/dL (60-115); Potassium 4.1 mmol/L (3.3-5.1); Sodium 137 mmol/L (135-145); Total Protein 6.6 g/dL (6.5-8.0)
--- NOTE | 2021-10-05 12:06 | MHC.HEMONCMA ---
Pt was in for follow up. Clinical summary reviewed and updated, VSS. Labs were drawn. Pt to return in 1 month.
--- NOTE | 2021-10-05 12:17 | HO.HEMONCSCH ---
CT scan sent to [facility].
--- NOTE | 2021-10-05 12:28 | MHC.HEMONC ---
Port accessed with good blood return noted. Labs obtained, port flushed with heparin 500units and de-accessed. Dr Galvan in to see pt for follow up. Next port flush scheduled for [address] scans ordered and given to Supriya BRIGGS to place in order community facilitator.
[2021-10-20 11:03] VITALS: BP 178/77; PULSE 79; RESP 18; TEMP 36.4; O2SAT 98; BMI 32.9
--- NOTE | 2021-10-20 11:19 | MHC.HEMONC ---
Pt here for follow up with Dr Galvan. Clinical summary updated by nurse. Provider into see pt. Follow up appointment scheduled. Port flushed on October 05 2021
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
[2021-11-16 11:39] LABS: MANUAL DIFF FLAG NO
[2021-11-16 11:46] LABS: Basophils Absolute Auto 0.1 X10*3/uL (0.0-0.2); Basophils Percent Auto 0.7 % (0-2); Eosinophils Absolute Auto 0.2 X10*3/uL (0.0-0.4); Eosinophils Percent Auto 2.6 % (0-4); Hematocrit 38.3 % (42.0-52.0); Hemoglobin 13.3 g/dl (14.0-18.0); Imm Gran Abs Auto 0.08 X10*3/uL (0.00-0.03); Imm Gran Pct Auto 1.1 % (0.0-0.4); Lymphocytes Absolute Auto 1.7 X10*3/uL (1.2-4.9); Mean Corpuscular HGB Conc 34.7 g/dl (31.0-36.0); Mean Corpuscular Hemoglobin 32.8 pg (27.0-33.0); Mean Corpuscular Volume 94.6 fL (80.0-98.0); Mean Platelet Volume 10.3 fL (9.4-12.4); Monocytes Absolute Auto 0.8 X10*3/uL (0.1-1.2); Monocytes Percent Auto 11.5 % (2-11); Neutrophils Absolute Auto 4.2 x10*3/uL (2.0-8.3); Neutrophils Percent Auto 60.1 % (45-73); Platelet Count 247 X10*3/uL (160-400); Red Blood Count 4.05 X10*6/uL (4.60-5.80); Red Cell Distribution Width 11.9 % (11.0-16.0)
[2021-11-16 12:03] LABS: Alanine Aminotransferase 20 U/L (0-40); Albumin Level 4.4 g/dL (3.5-5.0); Alkaline Phosphatase 64 U/L (39-117); Anion Gap 15 (12-20); Aspartate Amino Transferase 17 U/L (5-37); Bilirubin Total 0.4 mg/dL (0.0-1.0); Blood Urea Nitrogen 17 mg/dL (9-16); Calcium 9.1 mg/dL (8.4-10.2); Carbon Dioxide 24 mmol/L (22-29); Chloride 105 mmol/L (96-108); Creatinine Clr Calc Pharmacy 76.1; Estimated Glomerular Filt Rate > 60; Glucose Random 105 mg/dL (60-115); Lactate Dehydrogenase 198 U/L (118-273); Sodium 140 mmol/L (135-145); Total Protein 6.7 g/dL (6.5-8.0)
--- NOTE | 2021-11-16 13:33 | MHC.HEMONC ---
Port accessed without difficulty- positive blood return. Labs obtained. Port de-accessed flushed with Heparin. Patient to return 12/21 for follow up and port flush.
[2021-12-21 11:39] VITALS: BP 164/75; PULSE 80; RESP 16; TEMP 36.6; O2SAT 96; BMI 33.4
[2021-12-21 12:15] LABS: MANUAL DIFF FLAG NO
[2021-12-21 12:20] LABS: Basophils Percent Auto 0.4 % (0-2); Eosinophils Absolute Auto 0.2 X10*3/uL (0.0-0.4); Eosinophils Percent Auto 2.3 % (0-4); Hematocrit 38.1 % (42.0-52.0); Imm Gran Abs Auto 0.06 X10*3/uL (0.00-0.03); Imm Gran Pct Auto 0.8 % (0.0-0.4); Lymphocytes Absolute Auto 1.4 X10*3/uL (1.2-4.9); Lymphocytes Percent Auto 19.4 % (20-40); Mean Corpuscular HGB Conc 34.1 g/dl (31.0-36.0); Mean Corpuscular Hemoglobin 32.4 pg (27.0-33.0); Mean Platelet Volume 10.4 fL (9.4-12.4); Monocytes Absolute Auto 0.8 X10*3/uL (0.1-1.2); Monocytes Percent Auto 10.6 % (2-11); Neutrophils Absolute Auto 4.7 x10*3/uL (2.0-8.3); Neutrophils Percent Auto 66.5 % (45-73); Platelet Count 225 X10*3/uL (160-400); Red Blood Count 4.01 X10*6/uL (4.60-5.80); Red Cell Distribution Width 11.9 % (11.0-16.0); White Blood Count 7.1 X10*3/uL (4.8-10.8)
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
[2021-12-21 12:45] LABS: Alanine Aminotransferase 24 U/L (0-40); Albumin Level 4.3 g/dL (3.5-5.0); Alkaline Phosphatase 66 U/L (39-117); Anion Gap 17 (12-20); Aspartate Amino Transferase 20 U/L (5-37); Bilirubin Total 0.4 mg/dL (0.0-1.0); Blood Urea Nitrogen 19 mg/dL (9-16); Calcium 9.1 mg/dL (8.4-10.2); Carbon Dioxide 21 mmol/L (22-29); Chloride 106 mmol/L (96-108); Creatinine Clr Calc Pharmacy 75.8; Estimated Glomerular Filt Rate > 60; Glucose Random 104 mg/dL (60-115); Sodium 140 mmol/L (135-145); Total Protein 6.7 g/dL (6.5-8.0)
[2021-12-21 12:55] LABS: Lactate Dehydrogenase 174 U/L (118-273)
--- NOTE | 2021-12-21 15:31 | MHC.HEMONCMA ---
Pt was in for follow up. Clinical summary reviewed and updated, VSS. Labs were drawn.
--- NOTE | 2022-02-01 11:45 | MHC.HEMONC ---
Port flush [id number]. - positive blood return. No complaints at this time. Patient to return in 6 weeks for port flush and exam. Calender provided.
[2022-03-15 11:25] VITALS: BP 176/78; PULSE 89; RESP 14; TEMP 36.6; O2SAT 97; BMI 33.4
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
[2022-03-15 11:48] LABS: MANUAL DIFF FLAG NO
[2022-03-15 11:58] LABS: Basophils Absolute Auto 0.1 X10*3/uL (0.0-0.2); Basophils Percent Auto 0.6 % (0-2); Eosinophils Absolute Auto 0.2 X10*3/uL (0.0-0.4); Eosinophils Percent Auto 2.1 % (0-4); Hematocrit 39.3 % (42.0-52.0); Hemoglobin 13.3 g/dl (14.0-18.0); Imm Gran Abs Auto 0.05 X10*3/uL (0.00-0.03); Imm Gran Pct Auto 0.6 % (0.0-0.4); Lymphocytes Absolute Auto 1.1 X10*3/uL (1.2-4.9); Lymphocytes Percent Auto 13.8 % (20-40); Mean Corpuscular HGB Conc 33.8 g/dl (31.0-36.0); Mean Corpuscular Hemoglobin 32.2 pg (27.0-33.0); Mean Corpuscular Volume 95.2 fL (80.0-98.0); Mean Platelet Volume 10.6 fL (9.4-12.4); Monocytes Absolute Auto 0.8 X10*3/uL (0.1-1.2); Monocytes Percent Auto 10.3 % (2-11); Neutrophils Absolute Auto 5.8 x10*3/uL (2.0-8.3); Neutrophils Percent Auto 72.6 % (45-73); Platelet Count 249 X10*3/uL (160-400); Red Blood Count 4.13 X10*6/uL (4.60-5.80); Red Cell Distribution Width 11.9 % (11.0-16.0); White Blood Count 8.1 X10*3/uL (4.8-10.8)
[2022-03-15 12:40] LABS: Alanine Aminotransferase 29 U/L (0-40); Albumin Level 4.4 g/dL (3.5-5.0); Alkaline Phosphatase 69 U/L (39-117); Anion Gap 14 (12-20); Aspartate Amino Transferase 21 U/L (5-37); Bilirubin Total 0.5 mg/dL (0.0-1.0); Blood Urea Nitrogen 15 mg/dL (9-16); Calcium 9.2 mg/dL (8.4-10.2); Carbon Dioxide 23 mmol/L (22-29); Chloride 107 mmol/L (96-108); Creatinine Clr Calc Pharmacy 76.6; Estimated Glomerular Filt Rate > 60; Glucose Random 98 mg/dL (60-115); Lactate Dehydrogenase 213 U/L (118-273); Sodium 140 mmol/L (135-145); Total Protein 6.6 g/dL (6.5-8.0)
--- NOTE | 2022-03-15 13:00 | MHC.HEMONCMA ---
Pt was in for follow up. Clinical summary reviewed and updated, VSS. Labs were drawn. Pt to return 3 months.
--- NOTE | 2022-03-15 15:35 | MHC.HEMONC ---
Pt here for q 6 week port flush. Port accessed with blood return noted. Labs drawn from port-specimen to port. Port flushed with heparin and de accessed. Next appointment scheduled -calendar given
--- NOTE | 2022-04-16 11:43 | MHC.HEMONC ---
Pt here for port flush. Port accessed with blood return noted. Port flushed with heparin and de accessed. Next appointment scheduled-calendar given
--- NOTE | 2022-05-16 15:27 | MHC.HEMONC ---
I faxed application for Verena to [employer] for payment support as his fund has run out.
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
[2022-06-14 11:08] VITALS: BP 148/70; PULSE 80; RESP 16; TEMP 36.8; O2SAT 97; BMI 31.4
[2022-06-14 11:32] LABS: MANUAL DIFF FLAG NO
[2022-06-14 11:34] LABS: Basophils Percent Auto 0.5 % (0-2); Eosinophils Absolute Auto 0.2 X10*3/uL (0.0-0.4); Eosinophils Percent Auto 2.5 % (0-4); Hemoglobin 11.9 g/dl (14.0-18.0); Imm Gran Abs Auto 0.03 X10*3/uL (0.00-0.03); Imm Gran Pct Auto 0.4 % (0.0-0.4); Lymphocytes Absolute Auto 1.2 X10*3/uL (1.2-4.9); Mean Corpuscular HGB Conc 33.1 g/dl (31.0-36.0); Mean Corpuscular Volume 93.8 fL (80.0-98.0); Mean Platelet Volume 10.2 fL (9.4-12.4); Monocytes Absolute Auto 0.8 X10*3/uL (0.1-1.2); Monocytes Percent Auto 9.8 % (2-11); Neutrophils Absolute Auto 5.7 x10*3/uL (2.0-8.3); Neutrophils Percent Auto 71.8 % (45-73); Platelet Count 306 X10*3/uL (160-400); Red Blood Count 3.84 X10*6/uL (4.60-5.80); Red Cell Distribution Width 12.8 % (11.0-16.0); White Blood Count 7.9 X10*3/uL (4.8-10.8)
[2022-06-14 11:54] LABS: Alanine Aminotransferase 16 U/L (0-40); Albumin Level 4.1 g/dL (3.5-5.0); Alkaline Phosphatase 60 U/L (39-117); Anion Gap 13 (12-20); Aspartate Amino Transferase 15 U/L (5-37); Bilirubin Total 0.5 mg/dL (0.0-1.0); Blood Urea Nitrogen 14 mg/dL (9-16); Calcium 9.3 mg/dL (8.4-10.2); Carbon Dioxide 25 mmol/L (22-29); Chloride 107 mmol/L (96-108); Creatinine Clr Calc Pharmacy 78.7; Estimated Glomerular Filt Rate > 60; Glucose Random 101 mg/dL (60-115); Sodium 141 mmol/L (135-145); Total Protein 6.1 g/dL (6.5-8.0)
[2022-06-14 12:12] LABS: Influenza A PCR NEGATIVE (Negative); Influenza B PCR NEGATIVE (Negative); Resp Syncy Virus RNA Qual PCR NEGATIVE (Negative); SARS COV2 PCR INHOUSE NEGATIVE (Negative)
[2022-06-14 13:01] LABS: Lactate Dehydrogenase 172 U/L (118-273)
--- NOTE | 2022-06-14 13:28 | MHC.HEMONCMA ---
Patient seen today for followup lymphoma, VSS, labs, 2 month followup.
--- NOTE | 2022-06-14 13:49 | MHC.HEMONC ---
Pt here for port flush and follow up. Port to right chest flushed with saline, good blood return, labs drawn. Flu/covid/rsv swab obtained and sent for c/o cold symptoms. Calendar given with next port flush in 8 weeks. Pt departed.
[2022-08-09 11:13] VITALS: BP 129/62; PULSE 69; TEMP 36.7; O2SAT 97
[2022-08-09 11:19] LABS: MANUAL DIFF FLAG NO
[2022-08-09 11:24] LABS: Basophils Percent Auto 0.5 % (0-2); Eosinophils Absolute Auto 0.1 X10*3/uL (0.0-0.4); Eosinophils Percent Auto 1.7 % (0-4); Hematocrit 37.9 % (42.0-52.0); Hemoglobin 12.4 g/dl (14.0-18.0); Imm Gran Abs Auto 0.04 X10*3/uL (0.00-0.03); Imm Gran Pct Auto 0.5 % (0.0-0.4); Lymphocytes Absolute Auto 1.5 X10*3/uL (1.2-4.9); Lymphocytes Percent Auto 19.4 % (20-40); Mean Corpuscular HGB Conc 32.7 g/dl (31.0-36.0); Mean Corpuscular Hemoglobin 30.4 pg (27.0-33.0); Mean Corpuscular Volume 92.9 fL (80.0-98.0); Mean Platelet Volume 10.7 fL (9.4-12.4); Monocytes Absolute Auto 0.7 X10*3/uL (0.1-1.2); Monocytes Percent Auto 8.6 % (2-11); Neutrophils Absolute Auto 5.4 x10*3/uL (2.0-8.3); Neutrophils Percent Auto 69.3 % (45-73); Platelet Count 240 X10*3/uL (160-400); Red Blood Count 4.08 X10*6/uL (4.60-5.80); Red Cell Distribution Width 13.1 % (11.0-16.0); White Blood Count 7.8 X10*3/uL (4.8-10.8)
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
[2022-08-09 11:37] LABS: Alanine Aminotransferase 16 U/L (0-40); Albumin Level 4.1 g/dL (3.5-5.0); Alkaline Phosphatase 68 U/L (39-117); Anion Gap 12 (12-20); Aspartate Amino Transferase 16 U/L (5-37); Bilirubin Total 0.4 mg/dL (0.0-1.0); Blood Urea Nitrogen 19 mg/dL (9-16); Calcium 9.3 mg/dL (8.4-10.2); Carbon Dioxide 24 mmol/L (22-29); Chloride 108 mmol/L (96-108); Creatinine Clr Calc Pharmacy 70.7; Estimated Glomerular Filt Rate > 60; Glucose Random 114 mg/dL (60-115); Lactate Dehydrogenase 161 U/L (118-273); Potassium 4.1 mmol/L (3.3-5.1); Sodium 140 mmol/L (135-145); Total Protein 6.3 g/dL (6.5-8.0)
--- NOTE | 2022-08-09 11:42 | MHC.HEMONC ---
Pt here for lab draw, port flush and follow up with Dr Galvan. Port accessed with blood return noted. Labs drawn from port-specimen to lab. Port flushed with heparin and de accessed. Next port flush scheduled-calendar given to pt.
--- NOTE | 2022-08-09 13:06 | MHC.HEMONCMA ---
patient seen today for lymphoma/hodgkins, vss,labs following up in 2 months with provider
--- NOTE | 2022-08-21 11:47 | MHC.HEMONCMA ---
patient aware of ct chest 08/27 at 8am
[2022-10-04 11:07] VITALS: BP 168/73; PULSE 69; RESP 16; O2SAT 97
--- NOTE | 2022-10-04 11:30 | MHC.HEMONC ---
Routine port flush- port accessed without difficulty- positive blood return. Port flushed with Heparin and de-accessed. Calender provided with next appt. Patient requested last CT scan results. Dr. Galvan to call patient with results at her earliest convenience.
[2022-11-02 10:04] VITALS: BP 191/79; PULSE 74; O2SAT 97; BMI 31.2
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
[2022-11-02 10:36] LABS: MANUAL DIFF FLAG NO
[2022-11-02 10:46] LABS: Basophils Absolute Auto 0.1 X10*3/uL (0.0-0.2); Basophils Percent Auto 1.7 % (0-2); Eosinophils Absolute Auto 0.2 X10*3/uL (0.0-0.4); Eosinophils Percent Auto 2.2 % (0-4); Hematocrit 36.1 % (42.0-52.0); Hemoglobin 12.2 g/dl (14.0-18.0); Imm Gran Abs Auto 0.03 X10*3/uL (0.00-0.03); Imm Gran Pct Auto 0.4 % (0.0-0.4); Lymphocytes Absolute Auto 1.6 X10*3/uL (1.2-4.9); Lymphocytes Percent Auto 20.2 % (20-40); Mean Corpuscular HGB Conc 33.8 g/dl (31.0-36.0); Mean Corpuscular Hemoglobin 31.8 pg (27.0-33.0); Mean Platelet Volume 10.4 fL (9.4-12.4); Monocytes Absolute Auto 0.7 X10*3/uL (0.1-1.2); Monocytes Percent Auto 8.6 % (2-11); Neutrophils Absolute Auto 5.4 x10*3/uL (2.0-8.3); Neutrophils Percent Auto 66.9 % (45-73); Platelet Count 239 X10*3/uL (160-400); Red Blood Count 3.84 X10*6/uL (4.60-5.80); Red Cell Distribution Width 12.6 % (11.0-16.0); White Blood Count 8.1 X10*3/uL (4.8-10.8)
[2022-11-02 11:04] LABS: Alanine Aminotransferase 16 U/L (0-40); Albumin Level 4.2 g/dL (3.5-5.0); Alkaline Phosphatase 69 U/L (39-117); Anion Gap 14 (12-20); Aspartate Amino Transferase 16 U/L (5-37); Bilirubin Total 0.4 mg/dL (0.0-1.0); Blood Urea Nitrogen 20 mg/dL (9-16); Calcium 9.4 mg/dL (8.4-10.2); Carbon Dioxide 22 mmol/L (22-29); Chloride 108 mmol/L (96-108); Estimated Glomerular Filt Rate > 60; Glucose Random 100 mg/dL (60-115); Potassium 4.1 mmol/L (3.3-5.1); Sodium 140 mmol/L (135-145); Total Protein 6.8 g/dL (6.5-8.0)
--- NOTE | 2022-11-02 11:25 | MHC.HEMONCMA ---
patient seen today for lymphoma, vvss, labs, following up with provider in 3 months
--- NOTE | 2022-11-29 11:32 | MHC.HEMONC ---
Pt offers no complaints. port accessed and good blood return. flushed with saline and heparin and de accessed. Calendar given with next port flush and follow up.
[2023-02-01 10:02] VITALS: BP 159/72; PULSE 77; O2SAT 99
[2023-02-01 10:41] LABS: Hematocrit 35.3 % (42.0-52.0); Hemoglobin 11.6 g/dl (14.0-18.0); Mean Corpuscular HGB Conc 32.9 g/dl (31.0-36.0); Mean Corpuscular Hemoglobin 30.7 pg (27.0-33.0); Mean Corpuscular Volume 93.4 fL (80.0-98.0); Mean Platelet Volume 10.5 fL (9.4-12.4); Platelet Count 214 X10*3/uL (160-400); Red Blood Count 3.78 X10*6/uL (4.60-5.80); Red Cell Distribution Width 12.9 % (11.0-16.0)
[2023-02-01 10:45] LABS: WBC ABN SCTR FOR CBC 1
[2023-02-01 10:56] LABS: Alanine Aminotransferase 23 U/L (0-40); Albumin Level 4.1 g/dL (3.5-5.0); Alkaline Phosphatase 66 U/L (39-117); Anion Gap 11 (12-20); Aspartate Amino Transferase 21 U/L (5-37); Bilirubin Total 0.3 mg/dL (0.0-1.0); Blood Urea Nitrogen 21 mg/dL (9-16); Calcium 9.7 mg/dL (8.4-10.2); Carbon Dioxide 24 mmol/L (22-29); Chloride 108 mmol/L (96-108); Creatinine Clr Calc Pharmacy 65.4; Estimated Glomerular Filt Rate > 60; Glucose Random 112 mg/dL (60-115); Lactate Dehydrogenase 169 U/L (118-273); Potassium 4.1 mmol/L (3.3-5.1); Sodium 139 mmol/L (135-145); Total Protein 6.7 g/dL (6.5-8.0)
[2023-02-01 11:17] LABS: Atypical Lymphs Percent Manual 8 % (0-6); Band Neutrophils Percent 0 % (3-5); Basophils Percent Manual 1 % (0-2); Eosinophils Percent Manual 1 % (0-4); Lymphocytes Percent Manual 16 % (20-40); Monocytes Percent Manual 10 % (2-11); Neutrophils Percent Manual 64 % (45-73)
[2023-02-01 11:18] LABS: Platelet Estimate NORMAL (NORMAL); Platelet Morphology Comment NORMAL
[2023-02-01 11:19] LABS: RBC Morphology NORMAL
[2023-02-01 11:30] LABS: Atypical Lymph Absolute Manual 0.6 x10*3/uL; Basophils Abs Manual 0.1 X10*3/uL (0.0-0.2); Eosinophils Absolute Manual 0.1 X10*3/uL (0.0-0.4); Lymphocytes Absolute Manual 1.2 X10*3/uL (1.2-4.9); Monocytes Absolute Manual 0.8 X10*3/uL (0.1-1.2); White Blood Count 7.8 X10*3/uL (4.8-10.8)
--- NOTE | 2023-02-01 16:31 | MHC.HEMONC ---
Port accessed with good blood return noted. Labs obtained. Flushed with heparin 500units and de-accessed. Dr Galvan in for follow up. Next port flush in 8 weeks. Calendar given
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
--- NOTE | 2023-02-27 09:58 | HE.ONCSEC ---
Unable to LVM to remind pt of appt on 03/04/23 because pt does not have a VM.
--- NOTE | 2023-03-04 14:19 | MHC.HEMONC ---
Pt here for lab draw and port flush. Port accessed with blood return noted. Labs drawn from port-specimen to lab. Port flushed with heparin and de accessed. Next appointment scheduled-calendar given
[2023-03-04 14:31] LABS: Blood Urea Nitrogen 18 mg/dL (9-16); Creatinine Clr Calc Pharmacy 62.8; Estimated Glomerular Filt Rate > 60
--- NOTE | 2023-03-11 16:19 | MHC.HEMONC ---
Zanibrutinib rx and re-enrollment form for assistance faxed to [employer]. Pt is aware.
[2023-03-22 12:54] VITALS: BP 152/68; PULSE 81; O2SAT 98; BMI 32.1
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
--- NOTE | 2023-04-15 11:10 | MHC.HEMONC ---
Pt was in for Q8week port flush, Dr. Galvan requested labs checked. Nurse accessed pt's R chest implanted port in sterile procedure, flushed w/ NS, found positive blood return, then collected blood specimens. Nurse flushed again w/ NS and heparin 500 units, then de-accessed port. Pt also spoke briefly w/ Nurse Marlon Sherwood regarding oral targeted therapy scrip. Pt declined d/c packet, to return on 06/10/27 for next port flush and Onc f/u appt.
[2023-04-15 12:36] LABS: Alanine Aminotransferase 31 U/L (0-40); Albumin Level 3.9 g/dL (3.5-5.0); Alkaline Phosphatase 76 U/L (39-117); Anion Gap 14 (12-20); Aspartate Amino Transferase 27 U/L (5-37); Bilirubin Total 0.4 mg/dL (0.0-1.0); Blood Urea Nitrogen 18 mg/dL (9-16); Calcium 9.4 mg/dL (8.4-10.2); Carbon Dioxide 25 mmol/L (22-29); Chloride 105 mmol/L (96-108); Creatinine Clr Calc Pharmacy 68.9; Estimated Glomerular Filt Rate > 60; Glucose Random 90 mg/dL (60-115); Lactate Dehydrogenase 213 U/L (118-273); Sodium 140 mmol/L (135-145); Total Protein 6.6 g/dL (6.5-8.0)
[2023-06-10 09:52] VITALS: BP 145/70; PULSE 99; O2SAT 95; BMI 32.2
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
[2023-06-10 10:17] LABS: Hematocrit 33.5 % (42.0-52.0); Mean Corpuscular HGB Conc 32.8 g/dl (31.0-36.0); Mean Corpuscular Hemoglobin 30.1 pg (27.0-33.0); Mean Corpuscular Volume 91.8 fL (80.0-98.0); Mean Platelet Volume 10.2 fL (9.4-12.4); Platelet Count 209 X10*3/uL (160-400); Red Blood Count 3.65 X10*6/uL (4.60-5.80); Red Cell Distribution Width 13.2 % (11.0-16.0); WBC ABN SCTR FOR CBC 1
[2023-06-10 10:31] LABS: Alanine Aminotransferase 36 U/L (0-40); Alkaline Phosphatase 98 U/L (39-117); Anion Gap 11 (12-20); Aspartate Amino Transferase 29 U/L (5-37); Bilirubin Total 0.4 mg/dL (0.0-1.0); Blood Urea Nitrogen 19 mg/dL (9-16); Calcium 9.1 mg/dL (8.4-10.2); Carbon Dioxide 24 mmol/L (22-29); Chloride 107 mmol/L (96-108); Creatinine Clr Calc Pharmacy 63.4; Estimated Glomerular Filt Rate > 60; Glucose Random 130 mg/dL (60-115); Lactate Dehydrogenase 217 U/L (118-273); Potassium 3.8 mmol/L (3.3-5.1); Sodium 138 mmol/L (135-145); Total Protein 6.6 g/dL (6.5-8.0)
[2023-06-10 10:43] LABS: Atypical Lymphs Percent Manual 6 % (0-6); Band Neutrophils Percent 6 % (3-5); Burr Cells 1+ (0-2) /OIF; Eosinophils Percent Manual 1 % (0-4); Lymphocytes Percent Manual 9 % (20-40); Metamyelocytes Percent 2 %; Monocytes Percent Manual 5 % (2-11); Neutrophils Percent Manual 71 % (45-73); RBC Morphology NOTED
[2023-06-10 10:44] LABS: Platelet Estimate NORMAL (NORMAL); Platelet Morphology Comment NORMAL
[2023-06-10 14:09] LABS: Eosinophils Absolute Manual 0.2 X10*3/uL (0.0-0.4); Lymphocytes Absolute Manual 1.4 X10*3/uL (1.2-4.9); Metamyelocytes Absolute 0.3 X10*3/uL; Monocytes Absolute Manual 0.8 X10*3/uL (0.1-1.2); Neutrophils Absolute Manual 12.3 X10*3/uL (2.0-8.3)
--- NOTE | 2023-06-10 14:53 | MHC.HEMONC ---
Pt was in for Q8week port flush, while also here for Onc f/u appt. Pt had labs ordered. Nurse accessed pt's R chest implanted port in sterile procedure, flushed w/ NS, found positive blood return, then collected blood specimens, then flushed w/ NS and heparin 500 units, then de-accessed port. Pt was given d/c packet, to return on 08/12/23 for next port flush and Onc f/u appt.
[2023-08-12 10:01] VITALS: BP 157/70; PULSE 74; O2SAT 100; BMI 31.0
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
[2023-08-12 10:40] LABS: Mean Corpuscular HGB Conc 32.4 g/dl (31.0-36.0); Mean Corpuscular Volume 92.6 fL (80.0-98.0); Mean Platelet Volume 10.5 fL (9.4-12.4); Platelet Count 166 X10*3/uL (160-400); Red Blood Count 3.67 X10*6/uL (4.60-5.80); Red Cell Distribution Width 14.9 % (11.0-16.0)
[2023-08-12 10:42] LABS: WBC ABN SCTR FOR CBC 1
[2023-08-12 10:43] LABS: White Blood Count 12.7 X10*3/uL (4.8-10.8)
--- NOTE | 2023-08-12 10:55 | MHC.HEMONCMA ---
patient seen today for lymphoma, vss, labs, following up with provider in 3 months
[2023-08-12 11:02] LABS: Alanine Aminotransferase 43 U/L (0-40); Albumin Level 3.7 g/dL (3.5-5.0); Alkaline Phosphatase 181 U/L (39-117); Anion Gap 14 (12-20); Aspartate Amino Transferase 45 U/L (5-37); Bilirubin Total 0.4 mg/dL (0.0-1.0); Blood Urea Nitrogen 19 mg/dL (9-16); Calcium 9.4 mg/dL (8.4-10.2); Carbon Dioxide 24 mmol/L (22-29); Chloride 106 mmol/L (96-108); Creatinine Clr Calc Pharmacy 67.7; Estimated Glomerular Filt Rate > 60; Glucose Random 117 mg/dL (60-115); Lactate Dehydrogenase 253 U/L (118-273); Potassium 4.3 mmol/L (3.3-5.1); Sodium 140 mmol/L (135-145); Total Protein 6.5 g/dL (6.5-8.0)
[2023-08-12 11:14] LABS: Band Neutrophils Percent 0 % (3-5); Basophils Abs Manual 0.1 X10*3/uL (0.0-0.2); Basophils Percent Manual 1 % (0-2); Eosinophils Absolute Manual 0.1 X10*3/uL (0.0-0.4); Eosinophils Percent Manual 1 % (0-4); Lymphocytes Absolute Manual 6.4 X10*3/uL (1.2-4.9); Lymphocytes Percent Manual 50 % (20-40); Monocytes Absolute Manual 0.6 X10*3/uL (0.1-1.2); Monocytes Percent Manual 5 % (2-11); Neutrophils Absolute Manual 5.5 X10*3/uL (2.0-8.3); Neutrophils Percent Manual 43 % (45-73)
[2023-08-12 11:15] LABS: Platelet Estimate NORMAL (NORMAL); Platelet Morphology Comment NORMAL
[2023-08-12 11:16] LABS: RBC Morphology NORMAL
--- NOTE | 2023-08-12 11:29 | MHC.HEMONC ---
pt attended today for port flush and follow up with dr holt. power port used and left in for CT this afternoon. pt will return after CT for heparin flush.
--- NOTE | 2023-08-13 16:02 | HO.HEMONCPA ---
[facility] APPROVED FOR PET/CT SKULL TO [facility]IGH [id number] DOS 08/13/23 - 10/12/23 SENT TO [facility] FOR SCHEDULING
--- NOTE | 2023-08-14 15:52 | HO.HEMONCSCH ---
Patient booked for PEt[facility]CT at [facility] on SaturdayAugust 15 at 3pm
--- NOTE | 2023-08-23 15:07 | MHC.HEMONC ---
Addendum entered by Kaela Hardin RN 09/05/23 14:44: not [facility] Original Note: Per Dr Galvan, I requested appt at [facility] for patient who was previously seen there by Dr Peña for his Mantle Cell Lymphoma. I faxed recent imaging which showed progression to new pt fax so they could coordinate with an appropriate Provider as Dr Peña is no longer there.
--- NOTE | 2023-09-05 15:15 | MHC.HEMONCMA ---
per Kaela. called and spoke to Nena from [facility] regards to pt's appt status. Nena stated as of now there no appt booked yet due to financial clearance and she will have a medicare nurse call back tomorrow for additional info.
--- NOTE | 2023-09-06 11:53 | MHC.HEMONC ---
I called Dr Irby's office. Out of Network referral for [facility] completed and they are awaiting authorization. I did tell
--- NOTE | 2023-09-06 15:08 | MHC.HEMONC ---
Nurse spoke w/ Flores at [id number], asking about new scrip Dr. Galvan sent today for Pirtobrutinib. After consulting w/ Dr. Galvan, nurse confirmed that pt has stopped the zanubrutinib, and is to begin the Pirtobrutinib.
--- NOTE | 2023-09-09 10:31 | HO.HEMONCPA ---
Addendum entered by Thea Noriega 09/09/23 10:36: Request Reference Number: [id number]. JAYPIRCA TAB 100MG is approved through 09/08/2024. Your patient may now fill this prescription and it will be covered. Authorization Expiration Date:?09/08/2024 Original Note: [facility] STATED ON COVER MY MEDS FOR JAYPIRCA ROMERO CODE [id number]
[2023-09-12 14:52] LABS: Alanine Aminotransferase 56 U/L (0-40); Albumin Level 3.3 g/dL (3.5-5.0); Alkaline Phosphatase 269 U/L (39-117); Anion Gap 16 (12-20); Aspartate Amino Transferase 72 U/L (5-37); Bilirubin Total 0.7 mg/dL (0.0-1.0); Blood Urea Nitrogen 17 mg/dL (9-16); Calcium 8.8 mg/dL (8.4-10.2); Carbon Dioxide 23 mmol/L (22-29); Chloride 106 mmol/L (96-108); Creatinine Clr Calc Pharmacy 64.8; Estimated Glomerular Filt Rate > 60; Glucose Random 196 mg/dL (60-115); Lactate Dehydrogenase 410 U/L (118-273); Potassium 3.6 mmol/L (3.3-5.1); Sodium 141 mmol/L (135-145); Total Protein 5.8 g/dL (6.5-8.0)
[2023-09-12 14:56] LABS: Hematocrit 31.3 % (42.0-52.0); Hemoglobin 10.1 g/dl (14.0-18.0); Mean Corpuscular HGB Conc 32.3 g/dl (31.0-36.0); Mean Corpuscular Hemoglobin 29.7 pg (27.0-33.0); Mean Corpuscular Volume 92.1 fL (80.0-98.0); Mean Platelet Volume 10.5 fL (9.4-12.4); Platelet Count 157 X10*3/uL (160-400); Red Cell Distribution Width 15.7 % (11.0-16.0)
[2023-09-12 14:57] LABS: WBC ABN SCTR FOR CBC 1
[2023-09-12 15:15] LABS: HBS Num1 0.69 mIU/mL (0-7.99); HBc Num1 0.13 S/CO (0.00-0.79); HBsAGNum1 0.19 S/CO (0.00-0.99); Hepatitis A Antibody IgM 0.14 Index (0-0.79); Hepatitis B Core Antibody Nonreactive (Nonreactive); Hepatitis B Surface Antigen Negative (Negative); ~HepC Num1 0.07 S/CO (0.00-0.79); ~Hepatitis A Antibody IgM Nonreactive (Nonreactive); ~Hepatitis B Surface Antibody NONREACTIVE (Nonreactive); ~Hepatitis C Antibody Nonreactive (Nonreactive)
[2023-09-12 15:51] LABS: Atypical Lymphs Percent Manual 16 % (0-6); Band Neutrophils Percent 3 % (3-5); Eosinophils Percent Manual 1 % (0-4); Lymphocytes Percent Manual 15 % (20-40); Metamyelocytes Percent 2 %; Monocytes Percent Manual 4 % (2-11); Neutrophils Percent Manual 59 % (45-73)
[2023-09-12 15:52] LABS: Large Platelet PRESENT; Platelet Estimate NORMAL (NORMAL); Platelet Morphology Comment NOTED; RBC Morphology NORMAL
[2023-09-12 16:08] LABS: Eosinophils Absolute Manual 0.1 X10*3/uL (0.0-0.4)
[2023-09-12 16:09] LABS: Lymphocytes Absolute Manual 1.9 X10*3/uL (1.2-4.9); Metamyelocytes Absolute 0.3 X10*3/uL; Monocytes Absolute Manual 0.5 X10*3/uL (0.1-1.2); Neutrophils Absolute Manual 7.8 X10*3/uL (2.0-8.3); White Blood Count 12.5 X10*3/uL (4.8-10.8)
--- NOTE | 2023-09-12 16:57 | MHC.HEMONC ---
Pt was in for lab draw and teach appt to discuss new oral med Pirtobrutinib. Nurse accessed pt's R chest implanted port in sterile procedure, flushed w/ NS, obtained ordered blood specimens, then flushed w/ NS and heparin 500 units before de-accessing port. Pt reports feeling well today, though still tired, likely from previous oral med zanubrutinib, which he said he took final dose of yesterday, confirmed he will stop taking zanubrutinib, also that he received the pirtobrutinib today, took 1st dose of two 100 mg tablets, verbalized understanding to take two tablets PO daily at the same time every day. Nurse reviewed common side effects, neutropenia, anemia, thrombocytopenia, fatigue, muscle aches, as well as less common side effects, safe-handling precautions, importance of neutropenic precautions, to avoid using NSAIDs except for sporadically (ok by Dr. Galvan to take naproxen if it is not routinely used), also the importance of regular communication of any new symptoms. Per Dr. Galvan, pt is to return for f/u bloodwork every 2 weeks for the first month or two, to see how his labs respond. Pt met briefly w/ Dr. Galvan to ask more questions about pirtobrutinib, also said he does still plan to go to meet w/ provider at [facility], Nurse Marlon Sherwood and PA krystina Sidhu both confirmed special referral will have to be made by his PCP, Dr. Irby, but that it is in process, they will follow up next week. Pt declined d/c packet, to return in 2 weeks for f/u lab draw.
--- NOTE | 2023-09-17 10:28 | MHC.HEMONC ---
I faxed notes to [facility] for authorization to go out of network to [facility] for Consultation. Pt had been there before. Ref# [id number] and fax # [phone]. Receipt obtained.
--- NOTE | 2023-09-18 11:13 | MHC.HEMONC ---
pt approved through [facility] for one visit to [facility] [id number] August 22-Feb 23 2024.
--- NOTE | 2023-09-24 09:42 | MHC.HEMONC ---
I spoke to [facility]. They are faxing me the formal PA for pt to go to [facility] (attn:Ananya in [facility] Services)so pt could be called with appt.
--- NOTE | 2023-09-24 11:29 | MHC.HEMONC ---
Patient called to say that he has appt with Dr Lulú Leigh at [facility] on October 02 at 2:15.
--- NOTE | 2023-09-30 10:03 | MHC.HEMONC ---
Pt given disks of imaging to bring to [facility] on . He is going to [facility] to get his disk from there.
[2023-09-30 10:36] LABS: Hematocrit 33.5 % (42.0-52.0); Hemoglobin 10.5 g/dl (14.0-18.0); Mean Corpuscular HGB Conc 31.3 g/dl (31.0-36.0); Mean Corpuscular Volume 95.7 fL (80.0-98.0); Mean Platelet Volume 10.2 fL (9.4-12.4); Platelet Count 125 X10*3/uL (160-400); Red Cell Distribution Width 16.2 % (11.0-16.0)
[2023-09-30 10:38] LABS: WBC ABN SCTR FOR CBC 1
[2023-09-30 10:39] LABS: White Blood Count 16.1 X10*3/uL (4.8-10.8)
[2023-09-30 11:06] LABS: Alanine Aminotransferase 35 U/L (0-40); Albumin Level 3.5 g/dL (3.5-5.0); Alkaline Phosphatase 132 U/L (39-117); Anion Gap 16 (12-20); Aspartate Amino Transferase 49 U/L (5-37); Bilirubin Total 0.4 mg/dL (0.0-1.0); Blood Urea Nitrogen 19 mg/dL (9-16); Carbon Dioxide 24 mmol/L (22-29); Chloride 108 mmol/L (96-108); Creatinine Clr Calc Pharmacy 76.1; Estimated Glomerular Filt Rate > 60; Glucose Random 99 mg/dL (60-115); Potassium 4.3 mmol/L (3.3-5.1); Sodium 144 mmol/L (135-145); Total Protein 6.1 g/dL (6.5-8.0)
[2023-09-30 11:30] LABS: Atypical Lymph Absolute Manual 3.7 x10*3/uL; Atypical Lymphs Percent Manual 23 % (0-6); Band Neutrophils Percent 2 % (3-5); Blast Percent 2 %; Blastocytes Absolute 0.3 X10*3/uL; Eosinophils Absolute Manual 0.5 X10*3/uL (0.0-0.4); Eosinophils Percent Manual 3 % (0-4); Lymphocytes Absolute Manual 3.9 X10*3/uL (1.2-4.9); Lymphocytes Percent Manual 24 % (20-40); Monocytes Absolute Manual 0.8 X10*3/uL (0.1-1.2); Monocytes Percent Manual 5 % (2-11); Neutrophils Absolute Manual 6.9 X10*3/uL (2.0-8.3); Neutrophils Percent Manual 41 % (45-73)
[2023-09-30 11:33] LABS: Ovalocytes 1+ (5-14) /OIF; Platelet Estimate SLIGHTLY DECREASED (NORMAL); Platelet Morphology Comment NORMAL; RBC Morphology NOTED; Schistocytes 1+ (0-2) /OIF
--- NOTE | 2023-09-30 15:24 | MHC.HEMONC ---
Pt here for q2week labs. Labs were drawn by phlebotomy and results reviewed with Dr Galvan. Pt on Pictobrutinib. Pt reports feeling ok. Has appointment on for car- T consult in [place]. Pt departed with steady gait.
[2023-10-14 10:47] LABS: Hematocrit 33.8 % (42.0-52.0); Hemoglobin 10.8 g/dl (14.0-18.0); Mean Corpuscular Hemoglobin 30.6 pg (27.0-33.0); Mean Corpuscular Volume 95.8 fL (80.0-98.0); Mean Platelet Volume 10.2 fL (9.4-12.4); Platelet Count 115 X10*3/uL (160-400); Red Blood Count 3.53 X10*6/uL (4.60-5.80)
[2023-10-14 10:48] LABS: WBC ABN SCTR FOR CBC 1
[2023-10-14 10:59] LABS: Alanine Aminotransferase 26 U/L (0-40); Albumin Level 3.7 g/dL (3.5-5.0); Alkaline Phosphatase 125 U/L (39-117); Anion Gap 12 (12-20); Aspartate Amino Transferase 42 U/L (5-37); Bilirubin Total 0.5 mg/dL (0.0-1.0); Blood Urea Nitrogen 18 mg/dL (9-16); Calcium 9.4 mg/dL (8.4-10.2); Carbon Dioxide 26 mmol/L (22-29); Chloride 108 mmol/L (96-108); Creatinine Clr Calc Pharmacy 74.2; Estimated Glomerular Filt Rate > 60; Glucose Random 94 mg/dL (60-115); Lactate Dehydrogenase 312 U/L (118-273); Sodium 142 mmol/L (135-145); Total Protein 6.3 g/dL (6.5-8.0)
[2023-10-14 11:06] LABS: Band Neutrophils Percent 0 % (3-5); Eosinophils Percent Manual 4 % (0-4); Lymphocytes Percent Manual 52 % (20-40); Monocytes Percent Manual 2 % (2-11); Myelocytes Percent 1 %; Neutrophils Percent Manual 41 % (45-73)
[2023-10-14 11:13] LABS: Ovalocytes 1+ (5-14) /OIF; RBC Morphology NOTED
[2023-10-14 11:14] LABS: Platelet Estimate DECREASED (NORMAL); Platelet Morphology Comment NORMAL
[2023-10-14 11:15] LABS: Eosinophils Absolute Manual 0.6 X10*3/uL (0.0-0.4); Lymphocytes Absolute Manual 7.6 X10*3/uL (1.2-4.9); Monocytes Absolute Manual 0.3 X10*3/uL (0.1-1.2); Myelocytes Absolute 0.1 X10*/uL; White Blood Count 14.6 X10*3/uL (4.8-10.8)
--- NOTE | 2023-10-14 17:22 | MHC.HEMONC ---
Pt was in today for lab draw, Nurse accessed pt's R chest implanted port in sterile procedure, flushed w/ NS, obtained ordered blood specimens, then flushed w/ NS and heparin 500 units before de-accessing port. Pt's results to be reviewed by Dr. Galvan. Pt was given calendar of next appt, to return in 3 weeks for f/u w/ Dr. Galvan.
[2023-11-04 11:10] VITALS: BP 140/85; PULSE 110; O2SAT 94; BMI 31.1
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
[2023-11-04 12:06] LABS: Hematocrit 32.4 % (42.0-52.0); Hemoglobin 10.5 g/dl (14.0-18.0); Mean Corpuscular HGB Conc 32.4 g/dl (31.0-36.0); Mean Corpuscular Hemoglobin 31.3 pg (27.0-33.0); Mean Corpuscular Volume 96.4 fL (80.0-98.0); Mean Platelet Volume 10.2 fL (9.4-12.4); Platelet Count 123 X10*3/uL (160-400); Red Blood Count 3.36 X10*6/uL (4.60-5.80); Red Cell Distribution Width 16.3 % (11.0-16.0)
[2023-11-04 12:07] LABS: WBC ABN SCTR FOR CBC 1
[2023-11-04 12:09] LABS: Alanine Aminotransferase 29 U/L (0-40); Albumin Level 3.6 g/dL (3.5-5.0); Alkaline Phosphatase 171 U/L (39-117); Anion Gap 13 (12-20); Aspartate Amino Transferase 57 U/L (5-37); Bilirubin Total 0.5 mg/dL (0.0-1.0); Blood Urea Nitrogen 16 mg/dL (9-16); Calcium 9.3 mg/dL (8.4-10.2); Carbon Dioxide 24 mmol/L (22-29); Chloride 109 mmol/L (96-108); Creatinine Clr Calc Pharmacy 70.2; Estimated Glomerular Filt Rate > 60; Glucose Random 99 mg/dL (60-115); Lactate Dehydrogenase 411 U/L (118-273); Potassium 3.8 mmol/L (3.3-5.1); Sodium 142 mmol/L (135-145); Total Protein 6.3 g/dL (6.5-8.0)
[2023-11-04 12:43] LABS: Atypical Lymphs Percent Manual 2 % (0-6); Band Neutrophils Percent 2 % (3-5); Basophils Percent Manual 1 % (0-2); Eosinophils Percent Manual 3 % (0-4); Lymphocytes Percent Manual 17 % (20-40); Monocytes Percent Manual 19 % (2-11); Neutrophils Percent Manual 56 % (45-73)
[2023-11-04 12:44] LABS: Ovalocytes 1+ (5-14) /OIF; Platelet Estimate DECREASED (NORMAL); Platelet Morphology Comment NORMAL; Polychromasia 1+ (0-2) /OIF; RBC Morphology NOTED
[2023-11-04 12:47] LABS: Atypical Lymph Absolute Manual 0.3 x10*3/uL; Basophils Abs Manual 0.1 X10*3/uL (0.0-0.2); Eosinophils Absolute Manual 0.4 X10*3/uL (0.0-0.4); Lymphocytes Absolute Manual 2.4 X10*3/uL (1.2-4.9); Monocytes Absolute Manual 2.7 X10*3/uL (0.1-1.2); Neutrophils Absolute Manual 8.2 X10*3/uL (2.0-8.3); White Blood Count 14.1 X10*3/uL (4.8-10.8)
--- NOTE | 2023-11-04 17:22 | MHC.HEMONC ---
Patient in for follow up with Dr Galvan. Labs ordered. Patient requested to have labs completed through port. Port to right chest wall accessed without difficulty- positive blood return. Labs obtained and reviewed. Port flushed with Heparin and de-accessed. Calender provided with next port flush. Michelle to schedule follow up.
[2023-12-02] MEDS: Heparin Sodium,Porcine Flush 500 UNIT/5 ML SYRINGE IVFLUSH (10:25)
[2023-12-02 11:01] LABS: Hematocrit 32.3 % (42.0-52.0); Hemoglobin 10.3 g/dl (14.0-18.0); Mean Corpuscular HGB Conc 31.9 g/dl (31.0-36.0); Mean Corpuscular Hemoglobin 31.5 pg (27.0-33.0); Mean Corpuscular Volume 98.8 fL (80.0-98.0); Mean Platelet Volume 10.4 fL (9.4-12.4); NRBC Pct Auto 0.6 /100WBC (0.0-0.2); Platelet Count 129 X10*3/uL (160-400); Red Blood Count 3.27 X10*6/uL (4.60-5.80); Red Cell Distribution Width 16.8 % (11.0-16.0)
[2023-12-02 11:02] LABS: WBC ABN SCTR FOR CBC 1
[2023-12-02 11:17] LABS: Alanine Aminotransferase 30 U/L (0-40); Albumin Level 3.2 g/dL (3.5-5.0); Alkaline Phosphatase 229 U/L (39-117); Anion Gap 13 (12-20); Aspartate Amino Transferase 67 U/L (5-37); Bilirubin Total 0.8 mg/dL (0.0-1.0); Blood Urea Nitrogen 15 mg/dL (9-16); Calcium 8.8 mg/dL (8.4-10.2); Carbon Dioxide 23 mmol/L (22-29); Chloride 107 mmol/L (96-108); Creatinine Clr Calc Pharmacy 77.2; Estimated Glomerular Filt Rate > 60; Glucose Random 108 mg/dL (60-115); Sodium 139 mmol/L (135-145); Total Protein 5.9 g/dL (6.5-8.0)
[2023-12-02 11:21] LABS: White Blood Count 14.4 X10*3/uL (4.8-10.8)
[2023-12-02 11:28] LABS: Band Neutrophils Percent 0 % (3-5); Eosinophils Absolute Manual 0.3 X10*3/uL (0.0-0.4); Eosinophils Percent Manual 2 % (0-4); Lymphocytes Absolute Manual 6.5 X10*3/uL (1.2-4.9); Metamyelocytes Absolute 0.1 X10*3/uL; Metamyelocytes Percent 1 %; Monocytes Absolute Manual 0.6 X10*3/uL (0.1-1.2); Monocytes Percent Manual 4 % (2-11); Neutrophils Absolute Manual 6.9 X10*3/uL (2.0-8.3); Neutrophils Percent Manual 48 % (45-73)
[2023-12-02 11:29] LABS: Ovalocytes 1+ (5-14) /OIF; Platelet Estimate DECREASED (NORMAL); Platelet Morphology Comment NORMAL; RBC Morphology NOTED
[2023-12-02 11:34] LABS: Lymphocytes Percent Manual 45 % (20-40)
--- NOTE | 2023-12-02 13:19 | MHC.HEMONC ---
pt attended for port flush he had mention great fatigue since starting new chemo pill, labs stable. dr holt aware she will look into it and call pt before next follow up in Oct.
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
[2024-01-10 11:10] VITALS: BP 191/91; PULSE 100; O2SAT 96; BMI 29.7
[2024-01-10 11:59] LABS: Hematocrit 31.8 % (42.0-52.0); Mean Corpuscular HGB Conc 31.4 g/dl (31.0-36.0); Mean Corpuscular Hemoglobin 32.2 pg (27.0-33.0); Mean Corpuscular Volume 102.3 fL (80.0-98.0); Mean Platelet Volume 10.9 fL (9.4-12.4); Platelet Count 101 X10*3/uL (160-400); Red Blood Count 3.11 X10*6/uL (4.60-5.80); Red Cell Distribution Width 18.4 % (11.0-16.0)
[2024-01-10 12:05] LABS: NRBC Pct Auto 3.2 /100WBC (0.0-0.2); WBC ABN SCTR FOR CBC 1
[2024-01-10 12:21] LABS: Alanine Aminotransferase 25 U/L (0-40); Alkaline Phosphatase 240 U/L (39-117); Anion Gap 13 (12-20); Aspartate Amino Transferase 77 U/L (5-37); Bilirubin Total 1.1 mg/dL (0.0-1.0); Blood Urea Nitrogen 14 mg/dL (9-16); Calcium 8.7 mg/dL (8.4-10.2); Carbon Dioxide 24 mmol/L (22-29); Chloride 106 mmol/L (96-108); Creatinine Clr Calc Pharmacy 88.8; Estimated Glomerular Filt Rate > 60; Glucose Random 101 mg/dL (60-115); Lactate Dehydrogenase 576 U/L (118-273); Potassium 3.7 mmol/L (3.3-5.1); Sodium 139 mmol/L (135-145)
[2024-01-10 12:27] LABS: Iron 67 mcg/dL (45-160); Percent Iron Saturation 20 % (15-50); Total Iron Binding Capacity 337 mcg/dL (228-428); Unsaturated Iron Binding 270 ug/dL
[2024-01-10 12:30] LABS: D Dimer High Sensitivity 3490 NG/ML
[2024-01-10 12:37] LABS: Ferritin 415 ng/mL (20-250)
--- NOTE | 2024-01-10 12:50 | MHC.HEMONC ---
Here for follow up and labs. Port accessed with good blood return noted. Labs obtained, port flushed with heparin and de-accessed. Tolerated procedure well.
[2024-01-10 12:51] LABS: Folate 14.4 ng/mL (> or = 4.0); Vitamin B12 807 pg/mL (200-900)
[2024-01-10 13:26] LABS: Atypical Lymphs Percent Manual 7 % (0-6); Band Neutrophils Percent 0 % (3-5); Eosinophils Percent Manual 1 % (0-4); Lymphocytes Percent Manual 26 % (20-40); Metamyelocytes Percent 2 %; Monocytes Percent Manual 2 % (2-11); Myelocytes Percent 1 %; Neutrophils Percent Manual 61 % (45-73); Nucleated Red Blood Cells 6 /100WBC (0-0)
[2024-01-10 13:32] LABS: Burr Cells 1+ (0-2) /OIF; Macrocytosis 1+ (5-14) /OIF; Platelet Estimate NORMAL (NORMAL); Platelet Morphology Comment NORMAL; Polychromasia 1+ (0-2) /OIF; RBC Morphology NOTED
[2024-01-10 13:34] LABS: Atypical Lymph Absolute Manual 1.1 x10*3/uL; Eosinophils Absolute Manual 0.2 X10*3/uL (0.0-0.4); Lymphocytes Absolute Manual 4.1 X10*3/uL (1.2-4.9); Metamyelocytes Absolute 0.3 X10*3/uL; Monocytes Absolute Manual 0.3 X10*3/uL (0.1-1.2); Myelocytes Absolute 0.2 X10*/uL; Neutrophils Absolute Manual 9.6 X10*3/uL (2.0-8.3); White Blood Count 15.8 X10*3/uL (4.8-10.8)
[2024-01-27 10:14] VITALS: BP 122/73; PULSE 109; RESP 18; TEMP 38.6; O2SAT 96; BMI 28.4
[2024-01-27] MEDS: Heparin Sodium,Porcine Flush 500 UNIT/5 ML SYRINGE IVFLUSH (10:30)
[2024-01-27 10:58] LABS: Hematocrit 31.3 % (42.0-52.0); Mean Corpuscular HGB Conc 31.9 g/dl (31.0-36.0); Mean Corpuscular Hemoglobin 33.3 pg (27.0-33.0); Mean Corpuscular Volume 104.3 fL (80.0-98.0); Mean Platelet Volume 11.2 fL (9.4-12.4); Red Cell Distribution Width 20.6 % (11.0-16.0)
[2024-01-27] MEDS: 0.9 % Sodium Chloride 1,000 ML 999 ML IV (10:58)
[2024-01-27 11:00] LABS: NRBC Pct Auto 2.9 /100WBC (0.0-0.2); Platelet Count 79 X10*3/uL (160-400); WBC ABN SCTR FOR CBC 1
[2024-01-27 11:15] LABS: Alanine Aminotransferase 13 U/L (0-40); Albumin Level 2.9 g/dL (3.5-5.0); Alkaline Phosphatase 197 U/L (39-117); Anion Gap 12 (12-20); Aspartate Amino Transferase 66 U/L (5-37); Bilirubin Total 1.4 mg/dL (0.0-1.0); Blood Urea Nitrogen 16 mg/dL (9-16); Calcium 8.8 mg/dL (8.4-10.2); Carbon Dioxide 26 mmol/L (22-29); Chloride 105 mmol/L (96-108); Creatinine Clr Calc Pharmacy 67.9; Estimated Glomerular Filt Rate > 60; Glucose Random 97 mg/dL (60-115); Lactate Dehydrogenase 436 U/L (118-273); Sodium 139 mmol/L (135-145); Total Protein 5.7 g/dL (6.5-8.0)
[2024-01-27 11:17] LABS: White Blood Count 14.9 X10*3/uL (4.8-10.8)
--- NOTE | 2024-01-27 11:17 | MHC.HEMONC ---
Pt here for follow up Lymphoma/Hodgkins. Pt face flush, Reports fatigue, required wheel chair today for long walk to [facility]. VS taken T101.5 HR 109-111, Dr Galvan notified and evaled patient. Pt has appointment in [place] today. Port to right chest accessed, Good blood return, labs drawn. Pt to be hydrated with 1 liter of NS and tylenol for fever.
[2024-01-27 11:21] LABS: Atypical Lymph Absolute Manual 1.5 x10*3/uL; Atypical Lymphs Percent Manual 10 % (0-6); Band Neutrophils Percent 0 % (3-5); Basophils Abs Manual 0.1 X10*3/uL (0.0-0.2); Basophils Percent Manual 1 % (0-2); Lymphocytes Absolute Manual 2.1 X10*3/uL (1.2-4.9); Lymphocytes Percent Manual 14 % (20-40); Monocytes Absolute Manual 0.3 X10*3/uL (0.1-1.2); Monocytes Percent Manual 2 % (2-11); Neutrophils Absolute Manual 10.9 X10*3/uL (2.0-8.3); Neutrophils Percent Manual 73 % (45-73); Nucleated Red Blood Cells 1 /100WBC (0-0)
[2024-01-27 11:22] LABS: Large Platelet PRESENT; Macrocytosis 1+ (5-14) /OIF; Ovalocytes 1+ (5-14) /OIF; Platelet Estimate SLIGHTLY DECREASED (NORMAL); RBC Morphology NOTED
[2024-01-27 11:23] LABS: Platelet Morphology Comment NOTE; Polychromasia 1+ (0-2) /OIF
[2024-01-27] MEDS: Acetaminophen 325 MG TABLET 650 MG PO (11:35)
[2024-01-27] MEDS: cefTRIAXone sodium 2 GM VIAL IVPUSH (11:36)
[2024-01-27 11:42] LABS: HBS Num1 0.05 mIU/mL (0-7.99); HBc Num1 0.25 S/CO (0.00-0.79); HBsAGNum1 0.53 S/CO (0.00-0.99); Hepatitis B Core Antibody Nonreactive (Nonreactive); Hepatitis B Surface Antigen Negative (Negative); ~Hepatitis B Surface Antibody NONREACTIVE (Nonreactive)
[2024-01-27 11:54] LABS: Influenza A PCR NEGATIVE (Negative); Influenza B PCR NEGATIVE (Negative); Resp Syncy Virus RNA Qual PCR NEGATIVE (Negative); SARS COV2 PCR INHOUSE NEGATIVE (Negative)
--- NOTE | 2024-01-27 16:15 | MHC.HEMONC ---
Pt here for ONC follow up with Dr Galvan. Temp 101.5-Dr Galvan notified. Plan for IV hydration, tylenol, Rocephin. Port accessed with blood return noted. 0.9% NS 1000 ml, Rocephin 2 grams, 650mg tylenol given as ordered. Temp 98.7 after IV hydration , tylenol and Rocephin. Port flushed with heparin and de accessed. Next appointment scheduled. Discharged to front of hospital via wheelchair. Pt states he has appointment today in [place]
== END 2024-02-17 10:56 | disposition expired ==
LOC: HO.ONC 10:00
PROVIDERS: PCP Internal Medicine; Visit Provider Internal Medicine Medical Oncology
DX: C83.15 Mantle cell lymphoma, lymph nodes of inguinal region and lower limb (principal); Z79.899 Other long term (current) drug therapy; Z92.21 Personal history of antineoplastic chemotherapy
CPT/HCPCS: 0241U; 36415; 36591; 80053; 82232; 82565; 82607; 82728; 82746; 83540; 83615; 84520; 85007; 85025; 85027; 85379; 86704; 86706; 86709; 86803; 87340; 93005; 96361; 96366; 96367; 96372; 96374; 96375; 96377; 96409; 96411; 96413; 96415; 96417; 96523; 99211; 99212; 99213; 99214; J0696; J1100; J1200; J1453; J1642; J2405; J2505; J9000; J9070; J9312; J9370